=== PATIENT | female | born 2000 | race Caucasian/White ===

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

== ENCOUNTER 2019-02-15 18:34 | Emergency (ER) | payer OTHER ==
[2019-02-15 19:43] VITALS: BP 117/65; PULSE 86; RESP 18; TEMP 98.1
[2019-02-15 20:32] LABS: Appearance,Urine Cloudy (Clear); Bilirubin,Urine Negative (Negative); Blood,Urine Small (Negative); Color,Urine Yellow; Glucose,Urine (UA) Negative (Negative); Ketones,Urine Negative (Negative); Leukocyte Esterase,Urine Large (Negative); Mucus,Urine Many /hpf; Nitrite,Urine Negative (Negative); Protein,Urine 1+ (Negative); RBC,Urine 58 /hpf (0-5); Specific Gravity,Urine 1.032 (1.001-1.035); Squamous Epithelial Cell,Urine 3 /hpf (0-4); Urobilinogen,Urine <2.0 mg/dL (<2.0)
[2019-02-15 20:33] LABS: African American GFR (CKD) >90 (>60 ml/min/1.73 sqM); Anion Gap 8 mmol/L; Blood Urea Nitrogen 12 mg/dL (7-17); Calcium 9.6 mg/dL (8.4-10.2); Carbon Dioxide 24 mmol/L (22-30); Chloride 108 mmol/L (98-107); Glucose 79 mg/dL (74-99); Potassium 3.8 mmol/L (3.5-5.1); Sodium 140 mmol/L (137-145)
--- NOTE | 2019-02-15 20:34 | ED ---
Female Urogenital HPI - General Chief complaint: Urogenital Stated complaint: POSS UTI, 17 WEEKS AND CRAMPING Time Seen by Provider: 02/15/19 19:46 Source: patient Mode of arrival: ambulatory Limitations: no limitations - History of Present Illness Initial comments: Patient is a 18-year-old female presenting to the emergency Department with com plaints of burning when she urinates 1 day. Patient admits to being 17 weeks . Patient is . Patient has [facility] appointment next month with Dr. Solis. Patient has not yet seen her OB for this . Patient also admits to some lower abdominal cramping x 1 day. Patient states the cramping is minimal this time. Patient denies vaginal bleeding, discharge, rashes, lesions. Patient denies fever, chills, nausea, vomiting. No other complaints at this time. - Related Data Previous Rx's Medication Instructions Recorded Cephalexin [Keflex] 500 mg PO BID 5 Days #10 cap 02/15/19 Allergies Allergy/AdvReac Type Severity Reaction Status Date / Time latex Allergy Intermediate Rash/Hives Verified 02/15/19 19:56 Review of Systems ROS Statement: Those systems with pertinent positive or pertinent negative responses have been documented in the HPI. ROS Other: All systems not noted in ROS Statement are negative. Past Medical History Past Medical History: No Reported History Additional Past Medical History / Comment(s): Obstetric history: First was a vaginal delivery. THis is her second and she had care with me since the first trimester. O+, abs neg, Rub Imm, RPR NR, Hep B neg, HIV NR. normal anatomy US. GBS neg History of Any Multi-Drug Resistant Organisms: None Reported Past Surgical History: Hernia Repair, Tonsillectomy Past Anesthesia/Blood Transfusion Reactions: No Reported Reaction Past Psychological History: Anxiety, Depression Smoking Status: Never smoker Past Alcohol Use History: None Reported Past Drug Use History: None Reported - Past Family History Mother Family Medical History: Hypertension General Exam - General Exam Comments Initial Comments: GENERAL: Well-appearing, well-nourished and in no acute distress. HEAD: Atraumatic, normocephalic. EYES: Pupils equal round and reactive to light, extraocular movements intact, sclera anicteric, conjunctiva are normal. ENT: TMs normal, nares patent, oropharynx clear without exudates. Moist mucous membranes. NECK: Normal range of motion, supple without lymphadenopathy or JVD. LUNGS: Breath sounds clear to auscultation bilaterally and equal. No wheezes rales or rhonchi. HEART: Regular rate and rhythm without murmurs, rubs or gallops. ABDOMEN: Soft, nontender, normoactive bowel sounds. No guarding, no rebound. No masses appreciated. : Deferred, pt declined EXTREMITIES: Normal range of motion, no pitting or edema. No clubbing or cyano sis. NEUROLOGICAL: Cranial nerves II through XII grossly intact. Normal speech, normal gait. PSYCH: Normal mood, normal affect. SKIN: Warm, Dry, normal turgor, no rashes or lesions noted. Limitations: no limitations Course Vital Signs 02/15/19 19:40 Temperature 98.1 F Pulse Rate 86 Respiratory 18 Rate Blood Pressure 117/65 O2 Sat by Pulse 97 Oximetry Medical Decision Making - Medical Decision Making Patient is a 18-year-old female presenting with burning with urination 1 day. Patient does admit to being 17 weeks and has an appointment with Dr. Solis next month. Patient denies any vaginal bleeding. Patient does admit to mild lower abdominal cramping 1 day. Patient denies fever, chills, nausea, vomiting. On exam patient has no abdominal tenderness. Patient declined vaginal exam at this time. CBC, CMP are within normal limits. HCG quantitative is 45,000. UA is consistent with UTI with over 182 WBCs. Patient will be treated for UTI with Keflex and will follow-up with Dr. Solis as needed if symptoms do not improve. Patient will be discharged home. Patient is in agreement with this plan. Case discussed with Dr. Schneider. Return parameters were discussed with patient and she verbalized understanding. - Lab Data Result diagrams: 02/15/19 20:20 02/15/19 20:20 Lab Results 02/15/19 02/15/19 02/15/19 Range/Units 20:10 20:10 20:20 WBC (4.0-11.0) k/uL RBC (3.80-5.40) m/uL Hgb (11.4-16.0) gm/dL Hct (34.0-46.0) % MCV (80.0-100.0) fL MCH (25.0-35.0) pg MCHC (31.0-37.0) g/dL RDW (11.5-15.5) % Plt Count (150-450) k/uL Neutrophils % % Lymphocytes % % Monocytes % % Eosinophils % % Basophils % % Neutrophils # (1.3-7.7) k/uL Lymphocytes # (1.0-4.8) k/uL Monocytes # (0-1.0) k/uL Eosinophils # (0-0.7) k/uL Basophils # (0-0.2) k/uL Sodium 140 (137-145) mmol/L Potassium 3.8 (3.5-5.1) mmol/L Chloride 108 H (98-107) mmol/L Carbon Dioxide 24 (22-30) mmol/L Anion Gap 8 mmol/L BUN 12 (7-17) mg/dL Creatinine 0.55 (0.52-1.04) mg/dL Est GFR (CKD-EPI)AfAm >90 (>60 ml/min/1.73 sqM) Est GFR (CKD-EPI)NonAf >90 (>60 ml/min/1.73 sqM) Glucose 79 (74-99) mg/dL Calcium 9.6 (8.4-10.2) mg/dL HCG, Quant 13284.5 mIU/mL Urine Color Yellow Urine Appearance Cloudy H (Clear) Urine pH 6.0 (5.0-8.0) Ur Specific [place] 1.032 (1.001-1.035) Urine Protein 1+ H (Negative) Urine Glucose (UA) Negative (Negative) Urine Ketones Negative (Negative) Urine Blood Small H (Negative) Urine Nitrite Negative (Negative) Urine Bilirubin Negative (Negative) Urine Urobilinogen <2.0 (<2.0) mg/dL Ur Leukocyte Esterase Large H (Negative) Urine RBC 58 H (0-5) /hpf Urine WBC >182 H (0-5) /hpf Ur Squamous Epith Cells 3 (0-4) /hpf Urine Mucus Many H (None) /hpf 02/15/19 Range/Units 20:20 WBC 9.3 (4.0-11.0) k/uL RBC 4.49 (3.80-5.40) m/uL Hgb 11.7 (11.4-16.0) gm/dL Hct 35.4 (34.0-46.0) % MCV 78.9 L (80.0-100.0) fL MCH 26.2 (25.0-35.0) pg MCHC 33.2 (31.0-37.0) g/dL RDW 15.2 (11.5-15.5) % Plt Count 313 (150-450) k/uL Neutrophils % 72 % Lymphocytes % 22 % Monocytes % 3 % Eosinophils % 2 % Basophils % 0 % Neutrophils # 6.7 (1.3-7.7) k/uL Lymphocytes # 2.1 (1.0-4.8) k/uL Monocytes # 0.3 (0-1.0) k/uL Eosinophils # 0.2 (0-0.7) k/uL Basophils # 0.0 (0-0.2) k/uL Sodium (137-145) mmol/L Potassium (3.5-5.1) mmol/L Chloride (98-107) mmol/L Carbon Dioxide (22-30) mmol/L Anion Gap mmol/L BUN (7-17) mg/dL Creatinine (0.52-1.04) mg/dL Est GFR (CKD-EPI)AfAm (>60 ml/min/1.73 sqM) Est GFR (CKD-EPI)NonAf (>60 ml/min/1.73 sqM) Glucose (74-99) mg/dL Calcium (8.4-10.2) mg/dL HCG, Quant mIU/mL Urine Color Urine Appearance (Clear) Urine pH (5.0-8.0) Ur Specific [place] (1.001-1.035) Urine Protein (Negative) Urine Glucose (UA) (Negative) Urine Ketones (Negative) Urine Blood (Negative) Urine Nitrite (Negative) Urine Bilirubin (Negative) Urine Urobilinogen (<2.0) mg/dL Ur Leukocyte Esterase (Negative) Urine RBC (0-5) /hpf Urine WBC (0-5) /hpf Ur Squamous Epith Cells (0-4) /hpf Urine Mucus (None) /hpf Disposition Clinical Impression: Urinary tract infection, and not yet delivered in second trimester Disposition: HOME SELF-CARE Condition: Stable Instructions (If sedation given, give patient instructions): Urinary Tract Infection in Women (ED) Additional Instructions: Please return to the Emergency Department if symptoms worsen or any other concerns. Follow-up with [facility] if symptoms continue in 2-3 days. Prescriptions: Cephalexin [Keflex] 500 mg PO BID 5 Days #10 cap Is patient prescribed a controlled substance at d/c from ED?: No Referrals: Jose Ventura MD [Primary Care Provider] - 1-2 days
[2019-02-15 20:37] LABS: Basophils % (A) 0 %; Eosinophils # (A) 0.2 k/uL (0-0.7); Eosinophils % (A) 2 %; HCT 35.4 % (34.0-46.0); HGB 11.7 gm/dL (11.4-16.0); Lymphocytes # (A) 2.1 k/uL (1.0-4.8); Lymphocytes % (A) 22 %; MCH 26.2 pg (25.0-35.0); MCHC 33.2 g/dL (31.0-37.0); MCV 78.9 fL (80.0-100.0); Monocytes # (A) 0.3 k/uL (0-1.0); Monocytes % (A) 3 %; Neutrophils # (A) 6.7 k/uL (1.3-7.7); Neutrophils % (A) 72 %; Platelet Count 313 k/uL (150-450); RBC 4.49 m/uL (3.80-5.40); RDW 15.2 % (11.5-15.5); WBC 9.3 k/uL (4.0-11.0)
== END 2019-02-15 22:23 | disposition home or self-care (01) ==
LOC: EC 18:34
DX: O23.42 Unspecified infection of urinary tract in pregnancy, second trimester (principal); Z91.040 Latex allergy status; Z3A.17 17 weeks gestation of pregnancy; Z53.20 Procedure and treatment not carried out because of patient's decision for unspecified reasons
CPT/HCPCS: 36415; 80048; 81001; 84702; 85025; 87086; 99284

== ENCOUNTER 2019-08-19 05:54 | Inpatient (IN) | payer OTHER ==
[2019-08-19] MEDS ORDERED: CARBOPROST TROMETHAMINE 250 MCG/ML 1 ML AMP IM PRN (06:05)
[2019-08-19] MEDS ORDERED: OXYTOCIN 10 UNIT/ML 1 ML VIAL IM PRN (06:05)
[2019-08-19] MEDS ORDERED: LIDOCAINE 0.5% (PF) 5 MG/ML (50 ML SDV) SQ PRN (06:05)
[2019-08-19] MEDS ORDERED: METHYLERGONOVINE 0.2 MG/ML 1 ML AMP IM PRN (06:05)
[2019-08-19] MEDS ORDERED: TERBUTALINE 1 MG/ML VIAL SQ PRN (06:05)
[2019-08-19] MEDS ORDERED: OXYTOCIN 30 UNITS/500 ML NS 30 UNIT in SALINE 1 500ML.BAG IV SCH (06:15)
[2019-08-19] MEDS: LACTATED RINGERS 1,000 ML IV SCH ×3 (06:30→12:19)
[2019-08-19 06:46] LABS: Basophils % (A) 0 %; Eosinophils # (A) 0.1 k/uL (0-0.7); Eosinophils % (A) 1 %; HCT 35.9 % (34.0-46.0); HGB 11.9 gm/dL (11.4-16.0); Lymphocytes # (A) 1.7 k/uL (1.0-4.8); Lymphocytes % (A) 16 %; MCH 26.9 pg (25.0-35.0); MCHC 33.3 g/dL (31.0-37.0); MCV 80.8 fL (80.0-100.0); Mean Platelet Volume 7.3; Monocytes # (A) 0.4 k/uL (0-1.0); Monocytes % (A) 4 %; Neutrophils # (A) 8.8 k/uL (1.3-7.7); Neutrophils % (A) 79 %; Platelet Count 294 k/uL (150-450); RBC 4.44 m/uL (3.80-5.40); RDW 14.5 % (11.5-15.5); WBC 11.2 k/uL (4.0-11.0)
[2019-08-19] MEDS ORDERED: SODIUM CHLORIDE 0.9% 100 ML BAG ONE (10:41)
[2019-08-19] MEDS ORDERED: ROPIVACAINE 5MG/ML 20ML VIAL ONE (10:41)
[2019-08-19] MEDS ORDERED: fentaNYL (PF) 50 MCG/ML 5 ML AMP ONE (10:41)
--- NOTE | 2019-08-19 12:57 | P.HPOB ---
History of Present Illness H&P Date: 08/19/19 Chief Complaint: Induction of labor 19-year-old presents at 39 weeks for induction of labor. Her cervix was 2 cm dilated, 70% effaced, and -2 station. She is robin irregularly. heart tones 130 with moderate variability and reactive. Review of Systems All systems: negative Constitutional: Denies chills, Denies fever Eyes: denies blurred vision, denies pain Ears, nose, mouth and throat: Denies headache, Denies sore throat Cardiovascular: Denies chest pain, Denies shortness of breath Respiratory: Denies cough Gastrointestinal: Denies abdominal pain, Denies diarrhea, Denies nausea, Denies vomiting Genitourinary: Denies dysuria, Denies hematuria Musculoskeletal: Denies myalgias Integumentary: Denies pruritus, Denies rash Neurological: Denies numbness, Denies weakness Psychiatric: Denies anxiety, Denies depression Endocrine: Denies fatigue, Denies weight change Past Medical History Past Medical History: No Reported History Additional Past Medical History / Comment(s): Obstetric history: First 2 pregnancies were vaginal deliveries. THis is her second and she had care with me since the first trimester. She did have 7 weeks in the middle of her when she did not have care as she did not show up for her visits. O+, abs neg, Rub Imm, RPR NR, Hep B neg, HIV NR. normal anatomy US. GBS neg History of Any Multi-Drug Resistant Organisms: None Reported Past Surgical History: Hernia Repair, Tonsillectomy Past Anesthesia/Blood Transfusion Reactions: No Reported Reaction Past Psychological History: Anxiety, Depression Smoking Status: Never smoker Past Alcohol Use History: None Reported Past Drug Use History: None Reported - Past Family History Mother Family Medical History: Hypertension Medications and Allergies Home Medications Medication Instructions Recorded Confirmed Type No Known Home Medications 08/19/19 08/19/19 History Allergies Allergy/AdvReac Type Severity Reaction Status Date / Time latex Allergy Intermediate Rash/Hives Verified 08/19/19 06:04 Exam Osteopathic Statement: *. No significant issues noted on an osteopathic st ructural exam other than those noted in the History and Physical/Consult. Vital Signs Temp Pulse Resp BP Pulse Ox 08/19/19 06:06 97.7 F 100 18 128/94 99 Intake and Output 08/18/19 08/19/19 08/19/19 22:59 06:59 14:59 Other: Weight 115.666 kg Heart: Regular rate and rhythm Lungs: Clear to auscultation bilaterally Abdomen: Soft, nontender Extremities: Negative Homans sign Results Result Diagrams: 08/19/19 06:30 Abnormal Lab Results - Last 24 Hours (Table) 08/19/19 Range/Units 06:30 WBC 11.2 H (4.0-11.0) k/uL Neutrophils # 8.8 H (1.3-7.7) k/uL Assessment and Plan (1) Normal labor Current Visit: No Status: Resolved Code(s): O80 - ENCOUNTER FOR FULL-TERM UNCOMPLICATED DELIVERY SNOMED Code(s): 73971317 Plan: 1. Induction of labor with amniotomy and Pitocin 2. Anticipate normal vaginal delivery
[2019-08-19] MEDS ORDERED: ACETAMINOPHEN TAB 325 MG TAB PO PRN (16:29)
[2019-08-19] MEDS ORDERED: SIMETHICONE 80 MG CHEWABLE PO PRN (16:29)
[2019-08-19] MEDS ORDERED: WITCH HAZEL 1 EACH MED..PAD TOPICAL PRN (16:29)
[2019-08-19] MEDS ORDERED: ZOLPIDEM 5 MG TAB PO PRN (16:29)
[2019-08-19] MEDS ORDERED: BENZOCAINE/MENTHOL SPRAY 1 GM/SPRAY AEROSOL TOPICAL PRN (16:29)
[2019-08-19] MEDS ORDERED: diphenhydrAMINE 50 MG/ML 1 ML VIAL IVP PRN ×2 (16:29)
[2019-08-19] MEDS ORDERED: HYDROCORTISONE 2.5% RECTAL CREAM 30 GM TUBE RECTAL PRN (16:29)
[2019-08-19] MEDS ORDERED: diphenhydrAMINE 25 MG CAP PO PRN (16:29)
[2019-08-19] MEDS ORDERED: LANOLIN CREAM 5 GM TUBE TOPICAL PRN (16:29)
[2019-08-19] MEDS ORDERED: diphenhydrAMINE 50 MG CAP PO PRN (16:29)
[2019-08-19] MEDS ORDERED: OXYTOCIN 20 UNITS/1000 ML NS 1,000 ML IV SCH (16:30)
--- NOTE | 2019-08-19 17:26 | P.PROBDLV ---
Vaginal Delivery Note - . Vaginal Delivery Note: 19-year-old presents at 39 weeks for induction of labor. Her cervix was 2 cm dilated, 70% effaced, and -2 station. She is robin irregularly. heart tones 130 with moderate variability and reactive. Pitocin was started. Amniotomy performed at 7:30 AM and clear fluid noted. When she was uncomfortable she did get an epidural. Around noon she was 5 cm, 80% effaced, and -2 station. Her cervix is completely dilated at 1600. She pushed and delivered a viable female over intact perineum under epidural anesthesia at 1614. Head delivered OA, anterior shoulder delivered gentle downward guidance. Posterior shoulder and rest of body. Nose and mouth bulb suctioned, cord clamped and cut, placed mother's abdomen. Apgars 9, 9, weight 6 lbs. 14 oz. Placenta delivered spontaneously, intact with three-vessel cord at 1616. Vagina, cervix, and perineum were inspected. A right periurethral laceration was repaired with 3-0 Vicryl. Estimated blood loss 150 mL. Mother and baby in stable condition.
[2019-08-19] MEDS: SENNOSIDES-DOCUSATE SODIUM 1 EACH TAB PO SCH (21:30)
[2019-08-20] MEDS: IBUPROFEN 600 MG TAB PO PRN ×2 (02:28→12:52)
[2019-08-20 04:39] VITALS: TEMP 98.2
[2019-08-20 07:42] LABS: Basophils # (A) 0.1 k/uL (0-0.2); Basophils % (A) 1 %; Eosinophils # (A) 0.1 k/uL (0-0.7); Eosinophils % (A) 1 %; HCT 31.7 % (34.0-46.0); HGB 10.7 gm/dL (11.4-16.0); Lymphocytes # (A) 1.7 k/uL (1.0-4.8); Lymphocytes % (A) 16 %; MCH 27.4 pg (25.0-35.0); MCHC 33.8 g/dL (31.0-37.0); Mean Platelet Volume 7.6; Monocytes # (A) 0.4 k/uL (0-1.0); Monocytes % (A) 4 %; Neutrophils # (A) 8.6 k/uL (1.3-7.7); Neutrophils % (A) 79 %; Platelet Count 277 k/uL (150-450); RBC 3.91 m/uL (3.80-5.40); RDW 14.3 % (11.5-15.5); WBC 10.9 k/uL (4.0-11.0)
[2019-08-20] MEDS: SENNOSIDES-DOCUSATE SODIUM 1 EACH TAB PO SCH (09:24)
[2019-08-20 09:25] VITALS: BP 131/70; PULSE 83; RESP 16
--- NOTE | 2019-08-20 11:16 | DS ---
DISCHARGE SUMMARY PRINCIPAL DIAGNOSIS: day 2. This very pleasant 19-year-old female delivered via vaginal delivery, a viable female on 08/18/2019. She is doing very well today. She is ambulating, voiding, and tolerating her diet and she voices no complaints. Her vital signs are stable and afebrile. HEART: Regular. LUNGS: Clear. EXTREMITIES: Without pain. ABDOMEN: Soft. Uterus was firm and lochia is reported to be light. Prescription for Motrin has been provided. Discharge instructions were thoroughly reviewed and handout was provided. All questions were answered for her prior to her discharge. She will follow up with Dr. Solis in 6 weeks. MMODL / IJN: [id number] /
== END 2019-08-20 17:15 | disposition home or self-care (01) | DRG 807 ==
LOC: 4FBP 05:54
PROVIDERS: ADMIT Obstetrics & Gynecology; ATTEND Obstetrics & Gynecology
PROC: 10E0XZZ Delivery of Products of Conception, External Approach (ICD-10-PCS; principal; 2019-08-19)
PROC: 0HQ9XZZ Repair Perineum Skin, External Approach (ICD-10-PCS; 2019-08-19)
PROC: 00HU33Z Insertion of Infusion Device into Spinal Canal, Percutaneous Approach (ICD-10-PCS; 2019-08-19)
PROC: 3E0R3BZ Introduction of Anesthetic Agent into Spinal Canal, Percutaneous Approach (ICD-10-PCS; 2019-08-19)
DX: O99.62 Diseases of the digestive system complicating childbirth (principal); Z37.0 Single live birth; O71.82 Other specified trauma to perineum and vulva; K21.9 Gastro-esophageal reflux disease without esophagitis; Z3A.39 39 weeks gestation of pregnancy; Z86.59 Personal history of other mental and behavioral disorders; Z91.040 Latex allergy status; Z82.49 Family history of ischemic heart disease and other diseases of the circulatory system
CPT/HCPCS: 85025; 86850; 86900; 86901

== ENCOUNTER 2020-04-08 16:17 | Emergency (ER) | payer OTHER ==
[2020-04-08 16:33] VITALS: BP 124/82; PULSE 87; RESP 18; TEMP 98
[2020-04-08 18:12] LABS: Basophils # (A) 0.1 k/uL (0-0.2); Basophils % (A) 1 %; Eosinophils # (A) 0.2 k/uL (0-0.7); Eosinophils % (A) 2 %; HCT 37.8 % (34.0-46.0); HGB 12.3 gm/dL (11.4-16.0); Lymphocytes # (A) 2.2 k/uL (1.0-4.8); Lymphocytes % (A) 20 %; MCH 24.9 pg (25.0-35.0); MCHC 32.5 g/dL (31.0-37.0); MCV 76.7 fL (80.0-100.0); Mean Platelet Volume 6.8; Microcytosis Slight; Monocytes # (A) 0.4 k/uL (0-1.0); Monocytes % (A) 4 %; Neutrophils # (A) 8.1 k/uL (1.3-7.7); Neutrophils % (A) 73 %; Platelet Count 361 k/uL (150-450); RBC 4.93 m/uL (3.80-5.40); RDW 14.8 % (11.5-15.5); WBC 11.1 k/uL (3.8-10.6)
[2020-04-08 18:16] LABS: Appearance,Urine Turbid (Clear); Bacteria,Urine Few /hpf; Bilirubin,Urine Negative (Negative); Blood,Urine Negative (Negative); Color,Urine Yellow; Glucose,Urine (UA) Negative (Negative); Ketones,Urine Negative (Negative); Leukocyte Esterase,Urine Small (Negative); Mucus,Urine Many /hpf; Nitrite,Urine Negative (Negative); Protein,Urine Trace (Negative); RBC,Urine 3 /hpf (0-5); Specific Gravity,Urine 1.032 (1.001-1.035); Squamous Epithelial Cell,Urine 40 /hpf (0-4); Urobilinogen,Urine <2.0 mg/dL (<2.0); WBC,Urine 5 /hpf (0-5)
--- NOTE | 2020-04-08 18:16 | XR ---
EXAMINATION TYPE: XR chest 2V DATE OF EXAM: 04/08/2020 COMPARISON: NONE HISTORY: Chest pain TECHNIQUE: FINDINGS: Heart and mediastinum are normal. Lungs are clear. Diaphragm is normal. Bony thorax appears normal. IMPRESSION: Normal chest. Normal heart.
[2020-04-08 18:22] LABS: ALT 18 U/L (4-34); AST 24 U/L (14-36); African American GFR (CKD) >90 (>60 ml/min/1.73 sqM); Albumin 4.3 g/dL (3.5-5.0); Alkaline Phosphatase 78 U/L (38-126); Anion Gap 7 mmol/L; Blood Urea Nitrogen 16 mg/dL (7-17); Calcium 9.7 mg/dL (8.4-10.2); Carbon Dioxide 27 mmol/L (22-30); Chloride 103 mmol/L (98-107); Glucose 95 mg/dL (74-99); Non-African American GFR(CKD) >90 (>60 ml/min/1.73 sqM); Potassium 4.2 mmol/L (3.5-5.1); Sodium 137 mmol/L (137-145); Total Bilirubin 0.7 mg/dL (0.2-1.3); Total Protein 7.2 g/dL (6.3-8.2)
[2020-04-08 18:26] LABS: D-Dimer 0.55 mg/L FEU (<0.60); INR 0.9 (<1.2); Partial Thromboplastin Time 24.2 sec (22.0-30.0); Prothrombin Time 9.8 sec (9.0-12.0)
--- NOTE | 2020-04-08 18:37 | ED ---
Abdominal Pain HPI - General Chief Complaint: Abdominal Pain Stated Complaint: chest pain Time Seen by Provider: 04/08/20 17:05 Source: patient Mode of arrival: ambulatory Limitations: no limitations - History of Present Illness Initial Comments: Patient is a 20-year-old female who presents to the emergency room with reported epigastric abdominal pain and chest pain for the past 2 months. Reports it has been intermittent. Denies any provocative factors. Admits to associated nausea without vomiting. Denies taking any medications for her symptoms. No previous abdominal surgeries. Denies any lower pelvic pain. No fevers or chills. Denies any vomiting. No cough or hemoptysis. Denies any shortness of breath. No history of premature cardiac in her family. She denies concern for . No abnormal vaginal bleeding or discharge. No dysuria, hematuria or difficulty voiding. Denies patient, diarrhea, melenic stools or hematochezia. No other alleviating, precipitating or modifying factors - Related Data Home Medications Medication Instructions Recorded Confirmed No Known Home Medications 08/19/19 08/19/19 Allergies Allergy/AdvReac Type Severity Reaction Status Date / Time latex Allergy Intermediate Rash/Hives Verified 04/08/20 16:33 Review of Systems ROS Statement: Those systems with pertinent positive or pertinent negative responses have been documented in the HPI. ROS Other: All systems not noted in ROS Statement are negative. Past Medical History Past Medical History: No Reported History Additional Past Medical History / Comment(s): Obstetric history: First 2 pregnancies were vaginal deliveries. THis is her second and she had care with tx since the first trimester. She did have 7 weeks in the middle of her when she did not have care as she did not show up for her visits. O+, abs neg, Rub Imm, RPR NR, Hep B neg, HIV NR. normal anatomy US. GBS neg History of Any Multi-Drug Resistant Organisms: None Reported Past Surgical History: Hernia Repair, Tonsillectomy Past Anesthesia/Blood Transfusion Reactions: No Reported Reaction Past Psychological History: Anxiety, Depression Smoking Status: Never smoker Past Alcohol Use History: None Reported Past Drug Use History: None Reported - Past Family History Mother Family Medical History: Hypertension General Exam Limitations: no limitations General appearance: alert, in no apparent distress Head exam: Present: atraumatic, normocephalic, normal inspection Eye exam: Present: normal appearance, PERRL, EOMI. Absent: scleral icterus, conjunctival injection, periorbital swelling ENT exam: Present: normal exam, mucous membranes moist Neck exam: Present: normal inspection. Absent: tenderness, meningismus, lymphadenopathy Respiratory exam: Present: normal lung sounds bilaterally. Absent: respiratory distress, wheezes, rales, rhonchi, stridor Cardiovascular Exam: Present: regular rate, normal rhythm, normal heart sounds. Absent: systolic murmur, diastolic murmur, rubs, gallop, clicks GI/Abdominal exam: Present: soft, tenderness (epigastric), normal bowel sounds. Absent: distended, guarding, rebound, rigid Extremities exam: Present: normal inspection, full ROM, normal capillary refill. Absent: tenderness, pedal edema, joint swelling, calf tenderness Back exam: Present: normal inspection Neurological exam: Present: alert, oriented X3, CN II-XII intact Psychiatric exam: Present: normal affect, normal mood Skin exam: Present: warm, dry, intact, normal color. Absent: rash Course Vital Signs 04/08/20 16:28 Temperature 98 F Pulse Rate 87 Respiratory 18 Rate Blood Pressure 124/82 O2 Sat by Pulse 99 Oximetry Medical Decision Making - Medical Decision Making Upon arrival patient is placed into room 20. A thorough history and physical exam was performed. PIV is established. Laboratory studies were conducted. The lead EKG was performed. Patient went for chest x-ray because of reported chest pain. Ultrasound was also performed of her gallbladder. Laboratory studies are unremarkable. Urinalysis is not a clean catch. Negative hCG. Chest x-ray demonstrates no acute findings. A bladder ultrasound demonstrates cholelithiasis. No signs of acute cholecystitis. Patient did have an elevated d-dimer. She is sent over for a CT of her chest which demonstrates no signs of PE. The results are discussed with the patient. I discussed diagnosis, differential and treatment options. Patient will be discharged home and is to eat a low-fat diet. Follow up with the surgeon on-call, Dr. Gonzales for further treatment options. Return to the emergency department should she have any new or worsening symptoms per patient was discharged home in stable condition - Lab Data Result diagrams: 04/08/20 17:40 04/08/20 17:40 Lab Results 04/08/20 04/08/20 04/08/20 Range/Units 17:40 17:40 17:40 WBC 11.1 H (3.8-10.6) k/uL RBC 4.93 (3.80-5.40) m/uL Hgb 12.3 (11.4-16.0) gm/dL Hct 37.8 (34.0-46.0) % MCV 76.7 L (80.0-100.0) fL MCH 24.9 L (25.0-35.0) pg MCHC 32.5 (31.0-37.0) g/dL RDW 14.8 (11.5-15.5) % Plt Count 361 (150-450) k/uL Neutrophils % 73 % Lymphocytes % 20 % Monocytes % 4 % Eosinophils % 2 % Basophils % 1 % Neutrophils # 8.1 H (1.3-7.7) k/uL Lymphocytes # 2.2 (1.0-4.8) k/uL Monocytes # 0.4 (0-1.0) k/uL Eosinophils # 0.2 (0-0.7) k/uL Basophils # 0.1 (0-0.2) k/uL Microcytosis Slight PT 9.8 (9.0-12.0) sec INR 0.9 (<1.2) APTT 24.2 (22.0-30.0) sec D-Dimer 0.55 (<0.60) mg/L FEU Sodium (137-145) mmol/L Potassium (3.5-5.1) mmol/L Chloride (98-107) mmol/L Carbon Dioxide (22-30) mmol/L Anion Gap mmol/L BUN (7-17) mg/dL Creatinine (0.52-1.04) mg/dL Est GFR (CKD-EPI)AfAm (>60 ml/min/1.73 sqM) Est GFR (CKD-EPI)NonAf (>60 ml/min/1.73 sqM) Glucose (74-99) mg/dL Calcium (8.4-10.2) mg/dL Total Bilirubin (0.2-1.3) mg/dL AST (14-36) U/L ALT (4-34) U/L Alkaline Phosphatase (38-126) U/L Troponin I (0.000-0.034) ng/mL Total Protein (6.3-8.2) g/dL Albumin (3.5-5.0) g/dL Lipase (23-300) U/L Urine Color Yellow Urine Appearance Turbid H (Clear) Urine pH 5.0 (5.0-8.0) Ur Specific [place] 1.032 (1.001-1.035) Urine Protein Trace H (Negative) Urine Glucose (UA) Negative (Negative) Urine Ketones Negative (Negative) Urine Blood Negative (Negative) Urine Nitrite Negative (Negative) Urine Bilirubin Negative (Negative) Urine Urobilinogen <2.0 (<2.0) mg/dL Ur Leukocyte Esterase Small H (Negative) Urine RBC 3 (0-5) /hpf Urine WBC 5 (0-5) /hpf Ur Squamous Epith Cells 40 H (0-4) /hpf Urine Bacteria Few H (None) /hpf Urine Mucus Many H (None) /hpf Urine HCG, Qual (Not Detectd) 04/08/20 04/08/20 04/08/20 Range/Units 17:40 17:40 17:40 WBC (3.8-10.6) k/uL RBC (3.80-5.40) m/uL Hgb (11.4-16.0) gm/dL Hct (34.0-46.0) % MCV (80.0-100.0) fL MCH (25.0-35.0) pg MCHC (31.0-37.0) g/dL RDW (11.5-15.5) % Plt Count (150-450) k/uL Neutrophils % % Lymphocytes % % Monocytes % % Eosinophils % % Basophils % % Neutrophils # (1.3-7.7) k/uL Lymphocytes # (1.0-4.8) k/uL Monocytes # (0-1.0) k/uL Eosinophils # (0-0.7) k/uL Basophils # (0-0.2) k/uL Microcytosis PT (9.0-12.0) sec INR (<1.2) APTT (22.0-30.0) sec D-Dimer (<0.60) mg/L FEU Sodium 137 (137-145) mmol/L Potassium 4.2 (3.5-5.1) mmol/L Chloride 103 (98-107) mmol/L Carbon Dioxide 27 (22-30) mmol/L Anion Gap 7 mmol/L BUN 16 (7-17) mg/dL Creatinine 0.64 (0.52-1.04) mg/dL Est GFR (CKD-EPI)AfAm >90 (>60 ml/min/1.73 sqM) Est GFR (CKD-EPI)NonAf >90 (>60 ml/min/1.73 sqM) Glucose 95 (74-99) mg/dL Calcium 9.7 (8.4-10.2) mg/dL Total Bilirubin 0.7 (0.2-1.3) mg/dL AST 24 (14-36) U/L ALT 18 (4-34) U/L Alkaline Phosphatase 78 (38-126) U/L Troponin I <0.012 (0.000-0.034) ng/mL Total Protein 7.2 (6.3-8.2) g/dL Albumin 4.3 (3.5-5.0) g/dL Lipase 35 (23-300) U/L Urine Color Urine Appearance (Clear) Urine pH (5.0-8.0) Ur Specific [place] (1.001-1.035) Urine Protein (Negative) Urine Glucose (UA) (Negative) Urine Ketones (Negative) Urine Blood (Negative) Urine Nitrite (Negative) Urine Bilirubin (Negative) Urine Urobilinogen (<2.0) mg/dL Ur Leukocyte Esterase (Negative) Urine RBC (0-5) /hpf Urine WBC (0-5) /hpf Ur Squamous Epith Cells (0-4) /hpf Urine Bacteria (None) /hpf Urine Mucus (None) /hpf Urine HCG, Qual Not Detected (Not Detectd) - EKG Data EKG Comments: EKG demonstrates a normal sinus rhythm with a ventricular rate of 82. WV interval 186. QRS 98. QTC of 4 mL 4. No acute ST segment elevations or depressions concerning for ischemic changes Disposition Clinical Impression: Abdominal pain, Cholelithiasis Disposition: HOME SELF-CARE Condition: Stable Instructions (If sedation given, give patient instructions): Gallstones (ED) Additional Instructions: Please follow up with the surgeon for further treatment options. Return to the emergency room for any new or worsening symptoms Is patient prescribed a controlled substance at d/c from ED?: No Referrals: None,Stated [Primary Care Provider] - 1-2 days Vaishnavi Gonzales DO [Doctor of Osteopathic Medicine] - 1-2 days Time of Disposition: 20:01
--- NOTE | 2020-04-08 18:40 | US ---
EXAMINATION TYPE: US gallbladder DATE OF EXAM: 04/08/2020 COMPARISON: NONE CLINICAL HISTORY: trauma. Pt states chest pain and excessive belching post prandial EXAM MEASUREMENTS: Liver Length: 16.1 cm Gallbladder Wall: 0.3 cm CBD: 0.3 cm Right Kidney: 10.2 x 4.2 x 5.1 cm Morbidly obese pt unable to take full breath in and hold it/ Difficult exam Pancreas: wnl, tail obscured by overlying bowel gas Liver: Visualized portions appeared wnl, difficult to visualize due to large pt body habitus Gallbladder: Lumen filled with gallstones, wall thickness upper limits of normal Evidence for sonographic Jean's sign: No CBD: wnl Right Kidney: wnl IMPRESSION: Numerous gallstones. No definite sign of acute cholecystitis. No dilated ducts.
--- NOTE | 2020-04-08 19:44 | CT ---
EXAMINATION TYPE: CT chest angio for PE DATE OF EXAM: 04/08/2020 COMPARISON: None HISTORY: chest discomfort CT DLP: 1011.1 mGycm Automated exposure control for dose reduction was used. CONTRAST: Performed with IV Contrast, patient injected with 77cc mL of Isovue 370. Lung bases are clear. There is no pleural effusion. Heart size is normal. There is no pericardial eff usion. The lungs are clear of infiltrate. Liver spleen stomach pancreas appear normal. Bile ducts are not dilated. There are probably multiple calcified gallstones. There is no pericardial effusion. There is no mediastinal adenopathy. There are no hilar masses. Thor acic aorta is intact. There is no aneurysm or dissection. There is normal contrast opacification of the pulmonary arteries. There are no filling defects. Thora cic spine is intact. Sternum is intact. IMPRESSION: No evidence of pulmonary embolism. Lungs are clear. Cholelithiasis.
== END 2020-04-08 20:32 | disposition home or self-care (01) ==
LOC: EC 16:17
DX: K80.20 Calculus of gallbladder without cholecystitis without obstruction (principal); R07.9 Chest pain, unspecified; R79.89 Other specified abnormal findings of blood chemistry; Z91.040 Latex allergy status
CPT/HCPCS: 99284; 36415; 93005; 85379; 80053; 83690; 84484; 85025; 85610; 85730; 81001; 81025; 71046; 76705; 71275; Q9967

== ENCOUNTER 2020-05-21 00:53 | Emergency (ER) | payer OTHER ==
[2020-05-21] MEDS ORDERED: SODIUM CHLORIDE 0.9% 1,000 ML IV ONE (01:16)
[2020-05-21 01:42] LABS: Basophils % (A) 0 %; Eosinophils # (A) 0.3 k/uL (0-0.7); Eosinophils % (A) 3 %; HCT 39.5 % (34.0-46.0); HGB 12.3 gm/dL (11.4-16.0); Lymphocytes # (A) 2.5 k/uL (1.0-4.8); Lymphocytes % (A) 29 %; MCH 24.8 pg (25.0-35.0); MCV 79.9 fL (80.0-100.0); Mean Platelet Volume 6.9; Monocytes # (A) 0.4 k/uL (0-1.0); Monocytes % (A) 4 %; Neutrophils # (A) 5.4 k/uL (1.3-7.7); Neutrophils % (A) 62 %; Platelet Count 328 k/uL (150-450); RBC 4.95 m/uL (3.80-5.40); RDW 14.8 % (11.5-15.5); WBC 8.7 k/uL (3.8-10.6)
--- NOTE | 2020-05-21 02:19 | ED ---
Extremity Problem HPI - General Chief complaint: Extremity Problem,Nontraumatic Stated complaint: Leg Pain Time Seen by Provider: 05/21/20 01:15 Source: patient Mode of arrival: ambulatory Limitations: no limitations - History of Present Illness Initial comments: Torrie is a previously healthy 20 yo female presents the ER today for reevaluation of bilateral lower extremity pain. Patient reports that she's had pain in her bilateral lower extremities for approximately 3-4 days. Pain is not constant, it alternates between each legs and sometimes present in both legs. Pain is described as an ache that feels like it comes from them bones. She also reports intermittent numbness and tingling of her toes the states that this week she had been wearing shoes that were too small for her when walking to get her son from school and she thought that that was contributing to her pain. She has not noted any swelling or color change in her legs. She was seen at the walk-in clinic earlier today the tested her for diabetes and and advised that she follow-up with her primary care physician. She has no history of blood clots she is not on any estrogen supplements she does not have any known cancers no long trips or immobilization of the leg. - Related Data Home Medications Medication Instructions Recorded Confirmed No Known Home Medications 08/19/19 08/19/19 Allergies Allergy/AdvReac Type Severity Reaction Status Date / Time latex Allergy Intermediate Rash/Hives Verified 05/21/20 01:02 Review of Systems ROS Statement: Those systems with pertinent positive or pertinent negative responses have been documented in the HPI. ROS Other: All systems not noted in ROS Statement are negative. Past Medical History Past Medical History: No Reported History Additional Past Medical History / Comment(s): Obstetric history: First 2 preg nancies were vaginal deliveries. THis is her second and she had care with me since the first trimester. She did have 7 weeks in the middle of her when she did not have care as she did not show up for her visits. O+, abs neg, Rub Imm, RPR NR, Hep B neg, HIV NR. normal anatomy US. GBS neg History of Any Multi-Drug Resistant Organisms: None Reported Past Surgical History: Hernia Repair, Tonsillectomy Past Anesthesia/Blood Transfusion Reactions: No Reported Reaction Past Psychological History: Anxiety, Depression Smoking Status: Never smoker Past Alcohol Use History: None Reported Past Drug Use History: None Reported - Past Family History Mother Family Medical History: Hypertension General Exam - General Exam Comments Initial Comments: Physical Exam GENERAL: Patient is well-developed and well-nourished. Patient is nontoxic and well-hydrated and is in no distress. HENT: Normocephalic, Atraumatic. EYES: PERRL, EOMI PULMONARY: Unlabored respirations. CARDIOVASCULAR: RRR Warm and well perfused extremities No lower extremity edema Strong DP and PT pulses bilaterally ABDOMEN: Non-distended SKIN: No rashes or bruising : Deferred NEUROLOGIC: Alert and oriented Normal speech Normal gait MUSCULOSKELETAL: Moving all extremities with no apparent injury PSYCHIATRIC: No SI/HI Limitations: no limitations Course Vital Signs 05/21/20 00:57 Temperature 98 F Pulse Rate 100 Respiratory 18 Rate Blood Pressure 140/94 O2 Sat by Pulse 100 Oximetry Medical Decision Making - Medical Decision Making The patient was seen and evaluated history was obtained from patient Patient's been experiencing intermittent cramping of her lower extremities, not constant, alternates between legs occasionally present in both legs Patient did have excessive walking this week to get her son to and from school and does report that she was she was wearing were 2 small Physical exams unremarkable there is no edema she has strong pulses good color good cap refill Basic labs were ordered to make sure there is no evidence of elevated creatinine kinase or any electrolyte abnormalities Labs were unremarkable, patient be discharged home with supportive care for her muscle aches. - Lab Data Result diagrams: 05/21/20 01:22 05/21/20 01:22 Lab Results 05/21/20 05/21/20 Range/Units 01:22 01:22 WBC 8.7 (3.8-10.6) k/uL RBC 4.95 (3.80-5.40) m/uL Hgb 12.3 (11.4-16.0) gm/dL Hct 39.5 (34.0-46.0) % MCV 79.9 L (80.0-100.0) fL MCH 24.8 L (25.0-35.0) pg MCHC 31.0 (31.0-37.0) g/dL RDW 14.8 (11.5-15.5) % Plt Count 328 (150-450) k/uL Neutrophils % 62 % Lymphocytes % 29 % Monocytes % 4 % Eosinophils % 3 % Basophils % 0 % Neutrophils # 5.4 (1.3-7.7) k/uL Lymphocytes # 2.5 (1.0-4.8) k/uL Monocytes # 0.4 (0-1.0) k/uL Eosinophils # 0.3 (0-0.7) k/uL Basophils # 0.0 (0-0.2) k/uL Sodium 139 (137-145) mmol/L Potassium 4.2 (3.5-5.1) mmol/L Chloride 106 (98-107) mmol/L Carbon Dioxide 26 (22-30) mmol/L Anion Gap 7 mmol/L BUN 16 (7-17) mg/dL Creatinine 0.69 (0.52-1.04) mg/dL Est GFR (CKD-EPI)AfAm >90 (>60 ml/min/1.73 sqM) Est GFR (CKD-EPI)NonAf >90 (>60 ml/min/1.73 sqM) Glucose 136 H (74-99) mg/dL Calcium 9.5 (8.4-10.2) mg/dL Magnesium 2.0 (1.6-2.3) mg/dL Total Bilirubin 0.4 (0.2-1.3) mg/dL AST 21 (14-36) U/L ALT 17 (4-34) U/L Alkaline Phosphatase 65 (38-126) U/L Creatine Kinase 34 (30-135) U/L Total Protein 6.6 (6.3-8.2) g/dL Albumin 4.1 (3.5-5.0) g/dL Disposition Clinical Impression: Muscle ache of extremity Disposition: HOME SELF-CARE Condition: Stable Instructions (If sedation given, give patient instructions): Musculoskeletal Pain (ED) Is patient prescribed a controlled substance at d/c from ED?: No Referrals: None,Stated [Primary Care Provider] - 1-2 days
[2020-05-21 02:28] LABS: ALT 17 U/L (4-34); AST 21 U/L (14-36); African American GFR (CKD) >90 (>60 ml/min/1.73 sqM); Albumin 4.1 g/dL (3.5-5.0); Alkaline Phosphatase 65 U/L (38-126); Anion Gap 7 mmol/L; Blood Urea Nitrogen 16 mg/dL (7-17); Calcium 9.5 mg/dL (8.4-10.2); Carbon Dioxide 26 mmol/L (22-30); Chloride 106 mmol/L (98-107); Creatine Kinase 34 U/L (30-135); Glucose 136 mg/dL (74-99); Non-African American GFR(CKD) >90 (>60 ml/min/1.73 sqM); Potassium 4.2 mmol/L (3.5-5.1); Sodium 139 mmol/L (137-145); Total Bilirubin 0.4 mg/dL (0.2-1.3); Total Protein 6.6 g/dL (6.3-8.2)
[2020-05-21 03:01] VITALS: BP 97/62; PULSE 88; RESP 16; TEMP 98.9
== END 2020-05-21 03:01 | disposition home or self-care (01) ==
LOC: EC 00:53
DX: M79.18 Myalgia, other site (principal); R25.2 Cramp and spasm; Z91.040 Latex allergy status
CPT/HCPCS: 36415; 80053; 82550; 83735; 85025; 96360; 99283

== ENCOUNTER 2020-07-04 21:22 | Emergency (ER) | payer OTHER ==
[2020-07-04 21:53] VITALS: BP 122/79; PULSE 94; RESP 20; TEMP 99.2
--- NOTE | 2020-07-04 22:20 | ED ---
Headache HPI - General Chief Complaint: Headache Stated Complaint: Headache/Leg pain Time Seen by Provider: 07/04/20 21:56 Mode of arrival: ambulatory Limitations: no limitations - History of Present Illness Initial Comments: 20-year-old female presenting to emergency Department with chief complaint of a headache, leg pain and increased urinary frequency. Patient states like pain has been ongoing for the past 2-3 months. Patient states he feels a dull achy pain with occasional pinprick sensation that usually happens in the morning or night but goes away throughout the day whenever she is walking. Patient also reports having a headache for the past 3 days that is throughout the whole head and is not the worst headache of her life. He states it was gradual onset. No photophobia, nausea or vomiting. Patient also reports increased urinary urgency but no frequency or dysuria. Denies any vaginal symptoms. States there is a possibility for . Denies hematuria, hematochezia or melena. Denies any back pain or abdominal pain. - Related Data Previous Rx's Medication Instructions Recorded Cephalexin [Keflex] 500 mg PO BID 5 Days #10 cap 07/04/20 Allergies Allergy/AdvReac Type Severity Reaction Status Date / Time latex Allergy Intermediate Rash/Hives Verified 07/04/20 22:17 Review of Systems ROS Statement: Those systems with pertinent positive or pertinent negative responses have been documented in the HPI. ROS Other: All systems not noted in ROS Statement are negative. Past Medical History Past Medical History: No Reported History Additional Past Medical History / Comment(s): Obstetric history: First 2 pregnancies were vaginal deliveries. THis is her second and she had care with mo since the first trimester. She did have 7 weeks in the middle of her when she did not have care as she did not show up for her visits. O+, abs neg, Rub Imm, RPR NR, Hep B neg, HIV NR. normal anatomy US. GBS neg History of Any Multi-Drug Resistant Organisms: None Reported Past Surgical History: Hernia Repair, Tonsillectomy Past Anesthesia/Blood Transfusion Reactions: No Reported Reaction Past Psychological History: Anxiety, Depression Smoking Status: Never smoker Past Alcohol Use History: None Reported Past Drug Use History: None Reported - Past Family History Mother Family Medical History: Hypertension General Exam Limitations: no limitations General appearance: alert, in no apparent distress, obese Head exam: Present: atraumatic, normocephalic, normal inspection Eye exam: Present: normal appearance, PERRL, EOMI Pupils: Present: normal accommodation ENT exam: Present: normal exam, normal oropharynx, mucous membranes moist, TM's normal bilaterally, normal external ear exam Neck exam: Present: normal inspection, full ROM. Absent: tenderness, meningismus Respiratory exam: Present: normal lung sounds bilaterally. Absent: respiratory distress, wheezes, rales Cardiovascular Exam: Present: regular rate, normal rhythm, normal heart sounds. Absent: systolic murmur GI/Abdominal exam: Present: soft. Absent: distended, tenderness, guarding, rebound Extremities exam: Present: normal inspection, full ROM, normal capillary refill. Absent: tenderness, pedal edema, joint swelling, calf tenderness Back exam: Present: normal inspection, full ROM. Absent: tenderness, CVA tenderness (R), CVA tenderness (L) Neurological exam: Present: alert, oriented X3, CN II-XII intact, normal gait Psychiatric exam: Present: normal affect, normal mood Skin exam: Present: warm, dry, intact, normal color Course Vital Signs 07/04/20 21:49 Temperature 99.2 F Pulse Rate 94 Respiratory 20 Rate Blood Pressure 122/79 O2 Sat by Pulse 97 Oximetry Medical Decision Making - Medical Decision Making 20-year-old male presenting to emergency Department with a chief complaint of leg pain, headache and increased urinary frequency. Physical examination is unremarkable. Patient was in the emergency department about 2 months ago with the same chief complaint of leg pain and had a laboratory workup with no significant findings.. I suspect the leg pain along with occasional impaired sensation that is only exacerbated during nights and mornings or whenever she is not moving is related to possible restless leg syndrome. UA does reveal leukocyte esterase, moderate amounts of bacteria and white blood cells. Urine culture pending. Patient will be treated for a urinary tract infection. Patient is not . Patient was advised to obtain a relationship with a primary care physician. She was given multiple recommendations. She was also discharged with Keflex. Strict return parameters were thoroughly discussed the patient was understanding and agreeable. Case discussed with physician. - Lab Data Lab Results 07/04/20 07/04/20 Range/Units 22:21 22:21 Urine Color Yellow Urine Appearance Cloudy H (Clear) Urine pH 6.0 (5.0-8.0) Ur Specific [place] 1.026 (1.001-1.035) Urine Protein Trace H (Negative) Urine Glucose (UA) Negative (Negative) Urine Ketones Negative (Negative) Urine Blood Negative (Negative) Urine Nitrite Negative (Negative) Urine Bilirubin Negative (Negative) Urine Urobilinogen 2.0 (<2.0) mg/dL Ur Leukocyte Esterase Moderate H (Negative) Urine RBC 2 (0-5) /hpf Urine WBC 10 H (0-5) /hpf Ur Squamous Epith Cells 9 H (0-4) /hpf Urine Bacteria Moderate H (None) /hpf Hyaline Casts 1 (0-2) /lpf Urine Mucus Few H (None) /hpf Urine HCG, Qual Not Detected (Not Detectd) Disposition Clinical Impression: Urinary tract infection Disposition: HOME SELF-CARE Condition: Stable Instructions (If sedation given, give patient instructions): Restless Legs Syndrome (ED), Urinary Tract Infection in Women (DC) Additional Instructions: Take prescribed medication as directed. Follow-up with the primary care physician. Return to emergency department if symptoms worsen. Prescriptions: Cephalexin [Keflex] 500 mg PO BID 5 Days #10 cap Is patient prescribed a controlled substance at d/c from ED?: No Referrals: None,Stated [Primary Care Provider] - 1-2 days Tico Ramirez MD [STAFF PHYSICIAN] - 1-2 days Cameron Poon MD [REFERRING] - 1-2 days Capo Tan MD [REFERRING] - 1-2 days Brandon Ness MD [STAFF PHYSICIAN] - 1-2 days Tico Pavon MD [Medical Doctor] - 1-2 days Time of Disposition: 22:57
[2020-07-04 22:29] LABS: Appearance,Urine Cloudy (Clear); Bacteria,Urine Moderate /hpf; Bilirubin,Urine Negative (Negative); Blood,Urine Negative (Negative); Color,Urine Yellow; Glucose,Urine (UA) Negative (Negative); Hyaline Casts,Urine 1 /lpf (0-2); Ketones,Urine Negative (Negative); Leukocyte Esterase,Urine Moderate (Negative); Mucus,Urine Few /hpf; Nitrite,Urine Negative (Negative); Protein,Urine Trace (Negative); RBC,Urine 2 /hpf (0-5); Specific Gravity,Urine 1.026 (1.001-1.035); Squamous Epithelial Cell,Urine 9 /hpf (0-4); WBC,Urine 10 /hpf (0-5)
[2020-07-04] MEDS ORDERED: CEPHALEXIN 500 MG CAP PO STA (22:37)
== END 2020-07-04 23:02 | disposition home or self-care (01) ==
LOC: EC 21:22
DX: N39.0 Urinary tract infection, site not specified (principal); R51.9 Headache, unspecified; M79.605 Pain in left leg; M79.604 Pain in right leg; Z91.040 Latex allergy status
CPT/HCPCS: 81001; 81025; 99284

== ENCOUNTER → 2020-07-20 | Day surgery (SDC) | payer OTHER ==
[2020-07-17 15:44] VITALS: BMI 34.4
[~2020-07-20] MED LIST: ACETAMINOPHEN TAB 500 MG TAB PO STA; BUPIVACAINE (PF) 0.25% 30 ML VIAL SQ ONE; DEXAMETHASONE SOD PHOSPHATE 4 MG/ML 1 ML VIAL IV ONE; GABAPENTIN 300 MG CAP PO STA; GLYCOPYRROLATE 0.2 MG/ML 2 ML VIAL ONE; HEPARIN SODIUM,PORCINE 5,000 UNIT/ML 1 ML VIAL SQ PRN; HYDROmorphone (PF) 1 MG/ML ONE; HYDROmorphone 0.5 MG/0.5 ML SYRINGE IVP PRN; IBUPROFEN 200 MG TAB PO ONE; INDOCYANINE GREEN 25 MG VIAL IV ONE; INDOCYANINE GREEN 25 MG VIAL IV STA; KETOROLAC 15 MG/ML 1 ML VIAL ONE; LACTATED RINGERS 1,000 ML IV ONE; LACTATED RINGERS 1,000 ML IV SCH; LIDOCAINE 1% (10MG/ML) FOR IV START INTRADERMA ONE; LIDOCAINE 1% INJ 10MG/ML (20 ML MDV) ONE; MELOXICAM 7.5 MG TAB PO ONE; MIDAZOLAM 2 MG/2 ML VIAL IV PRN; MIDAZOLAM 2 MG/2 ML VIAL ONE; NEOSTIGMINE 1 MG/ML 10 ML VIAL ONE; ONDANSETRON 4 MG/2 ML VIAL IVP ONE; PROPOFOL 10 MG/ML 20 ML VIAL IV ONE; ROCURONIUM 10 MG/ML (10 ML VIAL) IV ONE; SCOPOLAMINE 1.5MG/72HR PATCH TRANSDERM ONE; SODIUM CHLORIDE 0.9% 50 ML with ceFAZolin 1,000 MG IV ONE; SUCCINYLCHOLINE CHLORIDE 100 MG/5 ML SYR IV ONE; fentaNYL (PF) 50 MCG/ML 2 ML AMP ONE
--- NOTE | 2020-07-20 06:16 | P.GSHP ---
History of Present Illness H&P Date: 07/20/20 CHIEF COMPLAINT: Cholecystitis HISTORY OF PRESENT ILLNESS: The patient is a 20-year-old female who presents with history of epigastric including right upper quadrant abdominal pain. She underwent diagnostic studies for her gallbladder. Separately her clinical picture was consistent with cholecystitis. Now she presents for surgical intervention. PAST MEDICAL HISTORY: Please see list PAST SURGICAL HISTORY: Please see list MEDICATIONS: Please see list ALLERGIES: Please see list SOCIAL HISTORY: Please see list FAMILY HISTORY: Please see list REVIEW OF ORGAN SYSTEMS: CONSTITUTIONAL: No reports of fevers or chills. HEENT: Denies any troubles with the vision or hearing. SKIN: No skin cancer. PHYSICAL EXAM: VITAL SIGNS: Afebrile vital signs stable GENERAL: Well-developed pleasant in no acute distress. HEENT: No scleral icterus. Extraocular movements grossly intact. Moist buccal mucosa. NECK: Supple without lymphadenopathy. CHEST: Unlabored respirations. Equal bilateral excursions. CARDIOVASCULAR: Regular rate regular rhythm rhythm. Distal 2+ pulses. ABDOMEN: Soft, nondistended. Tender along the epigastrium and right upper quadrant. MUSCULOSKELETAL: No clubbing, cyanosis, or edema. NEURO: Cranial nerves II to XII within normal limits. No focal or lateralizing signs. PSYCH: Alert and oriented to person, place and time. SKIN: Well-perfused good skin turgor. ASSESSMENT: 1. Epigastric and right upper quadrant abdominal pain 2. Chronic cholecystitis 3. Symptomatic gallstones. PLAN: 1. Will need a robotic cholecystectomy possible open. Benefits and risks were described. 2. Heparin for DVT prophylaxis 5000 units. 3. Antibiotic prophylaxis. Past Medical History Past Medical History: No Reported History Additional Past Medical History / Comment(s): Vaginal deliveries. History of Any Multi-Drug Resistant Organisms: None Reported Past Surgical History: Hernia Repair, Tonsillectomy Past Anesthesia/Blood Transfusion Reactions: Previous Problems w/ Anesthesia Additional Past Anesthesia/Blood Transfusion Reaction / Comment(s): Becomes very anxious when waking up after surgery. Smoking Status: Never smoker - Past Family History Mother Family Medical History: Hypertension Medications and Allergies Home Medications Medication Instructions Recorded Confirmed Type No Known Home Medications 07/17/20 07/17/20 History Allergies Allergy/AdvReac Type Severity Reaction Status Date / Time latex Allergy Intermediate Rapid Verified 07/17/20 15:24 Heart Rate
[2020-07-20 08:47] LABS: HCT 36.5 % (34.0-46.0); HGB 12.5 gm/dL (11.4-16.0); MCH 26.4 pg (25.0-35.0); MCHC 34.2 g/dL (31.0-37.0); MCV 77.2 fL (80.0-100.0); Mean Platelet Volume 6.7; Platelet Count 325 k/uL (150-450); RBC 4.73 m/uL (3.80-5.40); RDW 14.5 % (11.5-15.5); WBC 9.5 k/uL (3.8-10.6)
[2020-07-20 10:16] VITALS: TEMP 97
--- NOTE | 2020-07-20 10:50 | P.OP ---
Date of Procedure: 07/20/20 Description of Procedure: SURGEON: TATIANA ACEVES MD PREOPERATIVE DIAGNOSES: 1. Symptomatic gallstones 2. Right upper quadrant abdominal pain 3. Morbid obesity due to excess calories, BMI 47.7 POSTOPERATIVE DIAGNOSES: 1. Symptomatic gallstone 2. Right upper quadrant abdominal pain 3. Chronic cholecystitis 4. Morbid obesity due to excess calories, BMI 47.7 5. Fatty liver disease with hepatomegaly OPERATION: Robotic-assisted da Anrdes Xi laparoscopic cholecystectomy, multiport with FIREFLY ESTIMATED BLOOD LOSS: 20 mL. SPECIMENS REMOVED: Gallbladder. COMPLICATIONS: None. OPERATIVE FINDINGS: 1. Chronic cholecystitis INDICATIONS: The patient is a 20-year-old female who presents with cholecystitis. Robotic assisted laparoscopic approach was described. Benefits and risks of the procedure including but not limited to bleeding, infection, injury to the biliary tree was described. Informed consent was obtained. DESCRIPTION OF PROCEDURE: Patient was brought to the operating room, placed in supine position. After general induction, the abdomen had been prepped and draped in standard sterile fashion. The robotic da Andres XI system was primed. After a timeout protocol was performed, the patient had been prepped and draped in standard sterile fashion. The patient was injected with indocyanine green. A 5 mm 0 degrees laparoscopic trocar entry was performed along the left upper quadrant. The abdomen insufflated to 15 mmHg pressure which was tolerated well. Diagnostic laparoscopy demonstrated no injury to bowel viscera or mesentery. The liver surface was remarkable for fatty liver disease. Next, two 8 mm robotic ports were placed along the right upper abdomen. The camera 8-mm port was maintained along the epigastrium. Another 8 mm port was placed along the left upper abdominal wall after exchanging the 5 mm port. Please note that the ports were placed at least 10 to 15 cm away from the target anatomy of the gallbladder. The skin was diffusely bleeding. The robot was docked along the left lateral abdomen. The patient was repositioned in reverse Trendelenburg position. Using a grasper for arm 3, a grasper for arm 4, including hook cautery for arm 1, the robotic system was docked and primed as described. Instruments were interchanged by the equity sales assistant including hook cautery, Bovie cautery and clip appliers. I had sat at the console. Attention was brought to the infundibulum and cystic structures. The infundibulum and cystic duct were dissected free from surrounding tissues. The cystic duct was isolated. FIREFLY was used to identify the cystic artery and cystic structures. A critical view of safety was obtained. Large PLASTIC clips were used throughout the entire case. Using a clip food service sales representatives, 2 clips were placed at the junction of the infundibulum and cystic duct. The cystic duct was divided between clips. Next, the cystic artery was similarly clipped and cauterized. Electro-Bovie cautery was used to remove the gallbladder from the hepatic fossa. Hemostasis was checked and found to be adequate. The robot was undocked. I re-scrubbed into the case. Using a 10 mm Endo Catch bag via the left upper quadrant incision, the specimen was removed from the abdominal cavity. All pneumoperitoneum instruments were evacuated from the abdominal cavity. The incisions were reapproximated using 4-0 Monocryl in an interrupted subcuticular fashion. Fascial defects were less than 8 mm in size. Please note along the trocar sites, local anesthetic was placed as a field block prior to insertion of all instruments. Liquid glue was applied to the skin. At the end of the procedure needle, sponge, and instrument count had been verified correct by the surgical aides teacher. The patient was transferred to postanesthesia care unit in stable condition. Intraoperative films were shared with the patient's family. Plan - Discharge Summary Discharge Rx Participant: Yes New Discharge Prescriptions: New Ibuprofen 800 mg PO Q8HR PRN #30 tablet PRN Reason: Pain Acetaminophen Tab [Tylenol Tab] 1,000 mg PO Q6HR PRN #30 tablet PRN Reason: Pain Discharge Medication List Acetaminophen Tab [Tylenol Tab] 1,000 mg PO Q6HR PRN #30 tablet 07/20/20 [Rx] Ibuprofen 800 mg PO Q8HR PRN #30 tablet 07/20/20 [Rx] Follow up Appointment(s)/Referral(s): Tatiana Aceves MD [STAFF PHYSICIAN] - 07/24/20 Patient Instructions/Handouts: *[facility] - Laparoscopic Cholecystectomy Discharge Instructions, *[facility] - (Anesthesia) Discharge Instructions Outpatient Surgery, *[facility] - Scopalamine Patch Instructions, Low Fat Diet (DC), *[facility] - Managing Your Pain After Surgery Without Opioids Activity/Diet/Wound Care/Special Instructions: Recommend low-fat diet for the next 2 days. No lifting over 10 pounds in 2 weeks until Aug 03. December shower. No bath tub soaks for two weeks until Aug 03. Diet as tolerated. Use Tylenol and ibuprofen or Aleve scheduled for the next 24-48 hours for best pain relief. Use ice along incisions for the today to prevent swelling. Discharge Disposition: HOME SELF-CARE
[2020-07-20 11:31] VITALS: RESP 20
[2020-07-20 11:56] VITALS: BP 108/70; PULSE 66
== END | disposition home or self-care (01) ==
LOC: OR 07:18
PROVIDERS: ATTEND Surgery Plastic and Reconstructive Surgery
DX: K80.10 Calculus of gallbladder with chronic cholecystitis without obstruction (principal); K76.0 Fatty (change of) liver, not elsewhere classified; E66.01 Morbid (severe) obesity due to excess calories; Z68.42 Body mass index [BMI] 45.0-49.9, adult; F41.9 Anxiety disorder, unspecified; Z90.89 Acquired absence of other organs; Z82.49 Family history of ischemic heart disease and other diseases of the circulatory system; Z91.040 Latex allergy status; Z98.890 Other specified postprocedural states
CPT/HCPCS: 81025; 88304; 85027; 47562; J2250; J1644; J1100; J2710; J0690 ×2; J2405; J2001; J3010; J1170; J1885; J0330; J2704

== ENCOUNTER 2021-05-31 06:03 | Inpatient (IN) | payer OTHER ==
[2021-05-31] MEDS ORDERED: METHYLERGONOVINE 0.2 MG/ML 1 ML AMP IM PRN (06:30)
[2021-05-31] MEDS ORDERED: OXYTOCIN 30 UNITS/500 ML NS 30 UNIT in SALINE 1 500ML.BAG IV SCH (06:30)
[2021-05-31] MEDS ORDERED: OXYTOCIN 10 UNIT/ML 1 ML VIAL IM PRN (06:30)
[2021-05-31] MEDS ORDERED: CARBOPROST TROMETHAMINE 250 MCG/ML 1 ML AMP IM PRN (06:30)
[2021-05-31] MEDS ORDERED: TERBUTALINE 1 MG/ML VIAL SQ PRN (06:30)
[2021-05-31] MEDS ORDERED: LIDOCAINE 0.5% (PF) 5 MG/ML (50 ML SDV) SQ PRN (06:30)
[2021-05-31] MEDS: LACTATED RINGERS 1,000 ML IV SCH ×2 (06:49→11:10)
[2021-05-31 06:55] LABS: Basophils % (A) 0 %; Eosinophils # (A) 0.2 k/uL (0-0.7); Eosinophils % (A) 1 %; HCT 33.3 % (34.0-46.0); HGB 11.6 gm/dL (11.4-16.0); Lymphocytes # (A) 1.7 k/uL (1.0-4.8); Lymphocytes % (A) 15 %; MCHC 34.8 g/dL (31.0-37.0); MCV 77.6 fL (80.0-100.0); Mean Platelet Volume 7.9; Microcytosis Slight; Monocytes # (A) 0.5 k/uL (0-1.0); Monocytes % (A) 4 %; Neutrophils # (A) 8.8 k/uL (1.3-7.7); Neutrophils % (A) 78 %; Platelet Count 359 k/uL (150-450); RBC 4.29 m/uL (3.80-5.40); RDW 15.6 % (11.5-15.5); WBC 11.3 k/uL (3.8-10.6)
--- NOTE | 2021-05-31 08:04 | P.HPOB ---
History of Present Illness H&P Date: 05/31/21 Chief Complaint: induction of labor 21 year old at 39 weeks 4 days presents for induction of labor. Her cervix is 2/70/-2 and she is robin irregularly. heart tones 140 with moderate variability and reactive. Review of Systems All systems: negative Constitutional: Denies chills, Denies fever Eyes: denies blurred vision, denies pain Ears, nose, mouth and throat: Denies headache, Denies sore throat Cardiovascular: Denies chest pain, Denies shortness of breath Respiratory: Denies cough Gastrointestinal: Denies abdominal pain, Denies diarrhea, Denies nausea, Denies vomiting Genitourinary: Denies dysuria, Denies hematuria Musculoskeletal: Denies myalgias Integumentary: Denies pruritus, Denies rash Neurological: Denies numbness, Denies weakness Psychiatric: Denies anxiety, Denies depression Endocrine: Denies fatigue, Denies weight change Past Medical History Past Medical History: No Reported History Additional Past Medical History / Comment(s): Obstetric history: She has had 3 previous vaginal deliveries. O+, abs neg, Rub Imm, RPR NR, Hep B neg, HIV NR. normal anatomy US. History of Any Multi-Drug Resistant Organisms: None Reported Past Surgical History: Hernia Repair, Tonsillectomy Past Anesthesia/Blood Transfusion Reactions: No Reported Reaction Past Psychological History: Anxiety, Depression Smoking Status: Never smoker Past Alcohol Use History: None Reported Past Drug Use History: None Reported - Past Family History Mother Family Medical History: Hypertension Medications and Allergies Allergies Allergy/AdvReac Type Severity Reaction Status Date / Time latex Allergy Intermediate Rapid Verified 05/31/21 06:29 Heart Rate Exam Osteopathic Statement: *. No significant issues noted on an osteopathic str uctural exam other than those noted in the History and Physical/Consult. Vital Signs Temp Pulse Resp BP Pulse Ox 05/31/21 06:10 98.0 F 99 18 132/74 95 Intake and Output 05/30/21 05/31/21 05/31/21 22:59 06:59 14:59 Other: Weight 129.274 kg Heart: Regular rate and rhythm Lungs: Clear to auscultation bilaterally Abdomen: Soft, nontender Extremities: Negative Homans sign Results Result Diagrams: 05/31/21 06:35 Abnormal Lab Results - Last 24 Hours (Table) 05/31/21 Range/Units 06:35 WBC 11.3 H (3.8-10.6) k/uL Hct 33.3 L (34.0-46.0) % MCV 77.6 L (80.0-100.0) fL RDW 15.6 H (11.5-15.5) % Neutrophils # 8.8 H (1.3-7.7) k/uL Assessment and Plan (1) Elective induction of labor planned Current Visit: Yes Status: Acute Code(s): PLS9952 - SNOMED Code(s): 211437793 Plan: 1. induction of labor with amniotomy and pitocin 2. anticipate normal vaginal delivery
[2021-05-31] MEDS ORDERED: SODIUM CHLORIDE 0.9% 100 ML BAG ONE (10:43)
[2021-05-31] MEDS ORDERED: fentaNYL (PF) 50 MCG/ML 5 ML AMP ONE (10:43)
[2021-05-31] MEDS ORDERED: ROPIVACAINE 5MG/ML 20ML VIAL ONE (10:43)
[2021-05-31] MEDS ORDERED: SIMETHICONE 80 MG CHEWABLE PO PRN (17:30)
[2021-05-31] MEDS ORDERED: ACETAMINOPHEN TAB 325 MG TAB PO PRN (17:30)
[2021-05-31] MEDS ORDERED: diphenhydrAMINE 50 MG CAP PO PRN (17:30)
[2021-05-31] MEDS ORDERED: diphenhydrAMINE 25 MG CAP PO PRN (17:30)
[2021-05-31] MEDS ORDERED: BENZOCAINE/MENTHOL SPRAY 1 GM/SPRAY AEROSOL TOPICAL PRN (17:30)
[2021-05-31] MEDS ORDERED: ZOLPIDEM 5 MG TAB PO PRN (17:30)
[2021-05-31] MEDS: SENNOSIDES-DOCUSATE SODIUM 1 EACH TAB PO SCH (20:22)
--- NOTE | 2021-05-31 22:43 | P.PROBDLV ---
Vaginal Delivery Note - . Vaginal Delivery Note: 21 year old at 39 weeks 4 days presents for induction of labor. Her cervix is 2/70/-2 and she is robin irregularly. heart tones 140 with moderate variability and reactive.Pitocin was started when patient arrived. Amniotomy performed at 7:43 AM and clear fluid noted. When she was uncomfortable she did get an epidural. Her cervix is completely dilated a little after 1400. She pushed, and delivered a viable female infant over intact perineum under epidural anesthesia at 1412. Head delivered OA, anterior shoulder delivered gentle downward guidance for by posterior shoulder and rest of body. Nose and mouth bulb suctioned, cord clamped and cut, placed mother's abdomen. Apgars 9, 9, weight 7 pounds. Placenta delivered spontaneously, intact with three-vessel cord at 1417. Vagina, cervix, perineum inspected. No lacerations noted. Estimated blood loss 100 mL. Mother and baby in stable condition. All
[2021-05-31] MEDS: IBUPROFEN 600 MG TAB PO PRN (23:49)
[2021-06-01 04:36] LABS: Basophils % (A) 0 %; Eosinophils # (A) 0.2 k/uL (0-0.7); Eosinophils % (A) 2 %; HCT 31.6 % (34.0-46.0); HGB 10.6 gm/dL (11.4-16.0); Lymphocytes # (A) 2.4 k/uL (1.0-4.8); Lymphocytes % (A) 22 %; MCH 26.3 pg (25.0-35.0); MCHC 33.7 g/dL (31.0-37.0); Mean Platelet Volume 8.1; Monocytes # (A) 0.5 k/uL (0-1.0); Monocytes % (A) 4 %; Neutrophils # (A) 7.7 k/uL (1.3-7.7); Neutrophils % (A) 71 %; Platelet Count 302 k/uL (150-450); RBC 4.05 m/uL (3.80-5.40); RDW 15.6 % (11.5-15.5); WBC 10.9 k/uL (3.8-10.6)
[2021-06-01 04:47] LABS: ALT 10 U/L (4-34); AST 15 U/L (14-36); African American GFR (CKD) >90 (>60 ml/min/1.73 sqM); Blood Urea Nitrogen 14 mg/dL (7-17); LDH 446 U/L (313-618); Magnesium 1.7 mg/dL (1.6-2.3); Non-African American GFR(CKD) >90 (>60 ml/min/1.73 sqM); Uric Acid 6.8 mg/dL (3.7-7.4)
[2021-06-01 05:01] LABS: INR 0.9 (<1.2); Prothrombin Time 9.4 sec (9.0-12.0)
[2021-06-01] MEDS ORDERED: LABETALOL 200 MG TAB PO STA (05:24)
[2021-06-01] MEDS: IBUPROFEN 600 MG TAB PO PRN (06:34)
[2021-06-01] MEDS: SENNOSIDES-DOCUSATE SODIUM 1 EACH TAB PO SCH (08:30)
[2021-06-01 08:45] LABS: Basophils % (A) 0 %; Eosinophils # (A) 0.1 k/uL (0-0.7); Eosinophils % (A) 1 %; HCT 32.7 % (34.0-46.0); HGB 10.6 gm/dL (11.4-16.0); Lymphocytes # (A) 1.7 k/uL (1.0-4.8); Lymphocytes % (A) 15 %; MCH 26.3 pg (25.0-35.0); MCHC 32.3 g/dL (31.0-37.0); MCV 81.3 fL (80.0-100.0); Mean Platelet Volume 7.9; Monocytes # (A) 0.4 k/uL (0-1.0); Monocytes % (A) 4 %; Neutrophils # (A) 9.4 k/uL (1.3-7.7); Neutrophils % (A) 80 %; Platelet Count 269 k/uL (150-450); RBC 4.02 m/uL (3.80-5.40); RDW 15.3 % (11.5-15.5); WBC 11.8 k/uL (3.8-10.6)
--- NOTE | 2021-06-01 09:44 | P.PNOBGVD ---
Subjective - Subjective Principal diagnosis: Status post normal vaginal delivery day #1 Interval history: Patient seen and examined. She denies nausea, vomiting, chest pain, shortness of breath or any calf pain. She also denies any headache or right upper quadrant pain. Patient had a few elevated blood pressures last night and got very anxious which started to increase her blood pressure even more. I did give her 200 mg of labetalol very early this morning to help with his blood pressure elevations. Preeclamptic labs were all within normal limits. Patient does not have a previous history of any hypertension. Preeclamptic and signs and symptoms were reviewed with the patient. Blood pressures will be monitored closely. Objective - Latest Vital Signs Latest vital signs: Vital Signs Temp Pulse Resp BP Pulse Ox 06/01/21 08:00 97.7 F 78 16 138/85 06/01/21 06:41 79 16 128/83 06/01/21 05:15 180/140 06/01/21 05:06 155/103 06/01/21 05:04 85 170/130 06/01/21 04:49 87 148/100 06/01/21 04:34 94 147/95 06/01/21 04:19 83 142/95 06/01/21 04:05 97.8 F 77 16 165/105 06/01/21 04:04 96 145/99 06/01/21 04:00 148/102 06/01/21 03:53 80 146/96 06/01/21 00:25 86 16 123/83 06/01/21 00:10 85 16 146/102 98 06/01/21 00:00 85 05/31/21 23:49 98.0 F 68 16 153/103 05/31/21 20:00 97.9 F 79 16 134/95 05/31/21 16:20 84 16 149/76 05/31/21 15:50 90 16 124/58 05/31/21 15:20 104 H 16 149/69 05/31/21 15:05 90 16 149/64 99 05/31/21 14:50 96 16 155/72 05/31/21 14:35 91 16 107/55 05/31/21 14:20 96.9 F L 89 16 138/71 100 Intake and Output 05/31/21 06/01/21 06/01/21 22:59 06:59 14:59 Output Total 150 Balance -150 Output: Estimated Blood Loss 150 Other: # Voids 1 1 - Exam Lungs: bilateral: normal Chest: Normal S1, Normal S2 Extremities: Present: normal Abdomen: Present: normal appearance, soft Uterus: Present: normal, firm - Labs Labs: Abnormal Lab Results - Last 24 Hours (Table) 06/01/21 06/01/21 Range/Units 04:03 08:02 WBC 10.9 H 11.8 H (3.8-10.6) k/uL Hgb 10.6 L 10.6 L (11.4-16.0) gm/dL Hct 31.6 L 32.7 L (34.0-46.0) % MCV 78.0 L (80.0-100.0) fL RDW 15.6 H (11.5-15.5) % Neutrophils # 9.4 H (1.3-7.7) k/uL Assessment and Plan (1) Elective induction of labor planned Current Visit: Yes Status: Resolved Code(s): DXI2602 - SNOMED Code(s): 748797291 (2) Normal vaginal delivery Current Visit: No Status: Acute Code(s): O80 - ENCOUNTER FOR FULL-TERM UNCOMPLICATED DELIVERY SNOMED Code(s): 45236113 Plan: 1. cont to monitor BP 2. pp care
[2021-06-01] MEDS: LABETALOL 100 MG TAB PO SCH (18:17)
[2021-06-02] MEDS: SENNOSIDES-DOCUSATE SODIUM 1 EACH TAB PO SCH ×3 (03:24→19:55)
[2021-06-02] MEDS: LABETALOL 100 MG TAB PO SCH ×2 (08:01→20:55)
--- NOTE | 2021-06-02 08:54 | P.PNOBGVD ---
Subjective - Subjective Principal diagnosis: Status post total vaginal delivery day #2 Interval history: Patient seen and examined. Her blood pressures yesterday did start to rise 140s 150s over 90s to 100s 5 placed her on labetalol 100 mg twice a day. This kept her blood pressures stable through the night of 130s over 80s, but since she is due for the medicine this morning her blood pressure did increase to 150/100. I will recheck it 1 hour after her medicines given. She denies headache, blurred vision or spots in her vision or any right upper quadrant pain. Patient reports: Reports appetite normal, Reports voiding normally, Reports pain well controlled, Reports ambulating normally : doing well Objective - Latest Vital Signs Latest vital signs: Vital Signs Temp Pulse Resp BP BP Pulse Ox 06/02/21 00:00 97.8 F 75 18 127/71 99 06/01/21 22:00 97.8 F 78 19 136/82 100 06/01/21 16:00 98.2 F 91 16 139/87 06/01/21 14:00 91 151/85 06/01/21 12:00 98 F 70 16 136/91 06/01/21 10:00 85 140/92 Intake and Output 06/01/21 06/02/21 06/02/21 22:59 06:59 14:59 Intake Total 960 Balance 960 Intake: Oral 960 - Exam Lungs: bilateral: normal Chest: Normal S1, Normal S2 Extremities: Present: normal Abdomen: Present: normal appearance, soft Uterus: Present: normal, firm Assessment and Plan (1) Elective induction of labor planned Current Visit: Yes Status: Resolved Code(s): AZS0930 - SNOMED Code(s): 909057796 (2) Normal vaginal delivery Current Visit: No Status: Acute Code(s): O80 - ENCOUNTER FOR FULL-TERM UNCOMPLICATED DELIVERY SNOMED Code(s): 92281369 (3) Gestational hypertension without significant proteinuria, Current Visit: Yes Status: Acute Code(s): O13.5 - GESTATNL HTN WITHOUT SIGNIFICANT PROTEIN, COMP THE PUERP SNOMED Code(s): 97333979 Plan: 1. Continue labetalol 100 mg twice daily 2. Continue to monitor blood pressures
--- NOTE | 2021-06-02 14:20 | US ---
EXAMINATION TYPE: US venous doppler duplex UE BI DATE OF EXAM: 06/02/2021 COMPARISON: NONE CLINICAL HISTORY: pain in arms. pain bilateral arms SIDE PERFORMED: bilateral +technical limitations due to patient's body habitus Right Arm: no evidence of DVT as visualized Left Arm: no evidence of DVT as visualized IMPRESSION: No evidence of deep vein thrombosis in the right and left arm.
--- NOTE | 2021-06-02 14:20 | US ---
EXAMINATION TYPE: US venous doppler duplex LE DATE OF EXAM: 06/02/2021 1:51 PM COMPARISON: NONE CLINICAL HISTORY: pain in legs. pain bilateral legs SIDE PERFORMED: bilateral TECHNIQUE: The lower extremity deep venous system is examined utilizing real time linear array sonog robert with graded compression, doppler sonography and color-flow sonography. VESSELS IMAGED: Common Femoral Vein Deep Femoral Vein Greater Saphenous Vein * Femoral Vein Popliteal Vein Small Saphenous Vein * Proximal Calf Veins (* superficial vessels) Right Leg: no evidence of DVT Left Leg: no evidence of DVT IMPRESSION: No evidence of deep vein thrombosis in both legs.
[2021-06-03] MEDS ORDERED: LABETALOL 100 MG TAB PO ONE (00:09)
[2021-06-03] MEDS ORDERED: MAGNESIUM SULFATE-WATER PMX 4 GM in WATER FOR INJECTION 1 100ML.BAG IVPB ONE (05:38)
[2021-06-03] MEDS ORDERED: CALCIUM GLUCONATE 1 GM/10 ML VIAL IV PRN (05:38)
[2021-06-03 06:38] LABS: ALT 16 U/L (4-34); AST 25 U/L (14-36); African American GFR (CKD) >90 (>60 ml/min/1.73 sqM); Blood Urea Nitrogen 13 mg/dL (7-17); LDH 694 U/L (313-618); Magnesium 1.9 mg/dL (1.6-2.3); Non-African American GFR(CKD) >90 (>60 ml/min/1.73 sqM); Uric Acid 8.5 mg/dL (3.7-7.4)
[2021-06-03 06:46] LABS: INR 0.8 (<1.2); Prothrombin Time 9.3 sec (9.0-12.0)
[2021-06-03] MEDS: MAGNESIUM SULFATE-WATER PMX 20 GM in WATER FOR INJECTION 1 500ML.BAG IV SCH ×2 (06:51→16:44)
[2021-06-03 06:54] LABS: Appearance,Urine Clear (Clear); Bilirubin,Urine Negative (Negative); Blood,Urine Negative (Negative); Color,Urine Light Yellow; Glucose,Urine (UA) Negative (Negative); Ketones,Urine Negative (Negative); Leukocyte Esterase,Urine Negative (Negative); Nitrite,Urine Negative (Negative); PH, Urine 5.5 (5.0-8.0); Protein,Urine Negative (Negative); Specific Gravity,Urine 1.012 (1.001-1.035); Urobilinogen,Urine <2.0 mg/dL (<2.0)
[2021-06-03 06:59] LABS: Partial Thromboplastin Time 20.6 sec (22.0-30.0)
[2021-06-03 07:02] LABS: Creatinine,Urine Random 55.4 mg/dL; Protein/Creatinine Ratio,Urine 0.361
[2021-06-03 07:06] LABS: Basophils % (A) 0 %; Eosinophils # (A) 0.3 k/uL (0-0.7); Eosinophils % (A) 3 %; HCT 35.5 % (34.0-46.0); Lymphocytes # (A) 1.8 k/uL (1.0-4.8); Lymphocytes % (A) 18 %; MCH 26.8 pg (25.0-35.0); MCHC 33.8 g/dL (31.0-37.0); MCV 79.3 fL (80.0-100.0); Mean Platelet Volume 8.4; Monocytes # (A) 0.4 k/uL (0-1.0); Monocytes % (A) 4 %; Neutrophils # (A) 7.4 k/uL (1.3-7.7); Neutrophils % (A) 74 %; Platelet Count 320 k/uL (150-450); RBC 4.47 m/uL (3.80-5.40); RDW 15.8 % (11.5-15.5)
[2021-06-03] MEDS ORDERED: LACTATED RINGERS 1,000 ML IV SCH (07:45)
--- NOTE | 2021-06-03 08:22 | P.PNOBGVD ---
Subjective - Subjective Principal diagnosis: S/P NVD PPD #3 Interval history: since blood pressures did rise again despite labetalol 100 mg twice a day. The blood pressures were different on either arm so Doppler studies were done on arms and legs which were negative. EKG showed normal sinus rhythm. Preeclamptic labs were repeated and there were some abnormal findings. Patient also started to have right upper quadrant discomfort. I placed her on magnesium sulfate this morning. Her blood pressures are getting better and she is diuresing well. I had a long conversation with the patient about what preeclampsia is, that she presented as an atypical preeclampsia and the treatment and outcomes of preeclampsia. Patient reports: Reports voiding normally, Reports pain well controlled : doing well Objective - Latest Vital Signs Latest vital signs: Vital Signs Temp Pulse Resp BP BP BP Pulse Ox 06/03/21 07:15 79 16 140/87 98 06/03/21 06:59 80 16 137/83 97 06/03/21 06:45 79 16 130/86 97 06/03/21 06:33 80 06/03/21 06:30 80 16 146/84 97 06/03/21 05:40 98.4 F 88 16 161/104 06/03/21 04:00 98.5 F 77 16 153/95 99 06/03/21 01:58 98.2 F 75 16 153/62 99 06/03/21 00:00 98.3 F 87 16 159/111 06/02/21 22:00 149/97 06/02/21 19:53 98.3 F 88 16 151/99 99 06/02/21 18:00 91 16 148/94 06/02/21 16:00 98.0 F 78 16 152/92 06/02/21 14:00 98.4 F 106 H 16 146/98 06/02/21 13:00 102 H 16 148/93 163/108 06/02/21 11:00 99 16 124/86 142/86 06/02/21 10:00 98 16 122/83 141/92 06/02/21 09:00 138/89 152/101 Intake and Output 06/02/21 06/03/21 06/03/21 22:59 06:59 14:59 Output Total 520 200 Balance -520 -200 Output: Urine 520 200 Uretheral (Lopez) 260 Other: Voiding Method Indwelling Catheter # Voids 1 1 - Exam Lungs: bilateral: normal Chest: Normal S1, Normal S2 Extremities: Present: normal Abdomen: Present: normal appearance, soft Uterus: Present: normal, firm - Labs Labs: Abnormal Lab Results - Last 24 Hours (Table) 06/03/21 06/03/21 06/03/21 Range/Units 06:08 06:08 06:08 MCV 79.3 L (80.0-100.0) fL RDW 15.8 H (11.5-15.5) % APTT 20.6 L (22.0-30.0) sec Uric Acid 8.5 H (3.7-7.4) mg/dL Lactate Dehydrogenase 694 H (313-618) U/L U Random Total Protein (<12) mg/dL 06/03/21 Range/Units 06:36 MCV (80.0-100.0) fL RDW (11.5-15.5) % APTT (22.0-30.0) sec Uric Acid (3.7-7.4) mg/dL Lactate Dehydrogenase (313-618) U/L U Random Total Protein 20 H (<12) mg/dL Assessment and Plan (1) Elective induction of labor planned Current Visit: Yes Status: Resolved Code(s): QDB3597 - SNOMED Code(s): 020792272 (2) Normal vaginal delivery Current Visit: No Status: Acute Code(s): O80 - ENCOUNTER FOR FULL-TERM UNCOMPLICATED DELIVERY SNOMED Code(s): 34063950 (3) Severe pre-eclampsia Current Visit: Yes Status: Acute Code(s): O14.10 - SEVERE PRE-ECLAMPSIA, UNSPECIFIED TRIMESTER SNOMED Code(s): 02896186 Plan: 1. cont mag sulfate until 24 hours 2. cont labetalol 100mg bid 3. seizure precautions.
[2021-06-03] MEDS: LABETALOL 100 MG TAB PO SCH ×2 (09:03→21:06)
[2021-06-03] MEDS: SENNOSIDES-DOCUSATE SODIUM 1 EACH TAB PO SCH ×2 (10:20→19:28)
[2021-06-03] MEDS: IBUPROFEN 600 MG TAB PO PRN (15:15)
[2021-06-04] MEDS: MAGNESIUM SULFATE-WATER PMX 20 GM in WATER FOR INJECTION 1 500ML.BAG IV SCH (03:10)
[2021-06-04 05:15] VITALS: RESP 16
--- NOTE | 2021-06-04 06:00 | P.PNOBGVD ---
Subjective - Subjective Patient reports: Reports appetite normal, Reports voiding normally, Reports pain well controlled, Reports ambulating normally : doing well Objective - Latest Vital Signs Latest vital signs: Vital Signs Temp Pulse Resp BP BP Pulse Ox 06/04/21 05:00 85 16 135/82 06/04/21 04:00 72 14 143/85 98 06/04/21 03:00 76 16 128/84 97 06/04/21 02:00 74 14 119/80 98 06/04/21 01:00 74 16 118/80 99 06/04/21 00:00 97.8 F 73 16 111/76 99 06/03/21 23:00 71 16 125/84 06/03/21 22:00 79 16 132/85 98 06/03/21 21:00 82 16 140/87 06/03/21 20:00 16 130/83 06/03/21 19:15 98.2 F 78 14 143/88 98 06/03/21 18:56 81 16 135/85 100 06/03/21 18:00 98.4 F 72 18 138/92 100 06/03/21 17:00 76 16 134/83 100 06/03/21 16:00 98.2 F 51 L 16 136/84 99 06/03/21 15:00 84 18 140/91 99 06/03/21 14:00 98.0 F 86 16 123/75 97 06/03/21 13:00 79 16 124/83 96 06/03/21 12:00 98.4 F 61 16 123/84 96 06/03/21 11:00 89 16 135/87 97 06/03/21 10:00 81 16 134/85 98 06/03/21 09:00 86 16 142/92 97 06/03/21 08:00 98.4 F 84 16 138/88 98 06/03/21 07:45 92 16 144/91 98 06/03/21 07:30 85 16 156/103 97 06/03/21 07:15 79 16 140/87 98 06/03/21 06:59 80 16 137/83 97 06/03/21 06:45 79 16 130/86 97 06/03/21 06:33 80 06/03/21 06:30 80 16 146/84 97 Intake and Output 06/03/21 06/03/21 06/04/21 14:59 22:59 06:59 Intake Total 490 4163.579 4578.333 Output Total 1625 1650 850 Balance -1135 -525.833 249.333 Intake: Intake, IV Titration 490 3891.453 6724.333 Amount Lactated Ringers 1,000 ml 140 180 140 @ 20 mls/hr IV .Q24H NIKO Rx#:[id number] Magnesium Sulfate-Water 350 544.167 609.333 Pmx 20 gm In Water For Injection 1 500ml.bag @ 2 GM/HR 50 mls/hr IV .Q10H NIKO Rx#:[id number] Magnesium Sulfate-Water 400 350 Pmx 4 gm In Water For Injection 1 100ml.bag @ 300 mls/hr IVPB ONCE ONE Rx#:[id number] Output: Urine 1625 1650 850 Uretheral (Lopez) 250 Other: Voiding Method Indwelling Catheter Indwelling Catheter # Voids 1 - Exam Lungs: bilateral: normal Chest: Normal S1, Normal S2 Extremities: Present: normal Abdomen: Present: normal appearance, soft Uterus: Present: normal, firm - Labs Labs: Abnormal Lab Results - Last 24 Hours (Table) 06/03/21 06/03/21 06/03/21 Range/Units 06:08 06:08 06:08 MCV 79.3 L (80.0-100.0) fL RDW 15.8 H (11.5-15.5) % APTT 20.6 L (22.0-30.0) sec Uric Acid 8.5 H (3.7-7.4) mg/dL Lactate Dehydrogenase 694 H (313-618) U/L U Random Total Protein (<12) mg/dL 06/03/21 Range/Units 06:36 MCV (80.0-100.0) fL RDW (11.5-15.5) % APTT (22.0-30.0) sec Uric Acid (3.7-7.4) mg/dL Lactate Dehydrogenase (313-618) U/L U Random Total Protein 20 H (<12) mg/dL Assessment and Plan Assessment: day #4. Please see dictated H&P, delivery note, and progress notes per Dr. Solis on this patient's admission and course. Patient developed preeclampsia and was placed on magnesium sulfate and labetalol. Patient's blood pressures have responded well and the magnesium will be discontinued this morning. We'll continue on labetalol 100 twice a day. If her blood pressures remain normal throughout the morning she can go home after lunch. I've asked patient see Dr. Solis on Thursday for follow-up blood pressure check. At this point she appears to be stable for discharge. Her blood pressures increase we'll continue inpatient hospitalization and blood pressure management. (1) Gestational hypertension without significant proteinuria, Current Visit: Yes Status: Acute Code(s): O13.5 - GESTATNL HTN WITHOUT SIGNIFICANT PROTEIN, COMP THE PUERP SNOMED Code(s): 56833535
[2021-06-04] MEDS: LABETALOL 100 MG TAB PO SCH (08:36)
[2021-06-04 09:14] VITALS: TEMP 98.5
[2021-06-04 11:20] VITALS: BP 148/95; PULSE 104
[2021-06-04] MEDS: SENNOSIDES-DOCUSATE SODIUM 1 EACH TAB PO SCH (11:21)
== END 2021-06-04 12:55 | disposition home or self-care (01) | DRG 807 ==
LOC: 4FBP 06:03
PROVIDERS: ADMIT Obstetrics & Gynecology; ATTEND Obstetrics & Gynecology
PROC: 10E0XZZ Delivery of Products of Conception, External Approach (ICD-10-PCS; principal; 2021-05-31)
PROC: 3E033VJ Introduction of Other Hormone into Peripheral Vein, Percutaneous Approach (ICD-10-PCS; 2021-05-31)
PROC: 10907ZC Drainage of Amniotic Fluid, Therapeutic from Products of Conception, Via Natural or Artificial Opening (ICD-10-PCS; 2021-05-31)
DX: O14.14 Severe pre-eclampsia complicating childbirth (principal); Z37.0 Single live birth; O99.344 Other mental disorders complicating childbirth; Z3A.39 39 weeks gestation of pregnancy; Z82.49 Family history of ischemic heart disease and other diseases of the circulatory system; F41.9 Anxiety disorder, unspecified; F32.9 Major depressive disorder, single episode, unspecified; O14.95 Unspecified pre-eclampsia, complicating the puerperium
CPT/HCPCS: 81003; 82565; 82570; 83615; 83735; 84156; 84450; 84460; 84520; 84550; 85025; 85384; 85610; 85730; 86850; 86900; 86901; 93005; 93970

== ENCOUNTER 2021-07-10 15:58 | Emergency (ER) | payer OTHER ==
[2021-07-10 16:30] VITALS: BP 117/79; TEMP 98.8
--- NOTE | 2021-07-10 17:33 | ED ---
General Adult HPI - General Chief complaint: Abdominal Pain Stated complaint: Abd Pain Time Seen by Provider: 07/10/21 16:55 Source: patient, RN notes reviewed, old records reviewed Mode of arrival: ambulatory Limitations: no limitations - History of Present Illness Initial comments: 21-year-old female presenting with upper abdominal pain. Pain is been present for the past one week. Patient denies vomiting. She initially had diarrhea followed by constipation and now has abnormal stool caliber. She had a previous cholecystectomy. She's had no fever. Pain is both on the right side in the left side. She states she has had some belching as well as flatus. - Related Data Home Medications Medication Instructions Recorded Confirmed No Known Home Medications 07/10/21 07/10/21 Allergies Allergy/AdvReac Type Severity Reaction Status Date / Time latex Allergy Intermediate Rapid Verified 07/10/21 18:11 Heart Rate Review of Systems ROS Statement: Those systems with pertinent positive or pertinent negative responses have been documented in the HPI. ROS Other: All systems not noted in ROS Statement are negative. Past Medical History Past Medical History: No Reported History Additional Past Medical History / Comment(s): Obstetric history: She has had 3 previous vaginal deliveries. O+, abs neg, Rub Imm, RPR NR, Hep B neg, HIV NR. normal anatomy US. History of Any Multi-Drug Resistant Organisms: None Reported Past Surgical History: Cholecystectomy, Hernia Repair, Tonsillectomy Past Anesthesia/Blood Transfusion Reactions: No Reported Reaction Past Psychological History: Anxiety, Depression Smoking Status: Never smoker Past Alcohol Use History: None Reported Past Drug Use History: None Reported - Past Family History Mother Family Medical History: Hypertension General Exam Limitations: no limitations General appearance: alert, in no apparent distress Head exam: Present: atraumatic, normocephalic Eye exam: Present: normal appearance, PERRL ENT exam: Present: normal exam Neck exam: Present: normal inspection. Absent: tenderness, meningismus Respiratory exam: Present: normal lung sounds bilaterally. Absent: respiratory distress, wheezes Cardiovascular Exam: Present: regular rate, normal rhythm GI/Abdominal exam: Present: soft, tenderness. Absent: distended, guarding, rebound Extremities exam: Present: normal inspection, normal capillary refill. Absent: pedal edema Neurological exam: Present: alert, oriented X3, CN II-XII intact. Absent: motor sensory deficit Psychiatric exam: Present: normal affect, normal mood Skin exam: Present: warm, dry, intact. Absent: cyanosis, diaphoretic Course Vital Signs 07/10/21 16:27 Temperature 98.8 F Pulse Rate 97 Respiratory 20 Rate Blood Pressure 117/79 O2 Sat by Pulse 98 Oximetry Medical Decision Making - Medical Decision Making 21-year-old female presenting for evaluation of upper abdominal pain. Patient has no lower abdominal pain or tenderness. No urinary symptoms. She does have bloody urine but is currently on her menstrual cycle. She is not . Her laboratories testing including CBC and CMP is unremarkable. Her CT is negative for any acute findings. Patient does admit to poor diet. She is instructed on an improved healthy diet. Return parameters were discussed. She will follow-up with her primary care physician. - Lab Data Result diagrams: 07/10/21 17:30 07/10/21 17:30 Lab Results 07/10/21 07/10/21 07/10/21 Range/Units 17:18 17:18 17:30 WBC 9.9 (3.8-10.6) k/uL RBC 4.89 (3.80-5.40) m/uL Hgb 12.5 (11.4-16.0) gm/dL Hct 39.4 (34.0-46.0) % MCV 80.6 (80.0-100.0) fL MCH 25.5 (25.0-35.0) pg MCHC 31.7 (31.0-37.0) g/dL RDW 15.1 (11.5-15.5) % Plt Count 366 (150-450) k/uL MPV 7.2 Neutrophils % 71 % Lymphocytes % 22 % Monocytes % 3 % Eosinophils % 3 % Basophils % 0 % Neutrophils # 7.1 (1.3-7.7) k/uL Lymphocytes # 2.2 (1.0-4.8) k/uL Monocytes # 0.3 (0-1.0) k/uL Eosinophils # 0.3 (0-0.7) k/uL Basophils # 0.0 (0-0.2) k/uL Sodium (137-145) mmol/L Potassium (3.5-5.1) mmol/L Chloride (98-107) mmol/L Carbon Dioxide (22-30) mmol/L Anion Gap mmol/L BUN (7-17) mg/dL Creatinine (0.52-1.04) mg/dL Est GFR (CKD-EPI)AfAm (>60 ml/min/1.73 sqM) Est GFR (CKD-EPI)NonAf (>60 ml/min/1.73 sqM) Glucose (74-99) mg/dL Plasma Lactic Acid Gabriel (0.7-2.0) mmol/L Calcium (8.4-10.2) mg/dL Total Bilirubin (0.2-1.3) mg/dL AST (14-36) U/L ALT (4-34) U/L Alkaline Phosphatase (38-126) U/L Total Protein (6.3-8.2) g/dL Albumin (3.5-5.0) g/dL Amylase (30-110) U/L Lipase (23-300) U/L Urine Color Light Red Urine Appearance Cloudy H (Clear) Urine pH 5.0 (5.0-8.0) Ur Specific [place] 1.023 (1.001-1.035) Urine Protein 1+ H (Negative) Urine Glucose (UA) Negative (Negative) Urine Ketones Negative (Negative) Urine Blood Large H (Negative) Urine Nitrite Negative (Negative) Urine Bilirubin Negative (Negative) Urine Urobilinogen <2.0 (<2.0) mg/dL Ur Leukocyte Esterase Small H (Negative) Urine RBC >182 H (0-5) /hpf Urine WBC 102 H (0-5) /hpf Ur Squamous Epith Cells 5 H (0-4) /hpf Urine Bacteria Occasional H (None) /hpf Urine Mucus Rare H (None) /hpf Urine HCG, Qual Not Detected (Not Detectd) 07/10/21 07/10/21 Range/Units 17:30 17:30 WBC (3.8-10.6) k/uL RBC (3.80-5.40) m/uL Hgb (11.4-16.0) gm/dL Hct (34.0-46.0) % MCV (80.0-100.0) fL MCH (25.0-35.0) pg MCHC (31.0-37.0) g/dL RDW (11.5-15.5) % Plt Count (150-450) k/uL MPV Neutrophils % % Lymphocytes % % Monocytes % % Eosinophils % % Basophils % % Neutrophils # (1.3-7.7) k/uL Lymphocytes # (1.0-4.8) k/uL Monocytes # (0-1.0) k/uL Eosinophils # (0-0.7) k/uL Basophils # (0-0.2) k/uL Sodium 139 (137-145) mmol/L Potassium 4.5 (3.5-5.1) mmol/L Chloride 102 (98-107) mmol/L Carbon Dioxide 28 (22-30) mmol/L Anion Gap 9 mmol/L BUN 17 (7-17) mg/dL Creatinine 0.87 (0.52-1.04) mg/dL Est GFR (CKD-EPI)AfAm >90 (>60 ml/min/1.73 sqM) Est GFR (CKD-EPI)NonAf >90 (>60 ml/min/1.73 sqM) Glucose 101 H (74-99) mg/dL Plasma Lactic Acid Gabriel 0.8 (0.7-2.0) mmol/L Calcium 9.9 (8.4-10.2) mg/dL Total Bilirubin 0.4 (0.2-1.3) mg/dL AST 24 (14-36) U/L ALT 27 (4-34) U/L Alkaline Phosphatase 83 (38-126) U/L Total Protein 7.2 (6.3-8.2) g/dL Albumin 4.1 (3.5-5.0) g/dL Amylase 41 (30-110) U/L Lipase 55 (23-300) U/L Urine Color Urine Appearance (Clear) Urine pH (5.0-8.0) Ur Specific [place] (1.001-1.035) Urine Protein (Negative) Urine Glucose (UA) (Negative) Urine Ketones (Negative) Urine Blood (Negative) Urine Nitrite (Negative) Urine Bilirubin (Negative) Urine Urobilinogen (<2.0) mg/dL Ur Leukocyte Esterase (Negative) Urine RBC (0-5) /hpf Urine WBC (0-5) /hpf Ur Squamous Epith Cells (0-4) /hpf Urine Bacteria (None) /hpf Urine Mucus (None) /hpf Urine HCG, Qual (Not Detectd) Disposition Clinical Impression: Abdominal pain Disposition: HOME SELF-CARE Condition: Good Instructions (If sedation given, give patient instructions): Abdominal Pain (ED) Is patient prescribed a controlled substance at d/c from ED?: No Referrals: None,Stated [Primary Care Provider] - 1-2 days Chuck Henson [STAFF PHYSICIAN] - 1-2 days Time of Disposition: 19:16
[2021-07-10 17:35] LABS: Appearance,Urine Cloudy (Clear); Bacteria,Urine Occasional /hpf; Bilirubin,Urine Negative (Negative); Blood,Urine Large (Negative); Color,Urine Light Red; Glucose,Urine (UA) Negative (Negative); Ketones,Urine Negative (Negative); Leukocyte Esterase,Urine Small (Negative); Mucus,Urine Rare /hpf; Nitrite,Urine Negative (Negative); Protein,Urine 1+ (Negative); RBC,Urine >182 /hpf (0-5); Specific Gravity,Urine 1.023 (1.001-1.035); Squamous Epithelial Cell,Urine 5 /hpf (0-4); Urobilinogen,Urine <2.0 mg/dL (<2.0); WBC,Urine 102 /hpf (0-5)
[2021-07-10 17:45] LABS: Basophils % (A) 0 %; Eosinophils # (A) 0.3 k/uL (0-0.7); Eosinophils % (A) 3 %; HCT 39.4 % (34.0-46.0); HGB 12.5 gm/dL (11.4-16.0); Lymphocytes # (A) 2.2 k/uL (1.0-4.8); Lymphocytes % (A) 22 %; MCH 25.5 pg (25.0-35.0); MCHC 31.7 g/dL (31.0-37.0); MCV 80.6 fL (80.0-100.0); Mean Platelet Volume 7.2; Monocytes # (A) 0.3 k/uL (0-1.0); Monocytes % (A) 3 %; Neutrophils # (A) 7.1 k/uL (1.3-7.7); Neutrophils % (A) 71 %; Platelet Count 366 k/uL (150-450); RBC 4.89 m/uL (3.80-5.40); RDW 15.1 % (11.5-15.5); WBC 9.9 k/uL (3.8-10.6)
[2021-07-10 17:53] LABS: ALT 27 U/L (4-34); AST 24 U/L (14-36); African American GFR (CKD) >90 (>60 ml/min/1.73 sqM); Albumin 4.1 g/dL (3.5-5.0); Alkaline Phosphatase 83 U/L (38-126); Amylase 41 U/L (30-110); Anion Gap 9 mmol/L; Blood Urea Nitrogen 17 mg/dL (7-17); Calcium 9.9 mg/dL (8.4-10.2); Carbon Dioxide 28 mmol/L (22-30); Chloride 102 mmol/L (98-107); Glucose 101 mg/dL (74-99); Lipase 55 U/L (23-300); Non-African American GFR(CKD) >90 (>60 ml/min/1.73 sqM); Potassium 4.5 mmol/L (3.5-5.1); Sodium 139 mmol/L (137-145); Total Bilirubin 0.4 mg/dL (0.2-1.3); Total Protein 7.2 g/dL (6.3-8.2)
--- NOTE | 2021-07-10 19:04 | CT ---
EXAMINATION TYPE: CT abdomen pelvis w con DATE OF EXAM: 07/10/2021 COMPARISON: 12/18/2010 HISTORY: Generalized abdominal pain and constipation. CT DLP: 2624.1 mGycm Automated exposure control for dose reduction was used. CONTRAST: Performed with IV Contrast, patient injected with 100ml mL of Isovue 300. Lung bases are clear. There is no pleural effusion. Heart size is normal. There is no pericardial eff usion. Liver spleen stomach pancreas appear intact. The bile ducts are not dilated. Gallbladder appea rs absent. There is no adrenal mass. Kidneys show satisfactory contrast opacification. There is 1.5 cm cortical cyst lateral right kidney. Delayed images show normal renal excretion. There is no retroperitoneal ad enopathy. Appendix is lateral and appears normal. Bladder distends smoothly. There is no inguinal her danielle. There is no free fluid in the pelvis. There is no pelvic mass. Uterus is anteverted. The lumbar vertebra have normal spacing and alignment. Posterior elements are intact. There is no com pression fracture. Bony pelvis is intact. The hip joints are intact. There is no mesenteric edema. There is no ascites or free air. There is no bowel obstruction. IMPRESSION: Negative CT scan abdomen and pelvis. Normal appendix.
[2021-07-10 19:26] VITALS: PULSE 80; RESP 16
== END 2021-07-10 19:27 | disposition home or self-care (01) ==
LOC: EC 15:58
DX: R10.10 Upper abdominal pain, unspecified (principal); F41.9 Anxiety disorder, unspecified; F32.A Depression, unspecified; Z91.040 Latex allergy status; Z90.49 Acquired absence of other specified parts of digestive tract
CPT/HCPCS: 99284; 36415; 80053; 82150; 83605; 83690; 85025; 81001; 81025; 87086; 74177; Q9967

== ENCOUNTER 2021-08-04 13:25 | Emergency (ER) | payer OTHER ==
[2021-08-04 14:05] VITALS: BP 119/80; PULSE 85; RESP 18; TEMP 98.5
[2021-08-04 15:47] LABS: Basophils % (A) 1 %; Eosinophils # (A) 0.3 k/uL (0-0.7); Eosinophils % (A) 3 %; HCT 42.3 % (34.0-46.0); HGB 13.6 gm/dL (11.4-16.0); Lymphocytes % (A) 24 %; MCH 25.5 pg (25.0-35.0); MCV 79.6 fL (80.0-100.0); Mean Platelet Volume 7.1; Monocytes # (A) 0.2 k/uL (0-1.0); Monocytes % (A) 3 %; Neutrophils # (A) 5.8 k/uL (1.3-7.7); Neutrophils % (A) 69 %; Platelet Count 327 k/uL (150-450); RBC 5.32 m/uL (3.80-5.40); RDW 14.6 % (11.5-15.5); WBC 8.5 k/uL (3.8-10.6)
[2021-08-04 16:06] LABS: ALT 36 U/L (4-34); AST 25 U/L (14-36); African American GFR (CKD) >90 (>60 ml/min/1.73 sqM); Albumin 4.5 g/dL (3.5-5.0); Alkaline Phosphatase 70 U/L (38-126); Amylase 41 U/L (30-110); Anion Gap 10 mmol/L; Blood Urea Nitrogen 14 mg/dL (7-17); Calcium 9.9 mg/dL (8.4-10.2); Carbon Dioxide 25 mmol/L (22-30); Chloride 103 mmol/L (98-107); Glucose 96 mg/dL (74-99); Lipase 35 U/L (23-300); Non-African American GFR(CKD) >90 (>60 ml/min/1.73 sqM); Potassium 4.2 mmol/L (3.5-5.1); Sodium 138 mmol/L (137-145); Total Bilirubin 0.9 mg/dL (0.2-1.3); Total Protein 7.5 g/dL (6.3-8.2)
--- NOTE | 2021-08-04 19:52 | ED ---
General Adult HPI - General Chief complaint: Abdominal Pain Stated complaint: abd pain Time Seen by Provider: 08/04/21 19:35 Source: patient, RN notes reviewed, old records reviewed Mode of arrival: ambulatory Limitations: no limitations - History of Present Illness Initial comments: This is an anxious well-appearing well-nourished 21-year-old female that presents to the emergency room with complaints of abdominal pain with nausea vomiting and mucousy stools. She also states that she's had increased urination. She see her primary care doctor she states put her on antibiotics for some type of bacterial infection in her abdomen. She has been seen here multiple times for the same pain. She states she had a CAT scan recently. She's had history of cholecystectomy. She states that she had a baby at the end of May only complication was preeclampsia she is no longer on medications. She is a nonsmoker. -: week(s) (3) Location: abdomen Severity scale (1-10): 8 Quality: other (cramping) Improves with: none Worsens with: none Associated Symptoms: nausea/vomiting, other (mucousy stool, urinary frequency) Treatments Prior to Arrival: other (antibiotics) - Related Data Home Medications Medication Instructions Recorded Confirmed No Known Home Medications 07/10/21 08/04/21 Allergies Allergy/AdvReac Type Severity Reaction Status Date / Time latex Allergy Intermediate Rapid Verified 08/04/21 19:53 Heart Rate Review of Systems ROS Statement: Those systems with pertinent positive or pertinent negative responses have been documented in the HPI. ROS Other: All systems not noted in ROS Statement are negative. Past Medical History Past Medical History: No Reported History Additional Past Medical History / Comment(s): Obstetric history: She has had 3 previous vaginal deliveries. O+, abs neg, Rub Imm, RPR NR, Hep B neg, HIV NR. normal anatomy US. History of Any Multi-Drug Resistant Organisms: None Reported Past Surgical History: Cholecystectomy, Hernia Repair, Tonsillectomy Past Anesthesia/Blood Transfusion Reactions: No Reported Reaction Past Psychological History: Anxiety, Depression Smoking Status: Never smoker Past Alcohol Use History: None Reported Past Drug Use History: None Reported - Past Family History Mother Family Medical History: Hypertension General Exam Limitations: no limitations General appearance: alert, in no apparent distress Head exam: Present: atraumatic, normocephalic, normal inspection Eye exam: Present: normal appearance, EOMI Neck exam: Present: full ROM. Absent: meningismus Respiratory exam: Present: normal lung sounds bilaterally. Absent: respiratory distress, wheezes, rales, rhonchi, stridor, chest wall tenderness, accessory muscle use Cardiovascular Exam: Present: regular rate, normal rhythm, normal heart sounds. Absent: systolic murmur, diastolic murmur, rubs, gallop, clicks, JVD GI/Abdominal exam: Present: soft. Absent: distended, tenderness Extremities exam: Present: normal inspection, full ROM, normal capillary refill. Absent: tenderness, pedal edema, joint swelling, calf tenderness Back exam: Present: normal inspection, full ROM. Absent: tenderness, CVA tenderness (R), CVA tenderness (L), rash noted Neurological exam: Present: alert, oriented X3, normal gait Psychiatric exam: Present: normal affect, normal mood, anxious Skin exam: Present: warm, dry, intact, normal color. Absent: rash, cyanosis, diaphoretic Course Vital Signs 08/04/21 14:02 Temperature 98.5 F Pulse Rate 85 Respiratory 18 Rate Blood Pressure 119/80 O2 Sat by Pulse 100 Oximetry Medical Decision Making - Medical Decision Making Anxious well-appearing 21-year-old female presents with complaints of abdominal pain with nausea vomiting, mucousy stools and increased urination. She seen her primary care doctor who put her on antibiotics for some type of bacterial infection in her abdomen. She has been seen here multiple times for the same pain. CT of the abdomen and pelvis with contrast on July 10, 2021 was negative. She does have a history of cholecystectomy. No pelvic masses were noted. Lab work today shows a normal CBC with no evidence of leukocytosis. Her electrolytes are unremarkable. Her urinalysis is clear for infection, blood or ketones. Urine test was negative. Her abdomen is soft and nontender upon examination. She is ambulatory with a steady gait. Vital signs are stable and she has been afebrile. Patient eloped before discharge was complete. Case was discussed with Dr. Willett. - Lab Data Result diagrams: 08/04/21 15:37 08/04/21 15:37 Lab Results 08/04/21 08/04/21 08/04/21 Range/Units 15:37 15:37 20:00 WBC 8.5 (3.8-10.6) k/uL RBC 5.32 (3.80-5.40) m/uL Hgb 13.6 (11.4-16.0) gm/dL Hct 42.3 (34.0-46.0) % MCV 79.6 L (80.0-100.0) fL MCH 25.5 (25.0-35.0) pg MCHC 32.0 (31.0-37.0) g/dL RDW 14.6 (11.5-15.5) % Plt Count 327 (150-450) k/uL MPV 7.1 Neutrophils % 69 % Lymphocytes % 24 % Monocytes % 3 % Eosinophils % 3 % Basophils % 1 % Neutrophils # 5.8 (1.3-7.7) k/uL Lymphocytes # 2.0 (1.0-4.8) k/uL Monocytes # 0.2 (0-1.0) k/uL Eosinophils # 0.3 (0-0.7) k/uL Basophils # 0.0 (0-0.2) k/uL Sodium 138 (137-145) mmol/L Potassium 4.2 (3.5-5.1) mmol/L Chloride 103 (98-107) mmol/L Carbon Dioxide 25 (22-30) mmol/L Anion Gap 10 mmol/L BUN 14 (7-17) mg/dL Creatinine 0.64 (0.52-1.04) mg/dL Est GFR (CKD-EPI)AfAm >90 (>60 ml/min/1.73 sqM) Est GFR (CKD-EPI)NonAf >90 (>60 ml/min/1.73 sqM) Glucose 96 (74-99) mg/dL Calcium 9.9 (8.4-10.2) mg/dL Total Bilirubin 0.9 (0.2-1.3) mg/dL AST 25 (14-36) U/L ALT 36 H (4-34) U/L Alkaline Phosphatase 70 (38-126) U/L Total Protein 7.5 (6.3-8.2) g/dL Albumin 4.5 (3.5-5.0) g/dL Amylase 41 (30-110) U/L Lipase 35 (23-300) U/L Urine Color Yellow Urine Appearance Clear (Clear) Urine pH 5.0 (5.0-8.0) Ur Specific [place] 1.017 (1.001-1.035) Urine Protein Trace H (Negative) Urine Glucose (UA) Negative (Negative) Urine Ketones Negative (Negative) Urine Blood Negative (Negative) Urine Nitrite Negative (Negative) Urine Bilirubin Negative (Negative) Urine Urobilinogen <2.0 (<2.0) mg/dL Ur Leukocyte Esterase Negative (Negative) Urine HCG, Qual (Not Detectd) 08/04/21 Range/Units 20:00 WBC (3.8-10.6) k/uL RBC (3.80-5.40) m/uL Hgb (11.4-16.0) gm/dL Hct (34.0-46.0) % MCV (80.0-100.0) fL MCH (25.0-35.0) pg MCHC (31.0-37.0) g/dL RDW (11.5-15.5) % Plt Count (150-450) k/uL MPV Neutrophils % % Lymphocytes % % Monocytes % % Eosinophils % % Basophils % % Neutrophils # (1.3-7.7) k/uL Lymphocytes # (1.0-4.8) k/uL Monocytes # (0-1.0) k/uL Eosinophils # (0-0.7) k/uL Basophils # (0-0.2) k/uL Sodium (137-145) mmol/L Potassium (3.5-5.1) mmol/L Chloride (98-107) mmol/L Carbon Dioxide (22-30) mmol/L Anion Gap mmol/L BUN (7-17) mg/dL Creatinine (0.52-1.04) mg/dL Est GFR (CKD-EPI)AfAm (>60 ml/min/1.73 sqM) Est GFR (CKD-EPI)NonAf (>60 ml/min/1.73 sqM) Glucose (74-99) mg/dL Calcium (8.4-10.2) mg/dL Total Bilirubin (0.2-1.3) mg/dL AST (14-36) U/L ALT (4-34) U/L Alkaline Phosphatase (38-126) U/L Total Protein (6.3-8.2) g/dL Albumin (3.5-5.0) g/dL Amylase (30-110) U/L Lipase (23-300) U/L Urine Color Urine Appearance (Clear) Urine pH (5.0-8.0) Ur Specific [place] (1.001-1.035) Urine Protein (Negative) Urine Glucose (UA) (Negative) Urine Ketones (Negative) Urine Blood (Negative) Urine Nitrite (Negative) Urine Bilirubin (Negative) Urine Urobilinogen (<2.0) mg/dL Ur Leukocyte Esterase (Negative) Urine HCG, Qual Not Detected (Not Detectd) Disposition Clinical Impression: Abdominal pain Disposition: HOME SELF-CARE Condition: Good Instructions (If sedation given, give patient instructions): Abdominal Pain (ED) Is patient prescribed a controlled substance at d/c from ED?: No Referrals: Andrzej Kramer MD [Primary Care Provider] - 1-2 days Time of Disposition: 20:24
[2021-08-04 20:09] LABS: Appearance,Urine Clear (Clear); Bilirubin,Urine Negative (Negative); Blood,Urine Negative (Negative); Color,Urine Yellow; Glucose,Urine (UA) Negative (Negative); Ketones,Urine Negative (Negative); Leukocyte Esterase,Urine Negative (Negative); Nitrite,Urine Negative (Negative); Protein,Urine Trace (Negative); Specific Gravity,Urine 1.017 (1.001-1.035); Urobilinogen,Urine <2.0 mg/dL (<2.0)
== END 2021-08-04 20:03 | disposition home or self-care (01) ==
LOC: EC 13:25
DX: R10.9 Unspecified abdominal pain (principal); F41.9 Anxiety disorder, unspecified; F32.A Depression, unspecified; Z90.49 Acquired absence of other specified parts of digestive tract; Z91.040 Latex allergy status
CPT/HCPCS: 36415; 80053; 81003; 81025; 82150; 83690; 85025; 99284

== ENCOUNTER 2021-12-17 00:48 | Emergency (ER) | payer OTHER ==
[2021-12-17 01:13] VITALS: RESP 18
[2021-12-17] MEDS ORDERED: SODIUM CHLORIDE 0.9% 1,000 ML IV ONE (01:16)
[2021-12-17 01:45] LABS: Basophils # (A) 0.1 k/uL (0-0.2); Basophils % (A) 1 %; Eosinophils # (A) 0.3 k/uL (0-0.7); Eosinophils % (A) 3 %; HCT 37.7 % (34.0-46.0); HGB 11.9 gm/dL (11.4-16.0); Lymphocytes # (A) 2.4 k/uL (1.0-4.8); Lymphocytes % (A) 24 %; MCH 25.4 pg (25.0-35.0); MCHC 31.6 g/dL (31.0-37.0); MCV 80.1 fL (80.0-100.0); Mean Platelet Volume 6.8; Monocytes # (A) 0.3 k/uL (0-1.0); Monocytes % (A) 3 %; Neutrophils # (A) 7.1 k/uL (1.3-7.7); Neutrophils % (A) 68 %; Platelet Count 325 k/uL (150-450); RDW 14.3 % (11.5-15.5); WBC 10.3 k/uL (3.8-10.6)
[2021-12-17 01:55] LABS: ALT 14 U/L (4-34); AST 14 U/L (14-36); African American GFR (CKD) >90 (>60 ml/min/1.73 sqM); Alkaline Phosphatase 69 U/L (38-126); Anion Gap 5 mmol/L; Blood Urea Nitrogen 18 mg/dL (7-17); Calcium 9.5 mg/dL (8.4-10.2); Carbon Dioxide 27 mmol/L (22-30); Chloride 105 mmol/L (98-107); Glucose 108 mg/dL (74-99); Non-African American GFR(CKD) >90 (>60 ml/min/1.73 sqM); Sodium 137 mmol/L (137-145); Total Bilirubin 0.3 mg/dL (0.2-1.3); Total Protein 6.7 g/dL (6.3-8.2)
--- NOTE | 2021-12-17 01:56 | US ---
EXAMINATION TYPE: Transabdominal DATE OF EXAM: 12/17/2021 1:40 AM COMPARISON: NONE CLINICAL HISTORY: pain. Patient states she has spotting after intercourse. EXAM PERFORMED: Transabdominal (TA) EXAM MEASUREMENTS: GESTATIONAL AGE / DATING Physician Established: (7 weeks/4 days) EDC: 08/01/22 Dates by First Scan: No previous this is first scan Dates by Current Scan for: (7 weeks/5 days) EDC: 07/31/22 MATERNAL ANATOMY Uterus: 9.8 x 5.4 x 7.0 cm; possible subchorionic bleed. Right Ovary: 3.2 x 2.5 x 2.3 cm; cyst-like focus 2.3 x 1.6 x 1.5 cm Left Ovary: 2.1 x 1.7 x 2.1 cm Post CDS / Adnexa: wnl Presence of free fluid: no Presence of corpus luteal cyst: Possible area on right ovary noted above. Presence of subchorionic bleed: 1.0 x 0.9 x 0.8 cm GESTATION / SURVEY CRL: 1.40 cm (7 weeks/5 days) MSD: wnl Yolk Sac (normal less than 6mm): 0.28 cm Heart Rate: 178 bpm Rhythm: Normal IUP: Viable IUP IMPRESSION: The ultrasound gestational age is 7 weeks and 5 days. No complicating process seen.
--- NOTE | 2021-12-17 02:20 | ED ---
Female Urogenital HPI - General Chief complaint: Vaginal Bleeding Stated complaint: Vaginal bleeding, 9wks preg Time Seen by Provider: 12/17/21 01:17 Source: patient, RN notes reviewed Mode of arrival: ambulatory Limitations: no limitations - History of Present Illness Initial comments: Patient presents to the wrist with slight spotting after having sexual intercourse. This happened twice. Patient denying any pain. No dysuria. No headache, no fever or chills, no changes in vision or hearing, no sore throat or difficulty with speech, no neck pain, no chest pain or shortness of breath, no abdominal pain, no nausea or vomiting, no changes in urination or bowel movements, no numbness or tingling, no extremity pain, no skin rashes or lesions. Patient is A0. [employer] Supervisor is Dr. Will HORNE Complaint: vaginal bleeding - Related Data Home Medications Medication Instructions Recorded Confirmed No Known Home Medications 07/10/21 08/04/21 Allergies Allergy/AdvReac Type Severity Reaction Status Date / Time latex Allergy Intermediate Rapid Verified 12/17/21 01:13 Heart Rate Review of Systems ROS Statement: Those systems with pertinent positive or pertinent negative responses have been documented in the HPI. ROS Other: All systems not noted in ROS Statement are negative. Past Medical History Past Medical History: No Reported History Additional Past Medical History / Comment(s): Obstetric history: She has had 3 previous vaginal deliveries. O+, abs neg, Rub Imm, RPR NR, Hep B neg, HIV NR. normal anatomy US. History of Any Multi-Drug Resistant Organisms: None Reported Past Surgical History: Cholecystectomy, Hernia Repair, Tonsillectomy Past Anesthesia/Blood Transfusion Reactions: No Reported Reaction Past Psychological History: Anxiety, Depression Smoking Status: Never smoker Past Alcohol Use History: None Reported Past Drug Use History: None Reported - Past Family History Mother Family Medical History: Hypertension General Exam Limitations: no limitations General appearance: alert, in no apparent distress Head exam: Present: atraumatic, normocephalic, normal inspection Eye exam: Present: normal appearance, PERRL, EOMI. Absent: scleral icterus, conjunctival injection, periorbital swelling ENT exam: Present: normal exam, normal oropharynx, mucous membranes dry, mucous membranes moist, TM's normal bilaterally, normal external ear exam Neck exam: Present: normal inspection, full ROM. Absent: tenderness, meningismus, lymphadenopathy Respiratory exam: Present: normal lung sounds bilaterally. Absent: respiratory distress, wheezes, rales, rhonchi, stridor, chest wall tenderness, accessory muscle use Cardiovascular Exam: Present: regular rate, normal rhythm, normal heart sounds. Absent: systolic murmur, diastolic murmur, rubs, gallop, clicks GI/Abdominal exam: Present: soft, normal bowel sounds. Absent: distended, tenderness, guarding, rebound, rigid Extremities exam: Present: normal inspection, full ROM, normal capillary refill. Absent: tenderness, pedal edema, joint swelling, calf tenderness Back exam: Present: normal inspection Neurological exam: Present: alert, oriented X3, CN II-XII intact Psychiatric exam: Present: normal affect, normal mood Skin exam: Present: warm, dry, intact, normal color. Absent: rash Course Vital Signs 12/17/21 01:10 Temperature 97.9 F Pulse Rate 72 Respiratory 18 Rate Blood Pressure 129/88 O2 Sat by Pulse 96 Oximetry Medical Decision Making - Medical Decision Making Intrauterine at 7 weeks 4 days. heart rate 178. No complicating process. Patient evaluated, hemodynamic stable. Rh factor is positive. We'll order repeat blood pressure test in 48 hours. Patient educated on findings. Pelvic rest advised until follow-up with power barker. Patient was told to return to the ER for any signs or symptoms worsen. Told to return immediately if any other problems arise. All questions answered. Treatment plan discussed. Patient in agreement Every effort has been made to ensure accuracy of this dictation. However, due to the limitations of electronic medical records and dictation devices, errors in charting still occur. Supervisors Dr. Schneider - Lab Data Result diagrams: 12/17/21 01:28 12/17/21 01:28 Lab Results 12/17/21 12/17/21 12/17/21 Range/Units 01:28 01:28 03:13 WBC 10.3 (3.8-10.6) k/uL RBC 4.70 (3.80-5.40) m/uL Hgb 11.9 (11.4-16.0) gm/dL Hct 37.7 (34.0-46.0) % MCV 80.1 (80.0-100.0) fL MCH 25.4 (25.0-35.0) pg MCHC 31.6 (31.0-37.0) g/dL RDW 14.3 (11.5-15.5) % Plt Count 325 (150-450) k/uL MPV 6.8 Neutrophils % 68 % Lymphocytes % 24 % Monocytes % 3 % Eosinophils % 3 % Basophils % 1 % Neutrophils # 7.1 (1.3-7.7) k/uL Lymphocytes # 2.4 (1.0-4.8) k/uL Monocytes # 0.3 (0-1.0) k/uL Eosinophils # 0.3 (0-0.7) k/uL Basophils # 0.1 (0-0.2) k/uL Sodium 137 (137-145) mmol/L Potassium 4.0 (3.5-5.1) mmol/L Chloride 105 (98-107) mmol/L Carbon Dioxide 27 (22-30) mmol/L Anion Gap 5 mmol/L BUN 18 H (7-17) mg/dL Creatinine 0.66 (0.52-1.04) mg/dL Est GFR (CKD-EPI)AfAm >90 (>60 ml/min/1.73 sqM) Est GFR (CKD-EPI)NonAf >90 (>60 ml/min/1.73 sqM) Glucose 108 H (74-99) mg/dL Calcium 9.5 (8.4-10.2) mg/dL Total Bilirubin 0.3 (0.2-1.3) mg/dL AST 14 (14-36) U/L ALT 14 (4-34) U/L Alkaline Phosphatase 69 (38-126) U/L Total Protein 6.7 (6.3-8.2) g/dL Albumin 4.0 (3.5-5.0) g/dL HCG, Quant 67995.2 mIU/mL Urine Color Yellow Urine Appearance Clear (Clear) Urine pH 5.5 (5.0-8.0) Ur Specific [place] 1.027 (1.001-1.035) Urine Protein Negative (Negative) Urine Glucose (UA) Negative (Negative) Urine Ketones Negative (Negative) Urine Blood Large H (Negative) Urine Nitrite Negative (Negative) Urine Bilirubin Negative (Negative) Urine Urobilinogen <2.0 (<2.0) mg/dL Ur Leukocyte Esterase Trace H (Negative) Urine RBC 1 (0-5) /hpf Urine WBC 2 (0-5) /hpf Ur Squamous Epith Cells 1 (0-4) /hpf Urine Bacteria Rare H (None) /hpf Urine Mucus Occasional H (None) /hpf Disposition Clinical Impression: Threatened miscarriage in early , Vaginal bleeding affecting early , Subchorionic hemorrhage in first trimester Disposition: HOME SELF-CARE Condition: Good Instructions (If sedation given, give patient instructions): Threatened M iscarriage (ED), Subchorionic Hemorrhage (ED) Additional Instructions: Make a follow-up plan with Dr. Solis. Return to the outpatient laboratory 48 hours for repeat blood test. Have the results sent to Dr. Solis. Pelvic rest for 10 days or until cleared by the power barker. Follow-up with your regular physician as directed. Return to the ER immediately if any symptoms worsen, new symptoms arise, or any other problems develop. Is patient prescribed a controlled substance at d/c from ED?: No Referrals: Allison Solis DO [Doctor of Osteopathic Medicine] - 12/19/21 Time of Disposition: 03:03
[2021-12-17 02:55] LABS: HCG,Quantitative Serum 23137.2 mIU/mL
[2021-12-17 03:59] LABS: Appearance,Urine Clear (Clear); Bacteria,Urine Rare /hpf; Bilirubin,Urine Negative (Negative); Blood,Urine Large (Negative); Color,Urine Yellow; Glucose,Urine (UA) Negative (Negative); Ketones,Urine Negative (Negative); Leukocyte Esterase,Urine Trace (Negative); Mucus,Urine Occasional /hpf; Nitrite,Urine Negative (Negative); PH, Urine 5.5 (5.0-8.0); Protein,Urine Negative (Negative); RBC,Urine 1 /hpf (0-5); Specific Gravity,Urine 1.027 (1.001-1.035); Squamous Epithelial Cell,Urine 1 /hpf (0-4); Urobilinogen,Urine <2.0 mg/dL (<2.0); WBC,Urine 2 /hpf (0-5)
[2021-12-17 04:30] VITALS: BP 132/83; PULSE 75; TEMP 98.7
[2021-12-18 13:31] LABS: C. trachomatis,PCR Negative (Neg,Equiv); Chlamydia trachomatis Source Urine; N. gonorrhoeae,PCR Negative (Neg,Equiv); Neisseria Source Urine
== END 2021-12-17 04:30 | disposition home or self-care (01) ==
LOC: EC 00:48
DX: O20.8 Other hemorrhage in early pregnancy (principal); O20.0 Threatened abortion; Z3A.01 Less than 8 weeks gestation of pregnancy; Z91.040 Latex allergy status
CPT/HCPCS: 36415; 76801; 80053; 81001; 84702; 85025; 86900; 86901; 87491; 87591

== ENCOUNTER 2021-12-18 11:03 | Emergency (ER) | payer OTHER ==
[2021-12-18 11:27] VITALS: RESP 18; TEMP 98.4
--- NOTE | 2021-12-18 11:42 | ED ---
General Adult HPI - General Chief complaint: Vaginal Bleeding Stated complaint: BLEEDING Time Seen by Provider: 12/18/21 11:15 Source: patient, EMS Mode of arrival: EMS - History of Present Illness Initial comments: This 21-year-old female with A1 who is 8 weeks presents emergency Department with vaginal bleeding. Patient states she began to experience abdominal cramping around 11 AM and went to use the bathroom and passed a blood clot. Patient states she has had some vaginal bleeding since. Patient states she has experienced slight bleeding throughout this entire and states it usually occurred after sexual intercourse. Patient states she was seen here 2 days ago for light bleeding after vaginal intercourse. Patient states when she was here 2 days ago she was diagnosed with threatened miscarriage and subchorionic hemorrhage. Patient states since she was discharged she has had some light bleeding, however she states there was a heartbeat on her transvaginal ultrasound with a viable intrauterine . Patient states she is still experiencing a little bit of abdominal cramping but denies any chest pain, shortness of breath, nausea, vomiting, change in bowel or bladder, change in appetite, lightheadedness, dizziness, headache, change in vision, back pain, fever. - Related Data Home Medications Medication Instructions Recorded Confirmed No Known Home Medications 07/10/21 12/18/21 Allergies Allergy/AdvReac Type Severity Reaction Status Date / Time latex Allergy Intermediate Rapid Verified 12/18/21 12:29 Heart Rate Review of Systems ROS Statement: Those systems with pertinent positive or pertinent negative responses have been documented in the HPI. ROS Other: All systems not noted in ROS Statement are negative. Past Medical History Past Medical History: No Reported History Additional Past Medical History / Comment(s): Obstetric history: She has had 3 previous vaginal deliveries. O+, abs neg, Rub Imm, RPR NR, Hep B neg, HIV NR. normal anatomy US. History of Any Multi-Drug Resistant Organisms: None Reported Past Surgical History: Cholecystectomy, Hernia Repair, Tonsillectomy Past Anesthesia/Blood Transfusion Reactions: No Reported Reaction Past Psychological History: Anxiety, Depression Smoking Status: Never smoker Past Alcohol Use History: None Reported Past Drug Use History: None Reported - Past Family History Mother Family Medical History: Hypertension General Exam General appearance: alert, in no apparent distress Head exam: Present: atraumatic, normocephalic, normal inspection Eye exam: Present: normal appearance, PERRL, EOMI. Absent: scleral icterus, conjunctival injection, periorbital swelling Pupils: Present: normal accommodation ENT exam: Present: normal exam, mucous membranes moist Neck exam: Present: normal inspection, full ROM. Absent: tenderness, meningismus, lymphadenopathy Respiratory exam: Present: normal lung sounds bilaterally. Absent: respiratory distress, wheezes, rales, rhonchi, stridor Cardiovascular Exam: Present: regular rate, normal rhythm, normal heart sounds. Absent: systolic murmur, diastolic murmur, rubs, gallop, clicks GI/Abdominal exam: Present: soft, normal bowel sounds. Absent: distended, tenderness, guarding, rebound, rigid External exam: Present: other (Clot present at the opening of the external vaginal canal) Speculum exam: Present: other (Patient did refuse speculum exam) By manual exam: Present: other (Patient did refuse bimanual exam) Extremities exam: Present: normal inspection, full ROM, normal capillary refill. Absent: tenderness, pedal edema, joint swelling, calf tenderness Back exam: Present: full ROM. Absent: CVA tenderness (R), CVA tenderness (L), paraspinal tenderness, vertebral tenderness Neurological exam: Present: alert, oriented X3, CN II-XII intact Psychiatric exam: Present: normal affect, normal mood Skin exam: Present: warm, dry, intact, normal color. Absent: rash Course Vital Signs 12/18/21 11:19 Temperature 98.4 F Pulse Rate 92 Respiratory 18 Rate Blood Pressure 143/91 O2 Sat by Pulse 100 Oximetry Medical Decision Making - Medical Decision Making This A2 presents emergency department with vaginal bleeding and cramping at 8 weeks . Labs with hemoglobin 11.3 compared to 11.9 on 12/17. H[place] Quant 16591.2 [place] 92143.2 on 12/17. Compared to a live intrauterine with heartbeat on 12/17/21, transvaginal ultrasound today impression: Ultrasound findings are consistent with interval spontaneous . Prior visualized gestational sac, yolk sac and pole not clearly seen. No free fluid and pelvic cul-de-sac. No intrauterine seen at this time. Patient with mild bleeding here in the emergency department but did refuse pelvic exam/intravaginal visualization exam/bimanual exam. I was able to visualize an external exam that did have a clot present at the external opening without any bleeding coming from either side from clot. Prior to discharge patient stated her cramping had almost subsided and her vaginal bleeding had greatly decreased after she passed a clot which she believed was the fetus. Patient's urine with red blood cells and white blood cells, however there is no bacteria or nitrites. Patient without any urinary tract infection symptoms at this time. Patient instructed to return with heavy bleeding, fever, lightheadedness, dizziness, paleness- she agreed if these symptoms happened that she would return. Patient was instructed to follow-up with her [employer]REIGHT CLERK, in next 1-2 days. Strict return precautions were discussed. Patient verbally agree to plan. Patient sent home in stable condition. Case discussed in detail with my attending, . - Lab Data Result diagrams: 12/18/21 13:02 12/18/21 12:04 Lab Results 12/18/21 12/18/21 12/18/21 Range/Units 12:04 12:04 12:04 WBC (3.8-10.6) k/uL RBC (3.80-5.40) m/uL Hgb (11.4-16.0) gm/dL Hct (34.0-46.0) % MCV (80.0-100.0) fL MCH (25.0-35.0) pg MCHC (31.0-37.0) g/dL RDW (11.5-15.5) % Plt Count (150-450) k/uL MPV Neutrophils % % Lymphocytes % % Monocytes % % Eosinophils % % Basophils % % Neutrophils # (1.3-7.7) k/uL Lymphocytes # (1.0-4.8) k/uL Monocytes # (0-1.0) k/uL Eosinophils # (0-0.7) k/uL Basophils # (0-0.2) k/uL Sodium 138 (137-145) mmol/L Potassium 4.1 (3.5-5.1) mmol/L Chloride 104 (98-107) mmol/L Carbon Dioxide 25 (22-30) mmol/L Anion Gap 9 mmol/L BUN 16 (7-17) mg/dL Creatinine 0.57 (0.52-1.04) mg/dL Est GFR (CKD-EPI)AfAm >90 (>60 ml/min/1.73 sqM) Est GFR (CKD-EPI)NonAf >90 (>60 ml/min/1.73 sqM) Glucose 94 (74-99) mg/dL Calcium 9.2 (8.4-10.2) mg/dL Total Bilirubin 0.5 (0.2-1.3) mg/dL AST 16 (14-36) U/L ALT 16 (4-34) U/L Alkaline Phosphatase 66 (38-126) U/L Total Protein 7.0 (6.3-8.2) g/dL Albumin 4.3 (3.5-5.0) g/dL HCG, Quant 47904.2 mIU/mL Urine Color Urine Appearance (Clear) Urine pH (5.0-8.0) Ur Specific [place] (1.001-1.035) Urine Protein (Negative) Urine Glucose (UA) (Negative) Urine Ketones (Negative) Urine Blood (Negative) Urine Nitrite (Negative) Urine Bilirubin (Negative) Urine Urobilinogen (<2.0) mg/dL Ur Leukocyte Esterase (Negative) Urine RBC (0-5) /hpf Urine WBC (0-5) /hpf Ur Squamous Epith Cells (0-4) /hpf Amorphous Sediment (None) /hpf Urine Mucus (None) /hpf Urine HCG, Qual Detected (Not Detectd) Blood Type O Positive Blood Type Recheck O Pos Bld Type Recheck Status No 12/18/21 12/18/21 Range/Units 12:04 13:02 WBC 12.0 H (3.8-10.6) k/uL RBC 4.41 (3.80-5.40) m/uL Hgb 11.3 L (11.4-16.0) gm/dL Hct 35.3 (34.0-46.0) % MCV 80.0 (80.0-100.0) fL MCH 25.6 (25.0-35.0) pg MCHC 32.0 (31.0-37.0) g/dL RDW 14.3 (11.5-15.5) % Plt Count 324 (150-450) k/uL MPV 7.5 Neutrophils % 79 % Lymphocytes % 14 % Monocytes % 3 % Eosinophils % 2 % Basophils % 1 % Neutrophils # 9.5 H (1.3-7.7) k/uL Lymphocytes # 1.7 (1.0-4.8) k/uL Monocytes # 0.4 (0-1.0) k/uL Eosinophils # 0.3 (0-0.7) k/uL Basophils # 0.1 (0-0.2) k/uL Sodium (137-145) mmol/L Potassium (3.5-5.1) mmol/L Chloride (98-107) mmol/L Carbon Dioxide (22-30) mmol/L Anion Gap mmol/L BUN (7-17) mg/dL Creatinine (0.52-1.04) mg/dL Est GFR (CKD-EPI)AfAm (>60 ml/min/1.73 sqM) Est GFR (CKD-EPI)NonAf (>60 ml/min/1.73 sqM) Glucose (74-99) mg/dL Calcium (8.4-10.2) mg/dL Total Bilirubin (0.2-1.3) mg/dL AST (14-36) U/L ALT (4-34) U/L Alkaline Phosphatase (38-126) U/L Total Protein (6.3-8.2) g/dL Albumin (3.5-5.0) g/dL HCG, Quant mIU/mL Urine Color Light Red Urine Appearance Cloudy H (Clear) Urine pH 5.5 (5.0-8.0) Ur Specific [place] 1.030 (1.001-1.035) Urine Protein 1+ H (Negative) Urine Glucose (UA) Negative (Negative) Urine Ketones Trace H (Negative) Urine Blood Large H (Negative) Urine Nitrite Negative (Negative) Urine Bilirubin Negative (Negative) Urine Urobilinogen <2.0 (<2.0) mg/dL Ur Leukocyte Esterase Small H (Negative) Urine RBC >182 H (0-5) /hpf Urine WBC 12 H (0-5) /hpf Ur Squamous Epith Cells 1 (0-4) /hpf Amorphous Sediment Rare H (None) /hpf Urine Mucus Many H (None) /hpf Urine HCG, Qual (Not Detectd) Blood Type Blood Type Recheck Bld Type Recheck Status Disposition Clinical Impression: Miscarriage at 8 to 28 weeks gestation, Vaginal bleeding in patient after first trimester Disposition: HOME SELF-CARE Condition: Stable Instructions (If sedation given, give patient instructions): Miscarriage (ED) Additional Instructions: Please follow-up with in the next 1-2 days. Follow-up with your primary care provider next 1-2 days. Return to the emergency department with any new, worsening, or concerning symptoms. Is patient prescribed a controlled substance at d/c from ED?: No Referrals: Andrzej Kramer MD [Primary Care Provider] - 1-2 days Allison Solis DO [Doctor of Osteopathic Medicine] - 1-2 days Time of Disposition: 15:02
[2021-12-18 12:34] LABS: ALT 16 U/L (4-34); AST 16 U/L (14-36); African American GFR (CKD) >90 (>60 ml/min/1.73 sqM); Albumin 4.3 g/dL (3.5-5.0); Alkaline Phosphatase 66 U/L (38-126); Anion Gap 9 mmol/L; Blood Urea Nitrogen 16 mg/dL (7-17); Calcium 9.2 mg/dL (8.4-10.2); Carbon Dioxide 25 mmol/L (22-30); Chloride 104 mmol/L (98-107); Glucose 94 mg/dL (74-99); Non-African American GFR(CKD) >90 (>60 ml/min/1.73 sqM); Potassium 4.1 mmol/L (3.5-5.1); Sodium 138 mmol/L (137-145); Total Bilirubin 0.5 mg/dL (0.2-1.3)
--- NOTE | 2021-12-18 13:00 | US ---
EXAMINATION TYPE: Transabdominal DATE OF EXAM: 12/18/2021 12:32 PM COMPARISON: Ultrasound one day earlier CLINICAL HISTORY: bleeding. clots, and cramping x 1 day, , large body habitus EXAM PERFORMED: OBTA EXAM MEASUREMENTS: GESTATIONAL AGE / DATING Physician Established: (7 weeks/5 days) EDC: 08/01/2022 Dates by LMP: Dates by First Scan: (7 weeks/6 days) EDC: 07/31/2022 Dates by Current Scan for: No IUP seen at this time MATERNAL ANATOMY Uterus: 11.5 x 7.4 x 5.8cm Right Ovary: 4.6 x 3.8 x 3.2cm Left Ovary: 2.5 x 2.4 x 1.9cm Post CDS / Adnexa: wnl Presence of free fluid: no Presence of corpus luteal cyst: right ovary = 3.0cm Presence of subchorionic bleed: no GESTATION / SURVEY Endometrium = 1.2cm in fundus with no signs of , probable spontaneous miscarriage Date of LMP: unknown Beta HcG (if available): pending Anteverted uterus redemonstrated. Endometrium thickened to 12 mm. Prior visualized gestational sac, y olk sac, and pole not clearly seen. No free fluid in pelvic cul-de-sac. Bilateral ovaries redemonstrated with 3.0 cm hypoechoic to anechoic lesion in the right ovary with in creased through transmission favoring corpus luteal cyst redemonstrated. IMPRESSION: Ultrasound findings are consistent with interval spontaneous from one day felicity stone
[2021-12-18 13:17] LABS: HCG,Quantitative Serum 19686.2 mIU/mL
[2021-12-18 13:18] LABS: Basophils # (A) 0.1 k/uL (0-0.2); Basophils % (A) 1 %; Eosinophils # (A) 0.3 k/uL (0-0.7); Eosinophils % (A) 2 %; HCT 35.3 % (34.0-46.0); HGB 11.3 gm/dL (11.4-16.0); Lymphocytes # (A) 1.7 k/uL (1.0-4.8); Lymphocytes % (A) 14 %; MCH 25.6 pg (25.0-35.0); Mean Platelet Volume 7.5; Monocytes # (A) 0.4 k/uL (0-1.0); Monocytes % (A) 3 %; Neutrophils # (A) 9.5 k/uL (1.3-7.7); Neutrophils % (A) 79 %; Platelet Count 324 k/uL (150-450); RBC 4.41 m/uL (3.80-5.40); RDW 14.3 % (11.5-15.5)
[2021-12-18 14:21] LABS: Amorphous Sediment,Urine Rare /hpf; Appearance,Urine Cloudy (Clear); Bilirubin,Urine Negative (Negative); Blood,Urine Large (Negative); Color,Urine Light Red; Glucose,Urine (UA) Negative (Negative); Ketones,Urine Trace (Negative); Leukocyte Esterase,Urine Small (Negative); Mucus,Urine Many /hpf; Nitrite,Urine Negative (Negative); PH, Urine 5.5 (5.0-8.0); Protein,Urine 1+ (Negative); RBC,Urine >182 /hpf (0-5); Squamous Epithelial Cell,Urine 1 /hpf (0-4); Urobilinogen,Urine <2.0 mg/dL (<2.0); WBC,Urine 12 /hpf (0-5)
[2021-12-18 15:43] VITALS: BP 142/84; PULSE 84
== END 2021-12-18 15:43 | disposition home or self-care (01) ==
LOC: EC 11:03
DX: O03.9 Complete or unspecified spontaneous abortion without complication (principal); O98.711 Human immunodeficiency virus [HIV] disease complicating pregnancy, first trimester; B20 Human immunodeficiency virus [HIV] disease; Z3A.01 Less than 8 weeks gestation of pregnancy; Z91.040 Latex allergy status
CPT/HCPCS: 36415; 76801; 80053; 81001; 81025; 84702; 85025; 86900; 86901; 87086; 99284

== ENCOUNTER 2022-11-13 13:36 | Emergency (ER) | payer MEDICARE, OTHER ==
--- NOTE | 2022-11-13 14:18 | ED ---
General Adult HPI - General Source: patient Mode of arrival: ambulatory Limitations: no limitations <Jovon Rose - Last Filed: 11/14/22 12:06> <Miryam Villanueva - Last Filed: 11/19/22 12:25> - General Chief complaint: Vaginal Bleeding Stated complaint: vaginal bleeding - 11 wks Time Seen by Provider: 11/13/22 14:11 - History of Present Illness Initial comments: Dictation was produced using [employer] dictation software. please excuse any grammatical, word or spelling errors. Chief Complaint: 22-year-old female presents to the emergency department for vaginal bleeding History of Present Illness: 22-year-old female she was diagnosed with subchorionic bleed recently. 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 She is allegedly 11 weeks . She had an ultrasound performed at WAREHOUSE SHIPPING RECEIVING CLERK's office showing baby with a heart rate of 178 and subchorionic bleed. They told her that the bleeding is to be expected. She does complain of some dizziness. She feels anxious about her symptoms. Denies abdominal pain. No pelvic pain. Bleeding has been ongoing for the last several days. Initially was just some postcoital bleeding however today she had been passing clots. While using the bathroom while waiting to be placed in a room she stood up and there was a large puddle of blood that she was standing in. The ROS documented in this emergency department record has been reviewed and confirmed by me. Those systems with pertinent positive or negative responses have been documented in the HPI. All other systems are other negative and/or noncontributory. (Jovon Rose) - Related Data Previous Rx's Medication Instructions Recorded Ferrous Sulfate [Iron (65 MG 325 mg PO BID-W/MEALS #60 tab 11/15/22 Elemental)] Ibuprofen [Motrin] 600 mg PO TID PRN #30 tab 11/15/22 Allergies Allergy/AdvReac Type Severity Reaction Status Date / Time latex AdvReac Intermediate Rapid Verified 11/14/22 15:00 Heart Rate Review of Systems ROS Other: All systems not noted in ROS Statement are negative. <Jovon Rose - Last Filed: 11/14/22 12:06> ROS Other: All systems not noted in ROS Statement are negative. <Miryam Villanueva Ravi - Last Filed: 11/19/22 12:25> ROS Statement: Those systems with pertinent positive or pertinent negative responses have been documented in the HPI. Past Medical History Past Medical History: No Reported History Additional Past Medical History / Comment(s): Obstetric history: She has had 3 previous vaginal deliveries. O+, abs neg, Rub Imm, RPR NR, Hep B neg, HIV NR. normal anatomy US. History of Any Multi-Drug Resistant Organisms: None Reported Past Surgical History: Cholecystectomy, Hernia Repair, Tonsillectomy Past Anesthesia/Blood Transfusion Reactions: No Reported Reaction Past Psychological History: Anxiety, Depression Smoking Status: Never smoker Past Alcohol Use History: None Reported Past Drug Use History: None Reported - Past Family History Mother Family Medical History: Hypertension <Jovon Rose - Last Filed: 11/14/22 12:06> General Exam Limitations: no limitations <Jovon Rose - Last Filed: 11/14/22 12:06> - General Exam Comments Initial Comments: PHYSICAL EXAM: General Impression: Alert and oriented x3, not in acute distress HEENT: Normocephalic atraumatic, extra-ocular movements intact, pupils equal and reactive to light bilaterally, mucous membranes moist. Cardiovascular: Heart regular rate and rhythm Chest: Able to complete full sentences, no retractions, no tachypnea Abdomen: abdomen soft, non-tender, non-distended, no organomegaly Musculoskeletal: Pulses present and equal in all extremities, no peripheral edema Motor: no focal deficits noted Neurological: CN II-XII grossly intact, no focal motor or sensory deficits noted Skin: Intact with no visualized rashes Psych: Normal affect and mood Pelvic exam was performed. [place] the nurse and either the electronic organ technician was present during the procedure. There were several blood clots in the vaginal vault. There was a blood clot at the cervical os. (Jovon Rose) Course Vital Signs 11/13/22 11/13/22 11/13/22 13:45 14:59 16:11 Temperature 98.6 F 97.5 F L Pulse Rate 95 142 H 101 H Respiratory 18 19 20 Rate Blood Pressure 130/82 103/63 101/57 O2 Sat by Pulse 100 100 99 Oximetry 11/13/22 18:25 Temperature 97.9 F Pulse Rate 89 Respiratory 19 Rate Blood Pressure 137/63 O2 Sat by Pulse 100 Oximetry Medical Decision Making - Lab Data Result diagrams: 11/13/22 14:27 11/13/22 14:27 <Jovon Rose - Last Filed: 11/14/22 12:06> - Lab Data Result diagrams: 11/13/22 14:27 11/13/22 14:27 <RichMiryam Ravi - Last Filed: 11/19/22 12:25> - Medical Decision Making Was pt. sent in by a medical professional or institution (, PA, PURIFICATION DIRECTOR, urgent care, hospital, or care home...) When possible be specific @ -No Did you speak to anyone other than the patient for history (EMS, parent, family, police, friend...)? What history was obtained from this source @ -History was obtained from Dr. Solis at 2:35 PM. She is well aware patient states that she was just in the office for the same issue and is been notified over the last 2-3 days that patient is been having some vaginal bleeding. Did you review nursing and triage notes (agree or disagree)? Why? @ -I reviewed and agree with nursing and triage notes Were old charts reviewed (outside hosp., previous admission, EMS record, old EKG, old radiological studies, urgent care reports/EKG's, care home records)? Report findings @ -No old charts were reviewed Differential Diagnosis (chest pain, altered mental status, abdominal pain women, abdominal pain men, vaginal bleeding, musculoskeletal, weakness, fever, dyspnea, syncope, headache, dizziness, GI bleed, back pain, seizure, CVA, palpatations, mental health)? @ -Differential Vaginal Bleeding: Spontaneous , threatened , molar , ectopic , bloody show, incompetent cervix, abruptioplacenta, placenta previa, uterine ru pture, dysfunctional uterine bleeding, hemorrhage, uterine fibroids, this is not meant to be an all-inclusive list. EKG interpreted by me (3pts min.). @ -None done X-rays interpreted by me (1pt min.). @ -None done CT interpreted by me (1pt min.). @ -None done U/S interpreted by me (1pt. min.). @ -pending What testing was considered but not performed or refused? (CT, X-rays, U/S, labs)? Why? @ -None What meds were considered but not given or refused? Why? @ -None Did you discuss the management of the patient with other professionals (pro fessionals i.e. , PA, PURIFICATION DIRECTOR, lab, RT, psych nurse, rn social services, cloth packer, teacher, special skills officer, shoe caser)? Give summary @ -Case detail with Dr. Solis, patient's [employer]AREHOUSE [employer]IPPING RECEIVING CLERK. She did feel that patient would benefit from repeat ultrasound. Clinical presentation along with pelvic exam was discussed with Dr. Solis. Was smoking cessation discussed for >3mins.? @ -No Was critical care preformed (if so, how long)? @ -No Were there social determinants of health that impacted care today? How? (Homelessness, low income, unemployed, alcoholism, drug addiction, transportation, low edu. Level, literacy, decrease access to med. care, prison, rehab)? @ -No Was there de-escalation of care discussed even if they declined (Discuss DNR or withdrawal of care, Hospice)? DNR status @ -No What co-morbidities impacted this encounter? (DM, HTN, Smoking, COPD, CAD, Cancer, CVA, ARF, Chemo, Hep., AIDS, mental health diagnosis, sleep apnea, morbid obesity)? @ -None Was patient admitted / discharged? Hospital course, mention meds given and route, prescriptions, significant lab abnormalities, going to OR and other pertinent info. @ -Pending Undiagnosed new problem with uncertain prognosis? @ -No Drug Therapy requiring intensive monitoring for toxicity (Heparin, Nitro, Insulin, Cardizem)? @ -No Were any procedures done? @ -No Diagnosis/symptom? Acute, or Chronic, or Acute on Chronic? Uncomplicated (without systemic symptoms) or Complicated (systemic symptoms)? @ -1. Vaginal bleeding in , history of subchorionic bleed Side effects of treatment? @ -No Exacerbation, Progression, or Severe Exacerbation? @ -No Poses a threat to life or bodily function? How? (Chest pain, [place], [place], pneumonia, PE, COPD, DKA, ARF, appy, cholecystitis, CVA, Diverticulitis, Homicidal, Suicidal, threat to staff... and all critical care pts) @ -yes Patient is signed out to Dr. Villanueva at 3:00 PM (Jovon Rose) I evaluated the patient myself. Patient was signed out to me pending ultrasound. Ultrasound is completed which demonstrates no intrauterine . This is discussed with the patient as well as Dr. Solis. I repeated a pelvic exam and I am able to clear all the clots from the patient's pelvis. She has a slow amount of oozing. She does not want to be admitted to the hospital. She is observed for another hour and a half. She is able to get up and ambulate. She goes to the bathroom and only has a small amount of blood. She does feel comfortable going home at this time. Instructed that she must follow-up with Dr. Solis and watch her beta Quant return to 0 before she can become again. Patient understood this. If she has any significant bleeding at home she should return to the emergency room. Patient was agreeable to this plan and discharged home in stable condition (Miryam Villanueva) - Lab Data Lab Results 11/13/22 11/13/22 11/13/22 Range/Units 14:27 14:27 14:27 WBC 15.4 H (3.8-10.6) k/uL RBC 5.03 (3.80-5.40) m/uL Hgb 12.8 (11.4-16.0) gm/dL Hct 38.0 (34.0-46.0) % MCV 75.5 L (80.0-100.0) fL MCH 25.5 (25.0-35.0) pg MCHC 33.8 (31.0-37.0) g/dL RDW 15.3 (11.5-15.5) % Plt Count 376 (150-450) k/uL MPV 7.4 Neutrophils % 84 % Lymphocytes % 13 % Monocytes % 2 % Eosinophils % 1 % Basophils % 0 % Neutrophils # 12.8 H (1.3-7.7) k/uL Lymphocytes # 1.9 (1.0-4.8) k/uL Monocytes # 0.3 (0-1.0) k/uL Eosinophils # 0.2 (0-0.7) k/uL Basophils # 0.0 (0-0.2) k/uL Microcytosis Slight Sodium 136 L (137-145) mmol/L Potassium 4.4 (3.5-5.1) mmol/L Chloride 104 (98-107) mmol/L Carbon Dioxide 24 (22-30) mmol/L Anion Gap 8 mmol/L BUN 8 (7-17) mg/dL Creatinine 0.46 L (0.52-1.04) mg/dL Est GFR (CKD-EPI)AfAm >90 (>60 ml/min/1.73 sqM) Est GFR (CKD-EPI)NonAf >90 (>60 ml/min/1.73 sqM) Glucose 99 (74-99) mg/dL Calcium 9.0 (8.4-10.2) mg/dL Total Bilirubin 0.6 (0.2-1.3) mg/dL AST 19 (14-36) U/L ALT 19 (4-34) U/L Alkaline Phosphatase 86 (38-126) U/L Total Protein 7.2 (6.3-8.2) g/dL Albumin 4.2 (3.5-5.0) g/dL HCG, Qual Detected Urine Color Urine Appearance (Clear) Urine pH (5.0-8.0) Ur Specific [place] (1.001-1.035) Urine Protein (Negative) Urine Glucose (UA) (Negative) Urine Ketones (Negative) Urine Blood (Negative) Urine Nitrite (Negative) Urine Bilirubin (Negative) Urine Urobilinogen (<2.0) mg/dL Ur Leukocyte Esterase (Negative) Urine RBC (0-5) /hpf Urine WBC (0-5) /hpf Urine Mucus (None) /hpf Blood Type O Positive Blood Type Recheck O Pos Bld Type Recheck Status No 11/13/22 Range/Units 17:42 WBC (3.8-10.6) k/uL RBC (3.80-5.40) m/uL Hgb (11.4-16.0) gm/dL Hct (34.0-46.0) % MCV (80.0-100.0) fL MCH (25.0-35.0) pg MCHC (31.0-37.0) g/dL RDW (11.5-15.5) % Plt Count (150-450) k/uL MPV Neutrophils % % Lymphocytes % % Monocytes % % Eosinophils % % Basophils % % Neutrophils # (1.3-7.7) k/uL Lymphocytes # (1.0-4.8) k/uL Monocytes # (0-1.0) k/uL Eosinophils # (0-0.7) k/uL Basophils # (0-0.2) k/uL Microcytosis Sodium (137-145) mmol/L Potassium (3.5-5.1) mmol/L Chloride (98-107) mmol/L Carbon Dioxide (22-30) mmol/L Anion Gap mmol/L BUN (7-17) mg/dL Creatinine (0.52-1.04) mg/dL Est GFR (CKD-EPI)AfAm (>60 ml/min/1.73 sqM) Est GFR (CKD-EPI)NonAf (>60 ml/min/1.73 sqM) Glucose (74-99) mg/dL Calcium (8.4-10.2) mg/dL Total Bilirubin (0.2-1.3) mg/dL AST (14-36) U/L ALT (4-34) U/L Alkaline Phosphatase (38-126) U/L Total Protein (6.3-8.2) g/dL Albumin (3.5-5.0) g/dL HCG, Qual Urine Color Light Red Urine Appearance Clear (Clear) Urine pH 5.5 (5.0-8.0) Ur Specific [place] 1.009 (1.001-1.035) Urine Protein 1+ H (Negative) Urine Glucose (UA) Negative (Negative) Urine Ketones 1+ H (Negative) Urine Blood Large H (Negative) Urine Nitrite Negative (Negative) Urine Bilirubin Negative (Negative) Urine Urobilinogen <2.0 (<2.0) mg/dL Ur Leukocyte Esterase Moderate H (Negative) Urine RBC >182 H (0-5) /hpf Urine WBC 28 H (0-5) /hpf Urine Mucus Rare H (None) /hpf Blood Type Blood Type Recheck Bld Type Recheck Status Disposition <Jovon Rose - Last Filed: 11/14/22 12:06> Is patient prescribed a controlled substance at d/c from ED?: No Time of Disposition: 18:03 <Miryam Villanueva - Last Filed: 11/19/22 12:25> Clinical Impression: Spontaneous miscarriage Disposition: HOME SELF-CARE Condition: Stable Instructions (If sedation given, give patient instructions): Miscarriage (ED) Additional Instructions: Please of follow-up with Dr. Solis. You will continue to have some bleeding however if your bleeding becomes significant, return to the emergency department. Your hormone levels will need to return to 0 before you try to get again. Dr. Solis can monitor this for you. Referrals: Andrzej Kramer MD [Primary Care Provider] - 1-2 days Allison Solis DO [Doctor of Osteopathic Medicine] - 1-2 days
[2022-11-13] MEDS ORDERED: SODIUM CHLORIDE 0.9% 1,000 ML IV STA (14:36)
[2022-11-13 14:42] LABS: Basophils % (A) 0 %; Eosinophils # (A) 0.2 k/uL (0-0.7); Eosinophils % (A) 1 %; HGB 12.8 gm/dL (11.4-16.0); Lymphocytes # (A) 1.9 k/uL (1.0-4.8); Lymphocytes % (A) 13 %; MCH 25.5 pg (25.0-35.0); MCHC 33.8 g/dL (31.0-37.0); MCV 75.5 fL (80.0-100.0); Mean Platelet Volume 7.4; Microcytosis Slight; Monocytes # (A) 0.3 k/uL (0-1.0); Monocytes % (A) 2 %; Neutrophils # (A) 12.8 k/uL (1.3-7.7); Neutrophils % (A) 84 %; Platelet Count 376 k/uL (150-450); RBC 5.03 m/uL (3.80-5.40); RDW 15.3 % (11.5-15.5); WBC 15.4 k/uL (3.8-10.6)
[2022-11-13] MEDS ORDERED: MORPHINE SULFATE 4 MG/ML SYRINGE IV STA (14:54)
[2022-11-13 14:55] LABS: ALT 19 U/L (4-34); AST 19 U/L (14-36); African American GFR (CKD) >90 (>60 ml/min/1.73 sqM); Albumin 4.2 g/dL (3.5-5.0); Alkaline Phosphatase 86 U/L (38-126); Anion Gap 8 mmol/L; Blood Urea Nitrogen 8 mg/dL (7-17); Carbon Dioxide 24 mmol/L (22-30); Chloride 104 mmol/L (98-107); Glucose 99 mg/dL (74-99); Non-African American GFR(CKD) >90 (>60 ml/min/1.73 sqM); Potassium 4.4 mmol/L (3.5-5.1); Sodium 136 mmol/L (137-145); Total Bilirubin 0.6 mg/dL (0.2-1.3); Total Protein 7.2 g/dL (6.3-8.2)
--- NOTE | 2022-11-13 15:44 | US ---
EXAMINATION TYPE: Transabdominal DATE OF EXAM: 11/13/2022 3:19 PM COMPARISON: NONE CLINICAL HISTORY: pelvic pain. Bleeding patient states had ultrasound at Doctors office earlier today and everything looked fine. No previous exams done here. EXAM PERFORMED: Transabdominal (TA) EXAM MEASUREMENTS: GESTATIONAL AGE / DATING Physician Established: (10 weeks/4 days) EDC: 06/07/2023 Dates by LMP: (10 weeks/4 days) EDC: Dates by First Scan: No previous, this is first scan Dates by Current Scan for: No IUP seen at this time MATERNAL ANATOMY Uterus: 13.6 x 6.2 x 8.6 cm Thickened echogenic cervix could represent clot fresh bleed. Right Ovary: Obscured by bowel gas. Left Ovary: Obscured by bowel gas. Post CDS / Adnexa: wnl Presence of free fluid: wnl Presence of corpus luteal cyst: no Presence of subchorionic bleed: no GESTATION / SURVEY IUP: No IUP seen at this time. Differential diagnosis would include spontaneous and ectopic . Urinary bladder is sonolucent. IMPRESSION: 1. Thickened endometrial canal. No intrauterine gestation identified. Correlate for spontaneous abort ion.
[2022-11-13 18:26] VITALS: BP 137/63; PULSE 89; RESP 19; TEMP 97.9
[2022-11-13 18:34] LABS: Appearance,Urine Clear (Clear); Bilirubin,Urine Negative (Negative); Blood,Urine Large (Negative); Color,Urine Light Red; Glucose,Urine (UA) Negative (Negative); Ketones,Urine 1+ (Negative); Leukocyte Esterase,Urine Moderate (Negative); Mucus,Urine Rare /hpf; Nitrite,Urine Negative (Negative); PH, Urine 5.5 (5.0-8.0); Protein,Urine 1+ (Negative); RBC,Urine >182 /hpf (0-5); Specific Gravity,Urine 1.009 (1.001-1.035); Urobilinogen,Urine <2.0 mg/dL (<2.0); WBC,Urine 28 /hpf (0-5)
[2022-11-13 19:28] LABS: HCG,Qualitative Serum Detected
== END 2022-11-13 18:27 | disposition home or self-care (01) ==
LOC: EC 13:36
DX: O03.9 Complete or unspecified spontaneous abortion without complication (principal); Z91.040 Latex allergy status; Z86.59 Personal history of other mental and behavioral disorders; Z3A.11 11 weeks gestation of pregnancy
CPT/HCPCS: 36415; 86900; 86901; 80053; 85025; 81001; 84703; 76801; 99284; 96374; 96361 ×4; J2270

== ENCOUNTER 2022-11-14 14:12 | Observation (INO) | payer MEDICARE, OTHER ==
[2022-11-14] MEDS ORDERED: SODIUM CHLORIDE 0.9% 1,000 ML IV ONE ×2 (14:41→15:34)
[2022-11-14 15:24] LABS: INR 0.9 (<1.2); Partial Thromboplastin Time 22.8 sec (22.0-30.0); Prothrombin Time 9.9 sec (9.0-12.0)
[2022-11-14] MEDS ORDERED: MORPHINE SULFATE 4 MG/ML SYRINGE IVP STA (15:34)
[2022-11-14 15:40] LABS: Basophils % (A) 0 %; Eosinophils # (A) 0.1 k/uL (0-0.7); Eosinophils % (A) 1 %; HCT 28.3 % (34.0-46.0); Lymphocytes # (A) 2.3 k/uL (1.0-4.8); Lymphocytes % (A) 17 %; MCH 25.4 pg (25.0-35.0); MCHC 33.2 g/dL (31.0-37.0); MCV 76.5 fL (80.0-100.0); Mean Platelet Volume 6.7; Microcytosis Slight; Monocytes # (A) 0.4 k/uL (0-1.0); Monocytes % (A) 3 %; Neutrophils # (A) 10.2 k/uL (1.3-7.7); Neutrophils % (A) 79 %; Platelet Count 329 k/uL (150-450); RDW 15.3 % (11.5-15.5); WBC 13.1 k/uL (3.8-10.6)
[2022-11-14 15:41] LABS: HGB 9.4 gm/dL (11.4-16.0)
[2022-11-14 15:46] LABS: ALT 17 U/L (4-34); AST 15 U/L (14-36); African American GFR (CKD) >90 (>60 ml/min/1.73 sqM); Albumin 3.7 g/dL (3.5-5.0); Alkaline Phosphatase 65 U/L (38-126); Anion Gap 5 mmol/L; Blood Urea Nitrogen 8 mg/dL (7-17); Calcium 8.9 mg/dL (8.4-10.2); Carbon Dioxide 25 mmol/L (22-30); Chloride 102 mmol/L (98-107); Glucose 104 mg/dL (74-99); Non-African American GFR(CKD) >90 (>60 ml/min/1.73 sqM); Potassium 3.9 mmol/L (3.5-5.1); Sodium 132 mmol/L (137-145); Total Bilirubin 0.5 mg/dL (0.2-1.3); Total Protein 6.3 g/dL (6.3-8.2)
[2022-11-14 16:28] LABS: HCG,Quantitative Serum 15467.9 mIU/mL
--- NOTE | 2022-11-14 16:32 | ED ---
General Adult HPI - General Source: patient, RN notes reviewed Mode of arrival: wheelchair Limitations: no limitations <Nisha Martinez - Last Filed: 11/14/22 18:53> <Miryam Villanueva - Last Filed: 11/17/22 19:22> - General Chief complaint: Abdominal Pain Stated complaint: BLOOD LOSS-MISCARRIAGE Time Seen by Provider: 11/14/22 14:33 - History of Present Illness Initial comments: 22-year-old female who is G7, P4, a 3 who presents to the emergency department with a chief complaint of vaginal bleeding. Patient reports that she woke up today and has been passing heavy clots. She reports she swelling through a pad every couple of minutes. She was seen here yesterday for the same however she was discharged as her bleeding had stopped. Today she reports increased dizziness, lightheadedness, vaginal clots. She denies any chest pain, palpitations, shortness of breath. (Nisha Martinez) - Related Data Previous Rx's Medication Instructions Recorded Ferrous Sulfate [Iron (65 MG 325 mg PO BID-W/MEALS #60 tab 11/15/22 Elemental)] Ibuprofen [Motrin] 600 mg PO TID PRN #30 tab 11/15/22 Allergies Allergy/AdvReac Type Severity Reaction Status Date / Time latex AdvReac Intermediate Rapid Verified 11/14/22 15:00 Heart Rate Review of Systems ROS Other: All systems not noted in ROS Statement are negative. <Nisha Martinez - Last Filed: 11/14/22 18:53> ROS Other: All systems not noted in ROS Statement are negative. <Miryam Villanueva - Last Filed: 11/17/22 19:22> ROS Statement: Those systems with pertinent positive or pertinent negative responses have been documented in the HPI. Past Medical History Past Medical History: No Reported History Additional Past Medical History / Comment(s): Obstetric history: She has had 3 previous vaginal deliveries. O+, abs neg, Rub Imm, RPR NR, Hep B neg, HIV NR. normal anatomy US. History of Any Multi-Drug Resistant Organisms: None Reported Past Surgical History: Cholecystectomy, Hernia Repair, Tonsillectomy Past Anesthesia/Blood Transfusion Reactions: No Reported Reaction Past Psychological History: Anxiety, Depression Smoking Status: Never smoker Past Alcohol Use History: None Reported Past Drug Use History: None Reported - Past Family History Mother Family Medical History: Hypertension <Nisha Martinez - Last Filed: 11/14/22 18:53> General Exam Limitations: no limitations General appearance: alert, in no apparent distress Head exam: Present: atraumatic, normocephalic, normal inspection Eye exam: Present: normal appearance, PERRL, EOMI. Absent: scleral icterus, conjunctival injection, periorbital swelling ENT exam: Present: normal exam, mucous membranes moist Neck exam: Present: normal inspection. Absent: tenderness, meningismus, lymphadenopathy Respiratory exam: Present: normal lung sounds bilaterally. Absent: respiratory distress, wheezes, rales, rhonchi, stridor Cardiovascular Exam: Present: regular rate, normal rhythm, normal heart sounds. Absent: systolic murmur, diastolic murmur, rubs, gallop, clicks GI/Abdominal exam: Present: soft, normal bowel sounds. Absent: distended, tenderness, guarding, rebound, rigid External exam: Present: other (external exam is without any rashes, lesions, erythema. Vaginal canal with marked, bright red blood and clots. Cervical os is visualized and is closed. There is no cervical motion tenderness or adnexal tenderness. Pelvic exam performed with Francisca hanson RN present. ) Extremities exam: Present: normal inspection, full ROM, normal capillary refill. Absent: tenderness, pedal edema, joint swelling, calf tenderness Back exam: Present: normal inspection Neurological exam: Present: alert, oriented X3, CN II-XII intact Psychiatric exam: Present: normal affect, normal mood Skin exam: Present: warm, dry, intact, normal color. Absent: rash <Nisha Martinez - Last Filed: 11/14/22 18:53> Course <Nisha Martinez - Last Filed: 11/14/22 18:53> Vital Signs 11/14/22 14:19 Temperature 98.0 F Pulse Rate 113 H Respiratory 22 Rate Blood Pressure 127/81 O2 Sat by Pulse 100 Oximetry - Reevaluation(s) Reevaluation #1: 11/14/22 16:[address] Choudhury OB cash reconciliation specialist who reports that he will be in to evaluate the patient. (Nisha Martinez) Reevaluation #2: 11/14/22 18:[address] Choudhury, CASER on-call who agrees and accepts the patient for admission (Nisha Martinez) Medical Decision Making - Lab Data Result diagrams: 11/14/22 15:01 11/14/22 15:01 <Nisha Martinez - Last Filed: 11/14/22 18:53> - Lab Data Result diagrams: 11/15/22 06:52 11/14/22 15:01 <Miryam Villanueva - Last Filed: 11/17/22 19:22> - Medical Decision Making Was pt. sent in by a medical professional or institution (, [facility], DOOR SERVICEMAN, urgent care, hospital, or skilled nursing...) When possible be specific @ -[No] Did you speak to anyone other than the patient for history (EMS, parent, family, police, friend...)? What history was obtained from this source @ -[No] Did you review nursing and triage notes (agree or disagree)? Why? @ -[I reviewed and agree with nursing and triage notes] Were old charts reviewed (outside hosp., previous admission, EMS record, old EKG, old radiological studies, urgent care reports/EKG's, skilled nursing records)? Report findings @ -[No old charts were reviewed] Differential Diagnosis (chest pain, altered mental status, abdominal pain women, abdominal pain men, vaginal bleeding, weakness, fever, dyspnea, syncope, headache, dizziness, GI bleed, back pain, seizure, CVA, palpatations, mental health, musculoskeletal)? @ -[not applicable] EKG interpreted by me (3pts min.). @ -[As above] X-rays interpreted by me (1pt min.). @ -[None done] CT interpreted by me (1pt min.). @ -[None done] U/S interpreted by me (1pt. min.). @ -[None done] What testing was considered but not performed or refused? (CT, X-rays, U/S, labs)? Why? @ -[None] What meds were considered but not given or refused? Why? @ -[None] Did you discuss the management of the patient with other professionals (professionals i.e. , [facility], DOOR SERVICEMAN, lab, RT, psych nurse, nursing home social worker, steam pressure chamber operator, teacher, ambulance officer, caser)? Give summary @ -[No] Was smoking cessation discussed for >3mins.? @ -[No] Was critical care preformed (if so, how long)? @ -[No] Were there social determinants of health that impacted care today? How? (Homelessness, low income, unemployed, alcoholism, drug addiction, transportation, low edu. Level, literacy, decrease access to med. care, long-term, rehab)? @ -[No] Was there de-escalation of care discussed even if they declined (Discuss DNR or withdrawal of care, Hospice)? DNR status @ -[No] What co-morbidities impacted this encounter? (DM, HTN, Smoking, COPD, CAD, Cancer, CVA, ARF, Chemo, Hep., AIDS, mental health diagnosis, sleep apnea, mo rbid obesity)? @ -[None] Was patient admitted / discharged? Hospital course, mention meds given and route, prescriptions, significant lab abnormalities, going to OR and other pertinent info. @ Transfer to the OR. The 22-year-old female presenting to the emergency department for vaginal bleeding. Patient had a thorough history and physical exam performed while in the ED. Physical exam reveals marked bright red blood in the vaginal vault with large clots. Case discussed with Dr. Choudhury, CASER on-call who also evaluated the patient believes patient is a good candidate for the OR. Case discussed with Dr. Villanueva, [facility] who agrees with plan of care. Undiagnosed new problem with uncertain prognosis? @ -[No] Drug Therapy requiring intensive monitoring for toxicity (Heparin, Nitro, Insulin, Cardizem)? @ -[No] Were any procedures done? @ -[No] Diagnosis/symptom? @ -vaginal bleeding - spontaneous with retained products of conception Acute, or Chronic, or Acute on Chronic? @ -acute Uncomplicated (without systemic symptoms) or Complicated (systemic symptoms)? @ -uncomplicated Side effects of treatment? @ -[No] Exacerbation, Progression, or Severe Exacerbation? @ -[No] Poses a threat to life or bodily function? How? (Chest pain, [place], [place], pneumonia, PE, COPD, DKA, ARF, appy, cholecystitis, CVA, Diverticulitis, Homicidal, Suicidal, threat to staff... and all critical care pts) @ -low likelihood (Nisha Martinez) - Lab Data Lab Results 11/14/22 11/14/22 11/14/22 Range/Units 14:56 15:01 15:01 WBC 13.1 H (3.8-10.6) k/uL RBC 3.70 L (3.80-5.40) m/uL Hgb 9.4 L D (11.4-16.0) gm/dL Hct 28.3 L (34.0-46.0) % MCV 76.5 L (80.0-100.0) fL MCH 25.4 (25.0-35.0) pg MCHC 33.2 (31.0-37.0) g/dL RDW 15.3 (11.5-15.5) % Plt Count 329 (150-450) k/uL MPV 6.7 Neutrophils % 79 % Lymphocytes % 17 % Monocytes % 3 % Eosinophils % 1 % Basophils % 0 % Neutrophils # 10.2 H (1.3-7.7) k/uL Lymphocytes # 2.3 (1.0-4.8) k/uL Monocytes # 0.4 (0-1.0) k/uL Eosinophils # 0.1 (0-0.7) k/uL Basophils # 0.0 (0-0.2) k/uL Microcytosis Slight PT 9.9 (9.0-12.0) sec INR 0.9 (<1.2) APTT 22.8 (22.0-30.0) sec Sodium (137-145) mmol/L Potassium (3.5-5.1) mmol/L Chloride (98-107) mmol/L Carbon Dioxide (22-30) mmol/L Anion Gap mmol/L BUN (7-17) mg/dL Creatinine (0.52-1.04) mg/dL Est GFR (CKD-EPI)AfAm (>60 ml/min/1.73 sqM) Est GFR (CKD-EPI)NonAf (>60 ml/min/1.73 sqM) Glucose (74-99) mg/dL Calcium (8.4-10.2) mg/dL Total Bilirubin (0.2-1.3) mg/dL AST (14-36) U/L ALT (4-34) U/L Alkaline Phosphatase (38-126) U/L Total Protein (6.3-8.2) g/dL Albumin (3.5-5.0) g/dL HCG, Quant mIU/mL Blood Type O Positive Blood Type Recheck O Pos Bld Type Recheck Status No Antibody Screen NEGATIVE Spec Expiration Date 11/17/2022 - 230011/14/22 Range/Units 15:01 WBC (3.8-10.6) k/uL RBC (3.80-5.40) m/uL Hgb (11.4-16.0) gm/dL Hct (34.0-46.0) % MCV (80.0-100.0) fL MCH (25.0-35.0) pg MCHC (31.0-37.0) g/dL RDW (11.5-15.5) % Plt Count (150-450) k/uL MPV Neutrophils % % Lymphocytes % % Monocytes % % Eosinophils % % Basophils % % Neutrophils # (1.3-7.7) k/uL Lymphocytes # (1.0-4.8) k/uL Monocytes # (0-1.0) k/uL Eosinophils # (0-0.7) k/uL Basophils # (0-0.2) k/uL Microcytosis PT (9.0-12.0) sec INR (<1.2) APTT (22.0-30.0) sec Sodium 132 L (137-145) mmol/L Potassium 3.9 (3.5-5.1) mmol/L Chloride 102 (98-107) mmol/L Carbon Dioxide 25 (22-30) mmol/L Anion Gap 5 mmol/L BUN 8 (7-17) mg/dL Creatinine 0.56 (0.52-1.04) mg/dL Est GFR (CKD-EPI)AfAm >90 (>60 ml/min/1.73 sqM) Est GFR (CKD-EPI)NonAf >90 (>60 ml/min/1.73 sqM) Glucose 104 H (74-99) mg/dL Calcium 8.9 (8.4-10.2) mg/dL Total Bilirubin 0.5 (0.2-1.3) mg/dL AST 15 (14-36) U/L ALT 17 (4-34) U/L Alkaline Phosphatase 65 (38-126) U/L Total Protein 6.3 (6.3-8.2) g/dL Albumin 3.7 (3.5-5.0) g/dL HCG, Quant 66294.9 mIU/mL Blood Type Blood Type Recheck Bld Type Recheck Status Antibody Screen Spec Expiration Date Disposition Time of Disposition: 18:12 <Nisha Martinez - Last Filed: 11/14/22 18:53> <Miryam Villanueva - Last Filed: 11/17/22 19:22> Clinical Impression: Vaginal bleeding, Spontaneous miscarriage, Incomplete Disposition: ADMITTED IP TO THIS [facility] Condition: Stable
--- NOTE | 2022-11-14 17:17 | P.HPOB ---
History of Present Illness H&P Date: 11/14/22 Chief Complaint: Vaginal bleeding in This patient is a 22-year-old 7 para 4 female estimated gestational age approximately 7 weeks who was being followed by Dr. Solis for vaginal bleeding and . Patient ultrasound done yesterday morning that showed a viable with a subchorionic bleed. Patient subsequently went to the emergency department yesterday afternoon with increased bleeding and large clots and had an ultrasound that thought she had passed the however there was some tissue in the lower uterine segment/cervical area. Patient was sent home continued to bleed heavily and now has dropped her hemoglobin from 12 to juvenal roximately 9-1/2. Examination in the ER shows brisk bleeding with some tissue at the os that has not passed. Review of Systems Constitutional: Reports as per HPI Past Medical History Past Medical History: No Reported History Additional Past Medical History / Comment(s): Obstetric history: She has had 3 previous vaginal deliveries. O+, abs neg, Rub Imm, RPR NR, Hep B neg, HIV NR. normal anatomy US. History of Any Multi-Drug Resistant Organisms: None Reported Past Surgical History: Cholecystectomy, Hernia Repair, Tonsillectomy Past Anesthesia/Blood Transfusion Reactions: No Reported Reaction Past Psychological History: Anxiety, Depression Smoking Status: Never smoker Past Alcohol Use History: None Reported Past Drug Use History: None Reported - Past Family History Mother Family Medical History: Hypertension Medications and Allergies Home Medications Medication Instructions Recorded Confirmed Type No Known Home Medications 07/10/21 11/14/22 History Allergies Allergy/AdvReac Type Severity Reaction Status Date / Time latex AdvReac Intermediate Rapid Verified 11/14/22 15:00 Heart Rate Exam Vital Signs Temp Pulse Resp BP Pulse Ox 11/14/22 14:19 98.0 F 113 H 22 127/81 100 Intake and Output 11/14/22 11/14/22 11/14/22 06:59 14:59 22:59 Other: Weight 147.871 kg - OBG Physical Exam Vagina: normal moisture (Large amount of blood in the vault with tissue seen at the os.), no discharge Results Result Diagrams: 11/14/22 15:01 11/14/22 15:01 Abnormal Lab Results - Last 24 Hours (Table) 11/14/22 11/14/22 Range/Units 15:01 15:01 WBC 13.1 H (3.8-10.6) k/uL RBC 3.70 L (3.80-5.40) m/uL Hgb 9.4 L D (11.4-16.0) gm/dL Hct 28.3 L (34.0-46.0) % MCV 76.5 L (80.0-100.0) fL Neutrophils # 10.2 H (1.3-7.7) k/uL Sodium 132 L (137-145) mmol/L Glucose 104 H (74-99) mg/dL Assessment and Plan Assessment: This is a 22-year-old 7 para 4 female estimated gestational age 7 weeks with significant vaginal bleeding and incomplete . Patient dropped her hemoglobin approximately 3 g and for this reason we're going to proceed with immediate suction D&C. I did discuss this with the patient including the risks of surgery including infection, bleeding, possible uterine perforation. All the patient's questions are answered written consent is obtained. (1) Incomplete Current Visit: Yes Status: Acute Code(s): O03.4 - INCOMPLETE SPONTANEOUS WITHOUT COMPLICATION SNOMED Code(s): 866566529
[2022-11-14] MEDS ORDERED: LACTATED RINGERS 1,000 ML IV ONE ×2 (17:57→18:33)
[2022-11-14] MEDS ORDERED: KETOROLAC 15 MG/ML 1 ML VIAL ONE (17:59)
[2022-11-14] MEDS ORDERED: fentaNYL (PF) 50 MCG/ML 2 ML AMP ONE (17:59)
[2022-11-14] MEDS ORDERED: MIDAZOLAM 2 MG/2 ML VIAL ONE (17:59)
[2022-11-14] MEDS ORDERED: ONDANSETRON 4 MG/2 ML VIAL ONE (17:59)
[2022-11-14] MEDS ORDERED: SUCCINYLCHOLINE CHLORIDE 200 MG/10 ML VIAL IV ONE (17:59)
[2022-11-14] MEDS ORDERED: DEXAMETHASONE SOD PHOSPHATE 4 MG/ML 1 ML VIAL ONE (17:59)
[2022-11-14] MEDS ORDERED: LIDOCAINE 2% INJ 20 MG/ML (2 ML VIAL) ONE (17:59)
[2022-11-14] MEDS ORDERED: PROPOFOL 10 MG/ML 20 ML VIAL IV ONE (17:59)
[2022-11-14] MEDS ORDERED: NALOXONE 0.4 MG/ML 1 ML VIAL IV PRN (18:10)
[2022-11-14] MEDS ORDERED: SODIUM CHLORIDE 0.9% 1,000 ML IV SCH (18:15)
--- NOTE | 2022-11-14 18:31 | P.OP ---
Date of Procedure: 11/14/22 Preoperative Diagnosis: #1: Incomplete , approximately 7 weeks. #2: Uterine hemorrhage Postoperative Diagnosis: Same Procedure(s) Performed: Suction D&C Anesthesia: GATITO Surgeon: Edmar Choudhury Estimated Blood Loss (ml): 50 Urine output (ml): 25 Pathology: other (Uterine contents) Condition: stable Disposition: PACU Indications for Procedure: Please see dictated H&P for intimate details of this patient's admission. Brief summary this is a pleasant 22-year-old multigravida patient who has been followed by Dr. Solis for vaginal bleeding and . Patient ultrasound done yesterday in the morning that showed a viable with a large subchorionic bleed. Patient began bleeding went to the emergency for yesterday afternoon. At that time an ultrasound indicated that was possible complete and patient was sent home. Patient states that she continued to bleed got heavier throughout the night repeat presented to the emergency department this afternoon. Hemoglobin yesterday was 12-1/2 today is 9.5 and she is having ongoing hemorrhage. Examination in the emergency department shows tissue at the os and brisk bleeding. I recommended patient proceed with suction D&C for treatment. She does understand this procedure and risks and risks of infection, bleeding, possible uterine perforation. All the patient's questions are answered written consent is obtained. Operative Findings: This patient had a large amount of retained products of conception Description of Procedure: This patient is taken to the operating room where she is laid in the supine position. She subsequent undergoes general endotracheal anesthesia without incident. With an adequate level of anesthesia she's placed in dorsal lithotomy position. She has a vaginal perineal prep and drape. Examination under anesthesia shows some large clots in the vaginal vault and the cervix appears be dilated about a centimeter. Bladder is drained for clear urine. Weighted speculum was placed posterior vagina. I grabbed the anterior lip of the cervix with an Allis clamp. Using a 12 curved suction curette, this is placed into the uterine cavity and suction is applied and a large amount of tissue is removed. Multiple passes are made until no further tissue was noted. A large curette is then used to do a gentle 4 quadrant curettage and no further tissue was noted. A final pass of the suction curet is done. It is noted this time the bleeding markedly subsides. With this done the procedure is ended. The weighted speculum and Allis clamps removed. Patient is awakened from anesthesia and taken to recovery room satisfactory condition.
[2022-11-14] MEDS ORDERED: IBUPROFEN 600 MG TAB PO PRN (19:30)
[2022-11-14] MEDS ORDERED: ACETAMINOPHEN TAB 325 MG TAB PO PRN (19:32)
[2022-11-14] MEDS: FERROUS SULFATE 325 MG TAB PO STA (21:26)
[2022-11-15] MEDS: FERROUS SULFATE 325 MG TAB PO STA ×2 (04:41→05:21)
--- NOTE | 2022-11-15 07:15 | P.PN ---
Progress Note - Text Progress Note Date: 11/15/22 Hospital day #2. Patient is admitted after her D&C last evening to watch her bleeding and repeat a CBC. Patient's bleeding has been completely normal and has subsided. CBC is still pending at this time. Vital signs are stable and she is afebrile. Plan today is to check CBC, encourage ambulation and discharge home later this morning
--- NOTE | 2022-11-15 07:20 | P.DS ---
Providers Date of admission: 11/14/22 18:32 Expected date of discharge: 11/15/22 Attending physician: Edmar Choudhury Primary care physician: Stated None - Discharge Diagnosis(es) (1) Incomplete Current Visit: Yes Status: Acute Hospital Course: Please see dictated H&P and operative note on this patient's admission. Brief summary this is a pleasant 22-year-old female admitted to the emergency department with complaints of vaginal bleeding found to have an incomplete . Patient subsequently on to have a suction D&C which resolved this i ssue. Patient did bleed a lot prior to the D&C and had some secondary anemia. On hospital day #2 patient's felt be stable for discharge home follow up with Dr. Solis in 1 week. Procedures: Suction D&C Patient Condition at Discharge: Fair Plan - Discharge Summary New Discharge Prescriptions: New Ferrous Sulfate [Iron (65 MG Elemental)] 325 mg PO BID-W/MEALS #60 tab Ibuprofen [Motrin] 600 mg PO TID PRN #30 tab PRN Reason: Pain Discharge Medication List Ferrous Sulfate [Iron (65 MG Elemental)] 325 mg PO BID-W/MEALS #60 tab 11/15/22 [Rx] Ibuprofen [Motrin] 600 mg PO TID PRN #30 tab 11/15/22 [Rx] Follow up Appointment(s)/Referral(s): None,Stated [Primary Care Provider] - 1-2 days Patient Instructions/Handouts: Miscarriage (DC), Iron Rich Diet (ED), Iron Deficiency Anemia (GEN) Activity/Diet/Wound Care/Special Instructions: No intercourse or anything per vagina for 7 days. Please take her iron as instructed follow-up with Dr. Solis in 1 week for postop follow-up Discharge Disposition: HOME SELF-CARE
[2022-11-15 08:42] LABS: Basophils % (A) 0 %; Eosinophils % (A) 0 %; HCT 25.2 % (34.0-46.0); HGB 8.4 gm/dL (11.4-16.0); Lymphocytes # (A) 1.5 k/uL (1.0-4.8); Lymphocytes % (A) 14 %; MCH 26.3 pg (25.0-35.0); MCHC 33.3 g/dL (31.0-37.0); MCV 78.9 fL (80.0-100.0); Mean Platelet Volume 7.7; Monocytes # (A) 0.3 k/uL (0-1.0); Monocytes % (A) 3 %; Neutrophils # (A) 8.3 k/uL (1.3-7.7); Neutrophils % (A) 82 %; Platelet Count 371 k/uL (150-450); RBC 3.19 m/uL (3.80-5.40); RDW 15.7 % (11.5-15.5); WBC 10.2 k/uL (3.8-10.6)
[2022-11-15 08:46] VITALS: BP 138/79; PULSE 98; RESP 16; TEMP 97.5
[2022-11-15] MEDS ORDERED: FERROUS SULFATE 325 MG TAB PO SCH (17:30)
== END 2022-11-15 10:10 | disposition home or self-care (01) ==
LOC: EC 14:12 → 4FBP 18:32
PROVIDERS: ADMIT Obstetrics & Gynecology; ATTEND Obstetrics & Gynecology
DX: O03.4 Incomplete spontaneous abortion without complication (principal); D50.0 Iron deficiency anemia secondary to blood loss (chronic); F32.A Depression, unspecified; F41.9 Anxiety disorder, unspecified; Z91.040 Latex allergy status; Z90.49 Acquired absence of other specified parts of digestive tract; Z98.890 Other specified postprocedural states; Z82.49 Family history of ischemic heart disease and other diseases of the circulatory system
CPT/HCPCS: 59812; 96374; 99284; 36415; 86900; 86901; 80053; 85025 ×2; 85610; 85730; 86850; 84702; G0378 ×2; J2250; J0330; J2270; J1100; J2405; J3010; J1885; J2704; J2001; 88305

== ENCOUNTER → 2023-09-24 | Outpatient (CLI) | payer BC, MEDICARE, OTHER ==
--- NOTE | 2023-09-25 11:38 | US ---
EXAMINATION TYPE: US OB anatomy transabd DATE OF EXAM: 09/24/2023 COMPARISON: NONE CLINICAL INDICATION: Female, 23 years old with history of O36.62X0 MATERNAL CARE FOR EXCESS LINO WTH, SE; Anatomy TECHNIQUE: Transabdominal (TA) EXAM MEASUREMENTS: GESTATIONAL AGE / DATING Physician Established: (20 weeks/0 days) EDC: 02/11/2024 Dates by LMP: (20 weeks/0 days) EDC: 02/11/2024 Dates by First Scan: (20 weeks/0 days) EDC: 02/11/2024 Dates by Current Scan for: (20 weeks/0 days) EDC: 02/11/2024 SURVEY IUP: Single PLACENTA: Anterior There is a 2.2 x 1.4 x 1.4cm hypoechoic area seen within the placenta tissue, p ossible venous jose. This can be reassessed at follow-up. PREVIA: No previa NANCY: 19.9 cm Normal CERVICAL LENGTH (transabdominal: norm > 3.0cm): 3.9 cm BIOMETRY PRESENTATION: Vertex LIE: Longitudinal BPD: 4.7 cm 20 weeks / 2 days HC: 17.4 cm 19 weeks / 6 days AC: 15.2 cm 20 weeks / 3 days FL: 3.3 cm 20 weeks / 2 days ESTIMATED WEIGHT IN GRAMS: 344.4 grams ESTIMATED WEIGHT IN LBS/OZ: 0 lbs. 12 oz. WEIGHT PERCENTAGE BASED ON ESTABLISHED DATE: 62.5 % HC/AC: 1.2 Normal FL/AC: 21.7 HEART RATE: 106 bpm RHYTHM: Normal ANATOMY SEEN (within normal limits): * Lateral Vent (< 1 cm) 0.7 cm * Cisterna Magna (< 1.1 cm) 0.3 cm * Nuchal Fold (< 0.6 cm) 0.4 cm * Cerebellum (varies with age) 2.0 cm Choroid Plexus (bilateral) Midline Falx Cavus Septi Pellucidi Stomach Nose / Lips Diaphragm Kidneys (bilateral) Bladder Cord Insert Three Vessel Cord Longitudinal Spine Transverse Spine Arms (bilateral) Legs (bilateral) ANATOMY NOT SEEN OR SUBOPTIMALLY VISUALIZED: Situs 4 chamber heart Outflow tracts: LVOT/RVOT MATERNAL WALL MEASUREMENT: 3.5 cm from skin to anterior uterine wall (if exam limited due to body butt bitus). Bindery Operator notes: Exam limited due to patient body habitus and movement. Heart rate dipped throughout the exam. Called Shelley at office and told her about low heart rate. IMPRESSION: 1. Single live intrauterine with estimated gestational age of 20 weeks 0 days by LMP. Curr ent ultrasound biometry is exactly concordant placing the child at the 63rd percentile for weight. 2. A 2.2 cm hypoechoic area within the placenta, probably a prominent placental jose. Consider short interval follow-up to reassess. 3. A few structures on the survey were suboptimally visualized (situs, four-chamber heart, and outflow tracts). The patient can be scheduled for a rescan for missed anatomy if desired. The remaini ng anatomy appears normal. 4. The clerical adjudicator noted episodes of dipping in the heart rate down to 106 BPM. Reassess at [facility] low-up.
== END | disposition home or self-care (01) ==
LOC: RADUSWWP 14:19
PROVIDERS: ATTEND Obstetrics & Gynecology
DX: O36.62X0 Maternal care for excessive fetal growth, second trimester, not applicable or unspecified (principal); O36.8320 Maternal care for abnormalities of the fetal heart rate or rhythm, second trimester, not applicable or unspecified; Z3A.20 20 weeks gestation of pregnancy
CPT/HCPCS: 76811

== ENCOUNTER → 2024-10-10 | Outpatient (CLI) | payer MEDICARE, OTHER ==
--- NOTE | 2024-10-10 14:21 | US ---
EXAMINATION TYPE: Transabdominal DATE OF EXAM: 10/10/2024 1:24 PM COMPARISON: Multiple, most recent 09/22/2024 CLINICAL INDICATION: Female, 24 years old with history of Z34.90 ENCNTR FOR SUPRVSN OF NORMAL PREGNAN CY, UNS; Follow up on subchorionic hemorrhage, patient states bleeding stopped. TECHNIQUE: Transabdominal (TA) with grayscale and color Doppler imaging including first trimester pre gnancy. FINDINGS: EXAM MEASUREMENTS: GESTATIONAL AGE / DATING Physician Established: (11 weeks/1 days) EDC: 04/30/2025 Dates by LMP: ( weeks/ days) EDC: Dates by First Scan: (11 weeks/1 days) EDC: Dates by Current Scan for: (11 weeks/5 days) EDC: 04/26/2025 MATERNAL ANATOMY Uterus: 12.8 x 7.7 x 9.2 cm Right Ovary: 3.2 x 2.1 x 2.7 cm Left Ovary: 3.0 x 1.8 x 2.0 cm Post CDS / Adnexa: WNL Presence of free fluid: No Presence of corpus luteal cyst: No Presence of subchorionic bleed: Not redemonstrated. GESTATION / SURVEY CRL: 4.97 (11 weeks/5 days) Gestational Sac morphology: WNL Gestational Sac MSD: NA ( weeks/ days) Yolk Sac (normal less than 6mm): 6 mm Cardiac Activity/Heart Rate: 160 bpm Rhythm: Normal IUP: Viable IUP Nuchal Translucency 10-14wks (normal less than 3mm): Not able to assess due to movement and lie Age Appropriate Anatomy Cord Insertion: Too early to visualize Limbs: Visualized Calvarium: Visualized Date of LMP: NA Beta HcG (if available): NA Single live intrauterine gestation redemonstrated. No cervical thinning. Satisfactory interval progre ssion noted. No free fluid is seen. IMPRESSION: 1. As above. [facility], , 10/10/2024 2:19 PM
== END | disposition home or self-care (01) ==
LOC: RADUSWWP 13:02
DX: Z34.91 Encounter for supervision of normal pregnancy, unspecified, first trimester (principal); Z3A.11 11 weeks gestation of pregnancy
CPT/HCPCS: 76801

== ENCOUNTER → 2024-12-07 | Outpatient (CLI) | payer MEDICARE, OTHER ==
--- NOTE | 2024-12-08 06:19 | US ---
EXAMINATION TYPE: US OB anatomy transabd DATE OF EXAM: 12/07/2024 COMPARISON: Prior ultrasound October 10, 2024 CLINICAL INDICATION: Female, 24 years old with history of Z34.90 SUPERVISION OF NORMAL PREGNANCVY; Hx miscarriage TECHNIQUE: Transabdominal (TA) with grayscale imaging of single gestation. FINDINGS: EXAM MEASUREMENTS: GESTATIONAL AGE / DATING Physician Established: (19 weeks/2 days) EDC: 04/30/2025 Dates by First Scan: (20 weeks/0 days) EDC: 04/26/2025 Dates by Current Scan for: (20 weeks/2 days) EDC: 04/24/2025 SURVEY IUP: Single PLACENTA: Anterior slightly heterogenous PREVIA: No previa NANCY: *Not performed. Patient needs NANCY when she comes back for OB call back. CERVICAL LENGTH (transabdominal: norm > 3.0cm): 3.7 cm BIOMETRY PRESENTATION: Vertex BPD: 4.5 cm 19 weeks / 5 days HC: 17.5 cm 20 weeks / 1 days AC: 15.7 cm 20 weeks / 6 days FL: 3.2 cm 20 weeks / 0 days ESTIMATED WEIGHT IN GRAMS: 349 grams ESTIMATED WEIGHT IN LBS/OZ: 0 lbs. 2 oz. WEIGHT PERCENTAGE BASED ON ESTABLISHED DATE: 95 % HC/AC: 1.1 Normal FL/AC: 20% HEART RATE: 142 bpm RHYTHM: Normal ANATOMY SEEN (within normal limits): * Lateral Vent (< 1 cm) 0.77 cm * Cisterna Magna (< 1.1 cm) 0.52 cm * Nuchal Fold (< 0.6 cm) 0.46 cm * Cerebellum (varies with age) 1.98 cm Choroid Plexus (bilateral) Midline Falx Cavus Septi Pellucidi Stomach Situs Diaphragm Kidneys (bilateral) Bladder Cord Insert Three Vessel Cord Longitudinal Spine Arms (bilateral) Legs (bilateral) ANATOMY NOT SEEN: Outflow tracts: LVOT/RVOT Nose / Lips Transverse Spine - slightly limited Four Chamber Heart - ?moderator band - hyperechoic area seen right ventricle Patient scheduled to come back for structures not seen and NANCY. MATERNAL WALL MEASUREMENT: 3.1cm from skin to anterior uterine wall (if exam limited due to body hab itus). Single live intrauterine gestation is redemonstrated. No thinning of the cervix. Cephalad presentatio n. No placenta previa. biometry measurements congruent and within normal limits. Detailed anato mical survey is performed. Several structures suboptimally evaluated during real-time scanning and wi ll require repeat scanning. IMPRESSION: As above. [facility], , 12/08/2024 6:17 AM
== END | disposition home or self-care (01) ==
LOC: RADUSWWP 14:30
DX: Z34.90 Encounter for supervision of normal pregnancy, unspecified, unspecified trimester (principal); Z3A.00 Weeks of gestation of pregnancy not specified
CPT/HCPCS: 76811

== ENCOUNTER → 2024-12-14 | Outpatient (CLI) | payer MEDICARE, OTHER ==
--- NOTE | 2024-12-14 16:35 | US ---
EXAMINATION TYPE: US OB Call Back DATE OF EXAM: 12/14/2024 COMPARISON: NONE CLINICAL INDICATION: Female, 24 years old with history of OB CALL BACK; GESTATIONAL AGE / DATING Dates by Initial Survey Scan: (20 weeks/2 days) EDC: 05/01/2025 HEART RATE: 153 bpm RHYTHM: Normal ANATOMY SEEN (second anatomic survey look): Four Chamber Heart Outflow tracts:? LVOT/RVOT Nose / Lips Transverse Spine NANCY- 14.2 cm, normal All anatomical structures now visualized IMPRESSION: Additional structures visualized, as above. [facility], , 12/14/2024 4:32 PM
== END | disposition home or self-care (01) ==
LOC: RADUSWWP 14:58
DX: Z53.9 Procedure and treatment not carried out, unspecified reason (principal)

== ENCOUNTER 2025-01-31 16:23 | Outpatient (CLI) | payer MEDICARE, OTHER ==
[2025-01-31 17:39] VITALS: BP 112/56; PULSE 106; RESP 16; TEMP 98.2
--- NOTE | 2025-02-10 13:37 | P.MSEPDOC ---
Presenting Problems - Arrival Data Date of Arrival on Unit: 01/31/25 Time of Arrival on Unit: 16:23 Mode of Transport: Ambulatory - Complaint OB-Reason for Admission/Chief Complaint: Decreased Movement Comment: x2 days Medical History - Information : 8 Para: 4 Term: 4 : 0 Abortions: Spontaneous or Elective: 3 Number of Living Children: 4 - Gestational Age Gestational Age by ANNETTE (wks/days): 27 Weeks and 1 Days - History Comment: clinic patient Review of Systems - Review of Systems Constitutional: No problems Breast: No problems ENT: No problems Cardiovascular: No problems Respiratory: No problems Gastrointestinal: No problems Genitourinary: No problems Musculoskeletal: No problems Neurological: No problems Skin: No problems Vital Signs - Temperature Temperature: 98.2 F Temperature Source: Oral - Pulse Right Brachial Pulse Rate: 106 Pulse Assessment Method: Automatic Cuff - Respirations Respiratory Rate: 16 Oxygen Delivery Method: Room Air - Blood Pressure Right Arm Sitting Blood Pressure: 112/56 Blood Pressure Mean: 74 Blood Pressure Source: Automatic Cuff Medical Screen Scoring - Assessment - Baby A Baseline FHR: 140 Heart Rate - NICHD Category: Category I (Normal) Physician Notification - Physician Notified Physician Notified Date: 01/31/25 Physician Notified Time: 17:15 Physician: Wilfred Wilson New Order Received: Yes (d/c with instruction) Maternal Triage Index - Maternal Triage Index Presenting for scheduled procedure w/no complaint: No - Stat/Priority 1 Stat Priority 1: No - Urgent/Priority 2 Urgent Priority 2: Yes Provider Notified: Wilfred Wilson Provider Notified Time: 17:15 Criteria Met for Priority 2: 27.1 decreased movment Disposition - Disposition OB Disposition: Triage Discharge Date: 01/31/25 Discharge Time: 17:30 I agree with the RN Medical Screening Exam: Yes Physician's MSE Comment: I have neither seen nor examined the patient Case reviewed; plan agreed upon as documented in EMR&OBIX.: Yes Diagnosis: DECREASED MOVEMENTS, THIRD TRIMESTER, FETUS 1
== END 2025-01-31 17:30 | disposition home or self-care (01) ==
LOC: FBPOP 16:23
PROVIDERS: ATTEND Obstetrics & Gynecology
DX: O36.8131 Decreased fetal movements, third trimester, fetus 1 (principal); Z3A.27 27 weeks gestation of pregnancy; Z91.040 Latex allergy status
CPT/HCPCS: 99213

== ENCOUNTER 2025-02-21 17:38 | Outpatient (CLI) | payer MEDICARE, OTHER ==
--- NOTE | 2025-02-21 21:15 | US ---
EXAMINATION TYPE: US OB limited DATE OF EXAM: 02/21/2025 COMPARISON: US 12/07/24, 12/14/24 CLINICAL INDICATION: Female, 24 years old with history of bleeding, r/o abruption, placental plaement ; patient states bleeding after intercourse and slight cramping TECHNIQUE:: Transabdominal (TA) FINDINGS: slightly limited due to body habitus GESTATIONAL AGE / DATING No growth performed on today?s study per ordering physician SURVEY PLACENTA: Anterior/ fundal PREVIA: No Previa Ultrasound evidence of abruption? no NANCY: 10.0 cm ? borderline oligo per hospital standards vs normal PRESENTATION: breech LIE: oblique head towards mat left HEART RATE: 142 bpm RHYTHM: Normal IMPRESSION: 1. No placental abruption identified with the anterior fundal placenta. 2. Single intrauterine gestation in breech presentation. Cardiac activity measures 142 bpm. 3. Borderline NANCY 10.0 [facility], Workstation: [facility], 02/21/2025 9:13 PM
[2025-02-21 22:22] VITALS: BP 117/71; PULSE 98; RESP 16; TEMP 97
--- NOTE | 2025-02-26 09:33 | P.MSEPDOC ---
Presenting Problems - Arrival Data Date of Arrival on Unit: 02/21/25 Time of Arrival on Unit: 17:38 Mode of Transport: Portable - Complaint OB-Reason for Admission/Chief Complaint: Daquan Bleeding Comment: Pt states "I got off him after finishing and blood was just dripping out. He was covered in bright red blood too." denies clots. States then showered and cleaned up and had no bleeding until went to bathroom about 40 min later and had some more bright red with wiping. denies clots but states mucusy discharge also noted (not semen as "he did not finish iniside Medical History - Information : 8 Para: 4 Term: 4 : 3 Abortions: Spontaneous or Elective: 3 Number of Living Children: 4 - Gestational Age Gestational Age by ANNETTE (wks/days): 30 Weeks and 1 Days Review of Systems - Review of Systems Constitutional: No problems Breast: No problems ENT: No problems Cardiovascular: No problems Respiratory: No problems Gastrointestinal: No problems Genitourinary: No problems Musculoskeletal: No problems Neurological: No problems Skin: No problems Vital Signs - Temperature Temperature: 97.0 F Temperature Source: Temporal Artery Scan - Pulse Right Pulse Rate: 98 - Respirations Respiratory Rate: 16 Oxygen Delivery Method: Room Air O2 Sat by Pulse Oximetry: 98 - Blood Pressure Right Arm Blood Pressure: 117/71 Blood Pressure Mean: 86 Blood Pressure Source: Automatic Cuff Medical Screen Scoring - Uterine Contractions Frequency From (mins): 0 Frequency To (mins): 0 Duration From (seconds): 0 Duration To (seconds): 0 - Assessment - Baby A Baseline FHR: 150 Physician Notification - Physician Notified Physician Notified Date: 02/21/25 Physician Notified Time: 18:32 Physician: Wilfred Wilson New Order Received: Yes (Ultrasound) - Notification Comment Comment: ultrasoud results reviewed and reported to Dr Wilson including colin 10 no placental issues. breech position. discharge order received with pelvic rest instructions Maternal Triage Index - Maternal Triage Index Presenting for scheduled procedure w/no complaint: No - Stat/Priority 1 Stat Priority 1: No - Urgent/Priority 2 Urgent Priority 2: Yes Provider Notified: Wilfred Wilson Provider Notified Time: 18:32 Criteria Met for Priority 2: bleeding 30 weeks Disposition - Disposition OB Disposition: Discharge to home Discharge Date: 02/21/25 Discharge Time: 21:40 I agree with the RN Medical Screening Exam: Yes Physician's MSE Comment: I have neither seen nor examined the patient. Case reviewed; plan agreed upon as documented in EMR&OBIX.: Yes Diagnosis: RELATED CONDITIONS, UNSPECIFIED, THIRD TRIMESTER
== END 2025-02-21 21:40 | disposition home or self-care (01) ==
LOC: FBPOP 17:38
PROVIDERS: ATTEND Obstetrics & Gynecology
DX: O32.1XX0 Maternal care for breech presentation, not applicable or unspecified (principal); O46.93 Antepartum hemorrhage, unspecified, third trimester; Z3A.30 30 weeks gestation of pregnancy; Z91.040 Latex allergy status
CPT/HCPCS: 76815; G0463; 99215